=== PATIENT | female | born 1935 | race Hispanic/Latino ===

== ENCOUNTER 2017-02-23 10:45 | Emergency (ER) | payer MEDICARE, OTHER ==
[2017-02-23 11:02] VITALS: PULSE 87; RESP 18; TEMP 98.7; BMI 32.5
--- NOTE | 2017-02-23 11:48 | ED PDOC ---
Arrival/HPI - General Historian: Patient, Family (Daughter ) <Beto Rosas - Last Filed: 02/23/17 13:37> <NishBryant Davida - Last Filed: 02/23/17 13:54> - General Chief Complaint: Chest Pain Time Seen by Provider: 02/23/17 11:03 - History of Present Illness Narrative History of Present Illness (Text): 02/23/17 11:37 81 year old patient with a PMH of COPD, Emphysema, Asthma, Glaucoma and CT ~ 30 years ago. The patient has been experiencing back and right sided chest pains for the past 2 to 3 weeks. The pain was improving and yesterday the patient said it was all but resolved. This morning the patient was awoken from her sleep at 0430 this morning with a feeling of pressure in the left side of her chest. The pain is worse with deep inspiration and does not radiate anywhere. She had previously been taking Tylenol and using a heating pad on her back which relieved the pain. She took Tylenol and used the heating pad this morning but it did not help. She came into the ED today because this is the worst the pain has been. The patient states that she has been experiencing a productive cough for many months. The patient state she is bringing up white sputum when she coughs. She went to see her Geospatial Image Analyst, Dr. Razo, approximately 2 weeks ago for the cough and chest/back pains. They told patient to take Tylenol and apply a heat pad because they believed she had a pulled muscle as a result of the coughing. Patient recently had a stress on 02/16/17 which showed anterior septal changes but no changes from a previous stress test in 2014. Patient's lean manufacturing engineer is Dr. Mara Norman. She denies diaphoresis, n/v, palpitations, sob, lightheadedness, dizziness, numbness or tingling. PMH: COPD, Emphysema, Asthma, Glaucoma and CT ~ 30 years ago PSH: Cholecystecomy, total knee replacements b/l Family: unknown Social: former smoker, denies alcohol/illicit drug use Allergies: NKDA (Beto Rosas) Past Medical History - Provider Review Nursing Documentation Reviewed: Yes - Cardiac Hx CT: Yes (30 yrs ago) Hx Hypertension: Yes - Pulmonary Hx Chronic Obstructive Pulmonary Disease (COPD): Yes - Neurological Hx Neurological Disorder: No - HEENT Hx HEENT Disorder: No - Renal Hx Renal Disorder: No - Endocrine/Metabolic Hx Endocrine Disorders: No - Hematological/Oncological Hx Blood Disorders: No - Integumentary Hx Dermatological Disorder: No - Musculoskeletal/Rheumatological Hx Musculoskeletal Disorders: No - Gastrointestinal Hx Gastrointestinal Disorders: No - Genitourinary/Gynecological Hx Genitourinary Disorders: No - Psychiatric Hx Psychophysiologic Disorder: No Hx Substance Use: No - Surgical History Hx Vascular Access Device: Yes Other/Comment: B/L knees <Beto Rosas - Last Filed: 02/23/17 13:37> Family/Social History - Physician Review Nursing Documentation Reviewed: Yes Family/Social History: Unknown Family HX Smoking Status: Former Smoker Hx Alcohol Use: No Hx Substance Use: No <Beto Rosas - Last Filed: 02/23/17 13:37> Allergies/Home Meds <Beto Rosas - Last Filed: 02/23/17 13:37> <Bryant Mock - Last Filed: 02/23/17 13:54> Allergies/Adverse Reactions: Allergies No Known Allergies Allergy (Verified 12/19/14 10:31) Home Medications: Home Meds Medication Instructions Recorded Confirmed Ezetimibe/Simvastatin [Vytorin 10 1 tab PO DAILY 12/19/14 02/23/17 mg-20 mg] Fluticasone/Salmeterol 250/50 1 puff INH BID 12/19/14 02/23/17 [Advair Diskus 250/50] Latanoprost 0.005% Opht [Xalatan 1 drop BOTHEYES DAILY 12/19/14 02/23/17 Opht] Nitroglycerin 0.4 mg/hr [Nitro-Dur 1 patch TD DAILY 12/19/14 02/23/17 0.4 mg/hr Patch] diltiaZEM [Cardizem] 120 mg PO DAILY 12/19/14 02/23/17 Azelastine/Fluticasone [Dymista 23 spray INH DAILY 02/23/17 02/23/17 Nasal [place]] Metoprolol Succinate [Toprol XL] 25 mg PO DAILY 02/23/17 02/23/17 Review of Systems - Review of Systems Constitutional: Normal Eyes: absent: Vision Changes, Photophobia, Eye Pain ENT: Normal Respiratory: Cough, Sputum (white, long standing hx of productive cough). absent: SOB, Wheezing Cardiovascular: Chest Pain. absent: Palpitations, Edema, Calf Pain, Orthopnea, Syncope Gastrointestinal: absent: Abdominal Pain, Constipation, Diarrhea, Nausea, Vomiting, Appetite Changes Genitourinary Female: absent: Dysuria, Frequency, Hematuria Musculoskeletal: Back Pain (upper back, shoots from left to right side). absent : Neck Pain Skin: absent: Rash Neurological: absent: Headache, Dizziness, Speech Changes, Facial Droop Endocrine: absent: Diaphoresis Psychiatric: Normal <Beto Rosas - Last Filed: 02/23/17 13:37> Physical Exam Vital Signs Reviewed: Yes Temperature: Afebrile Blood Pressure: Normal Pulse: Regular Respiratory Rate: Normal Appearance: Positive for: Well-Appearing, Non-Toxic, Comfortable Pain Distress: None Mental Status: Positive for: Alert and Oriented X 3 - Systems Exam Head: Present: Atraumatic, Normocephalic Extroacular Muscles: Present: EOMI Conjunctiva: Present: Normal Mouth: Present: Moist Mucous Membranes Nose (External): Present: Atraumatic. No: Abrasion Nose (Internal): Present: Normal Inspection, No Active Bleeding, Moist Neck: Present: Normal Range of Motion. No: JVD Respiratory/Chest: Present: Clear to Auscultation, Tender to Palpation (left sternal boarder, extremely tender to palpation ). No: Respiratory Distress, Accessory Muscle Use, Wheezes, Retracting Cardiovascular: Present: Regular Rate and Rhythm, Normal S1, S2 Abdomen: Present: Normal Bowel Sounds. No: Tenderness, Distention, Peritoneal Signs, Guarding Back: No: Midline Tenderness, Paraspinal Tenderness Upper Extremity: Present: Normal Inspection, NORMAL PULSES. No: Edema, Tenderness Lower Extremity: Present: Normal Inspection. No: Edema, CALF TENDERNESS, Tenderness Neurological: Present: GCS=15 Skin: Present: Warm, Dry Lymphatic: No: Cervical Adenopathy Psychiatric: Present: Alert, Oriented x 3, Normal Insight, Normal Concentration <Beto Rosas - Last Filed: 02/23/17 13:37> Medical Decision Making - Lab Interpretations I have reviewed the lab results: Yes <Beto Rosas - Last Filed: 02/23/17 13:37> - Lab Interpretations I have reviewed the lab results: Yes - RAD Interpretation Guitar Repair Technician: Radiologist - EKG Interpretation Interpreted by ED Physician: Yes Type: 12 lead EKG <Bryant Mock - Last Filed: 02/23/17 13:54> ED Course and Treatment: 02/23/17 11:53 Chest pain - r/o ACS vs Costochondritis - EKG - NSR @87bpm, left axis deviation, Q waves in leads V1-V4 (previous anteroseptal infarct.) - CXR - no acute disease - Troponins - >0.01 - Toradol 30mg IVP given for pain control - No aspirin given due to patient took 81mg aspirin this morning. - Dr. Norman (cardio) contacted and is aware patient is in the ED. (AlisonBeto) 02/23/17 In agreement with resident note, which includes further HPI details. Patient was seen and evaluated with resident, came up with plan and treatment together. 02/23/17 12:30 EKG: NSR at 87 bpm with Q waves anteroseptal, LAD, no change from previous EKG Chest Pain r/o ACS vs MSK 02/23/17 13:52 On reevaluation, patient feels much better. No longer having pain with inhalation and most of the pain has subsided. Case was discussed with Dr. Norman who came to evaluate patient. He agrees that patient can be discharged home with close PMD and Cardiology follow up. Patient and daughter agree with plan. Advised to take tylenol for pain. Advised to return to the ED if symptoms worsen or any other concern. (Bryant Mock) - Lab Interpretations Lab Results: 02/23/17 11:55 02/23/17 11:55 Lab Results 02/23/17 11:55: Sodium 142, Potassium 4.0, Chloride 103, Carbon Dioxide 28, Anion Gap 15, BUN 15, Creatinine 0.5, Est GFR ( Amer) > 60, Est GFR (Non- Af Amer) > 60, Random Glucose 100, Calcium 10.0, Magnesium 2.0, Total Bilirubin 0.5, AST 39, ALT 36, Alkaline Phosphatase 144 H, Lactate Dehydrogenase 615, Total Creatine Kinase 79, Troponin I < 0.01, NT-Pro-B Natriuret Pep 308, Total Protein 7.5, Albumin 4.1, Globulin 3.4, Albumin/Globulin Ratio 1.2 02/23/17 11:55: WBC 12.4 H, RBC 4.57, Hgb 13.1, Hct 39.6, MCV 86.7, MCH 28.7, MCHC 33.1, RDW 15.8 H, Plt Count 384, MPV 8.4, Gran % 70.6 H, Lymph % (Auto) 20.6 L, Duchesne % (Auto) 7.6 H, Eos % (Auto) 0.9 L, Baso % (Auto) 0.3, Gran # 8.74 H, Lymph # 2.6, Duchesne # 0.9 H, Eos # 0.1, Baso # 0.04 - RAD Interpretation Radiology Orders: 02/23/17 11:34 CHEST PORTABLE [RAD] Stat - Medication Orders Current Medication Orders: Discontinued Medications Ketorolac Tromethamine (Toradol) 30 mg IVP STAT STA Stop: 02/23/17 11:33 Last Admin: 02/23/17 12:00 Dose: 30 mg <Beto Rosas - Last Filed: 02/23/17 13:37> - PA / TAX COMPLIANCE OFFICER / Resident Statement MD/DO has reviewed & agrees with the documentation as recorded. MD/DO has examined the patient and agrees with the treatment plan. - Scribe Statement The provider has reviewed the documentation as recorded by the Scribe <Bryant Mock - Last Filed: 02/23/17 13:54> - Scribe Statement 02/23/2017 Flaquita Jennings Attestation: All medical record entries made by the Scribe were at my direction and personally dictated by me. I have reviewed the chart and agree that the record accurately reflects my personal performance of the history, physical exam, medical decision making, and the department course for this patient. I have also personally directed, reviewed, and agree with the discharge instructions and disposition. (Bryant Mock) Disposition/Present on Arrival - Present on Arrival Any Indicators Present on Arrival: No History of DVT/PE: No History of Uncontrolled Diabetes: No Urinary Catheter: No History of Decub. Ulcer: No History Surgical Site Infection Following: None - Disposition Have Diagnosis and Disposition been Completed?: Yes Disposition Time: 13:30 Patient Plan: Discharge <Beto Rosas - Last Filed: 02/23/17 13:37> - Disposition Have Diagnosis and Disposition been Completed?: Yes <NishPalomoifrah Higuera - Last Filed: 02/23/17 13:54> - Disposition Diagnosis: Chest pain Disposition: HOME/ ROUTINE Condition: IMPROVED Discharge Instructions (ExitCare): Chest Pain (ED), Chest Pain (DC), Costochondritis (ED) Additional Instructions: Ms Mayen, thank you for letting us take care of you today. Your provider was Dr. Mock. You were treated for Chest Pain. The emergency medical care you received today was directed at your acute symptoms. If you were prescribed any medication, please fill it and take as directed. It may take several days for your symptoms to resolve. Return to the Emergency Department if your symptoms worsen, do not improve, or if you have any other problems. Please contact your doctor or call one of the physicians/clinics you have been referred to that are listed on the Patient Visit Information form that is included in your discharge packet. Bring any paperwork you were given at discharge with you along with any medications you are taking to your follow up visit. Our treatment cannot replace ongoing medical care by a primary care provider (PCP) outside of the emergency department. Thank you for allowing the mention team to be part of your care today. If you had an X-Ray or CT scan: A Radiologist will review the ED reading if any change in treatment is needed we will contact you. If you had a blood, urine, or wound culture: It will take several days for the results, if any change in treatment is needed we will contact you. If you had an STI test: It will take 48 hours for the results. Please call after 1 week if you have not heard back. Referrals: Mara Norman MD [Staff Provider] - Follow up with primary Demarcus Proctor MD [Primary Care Provider] - Follow up with primary Forms: [employer] (Portuguese)
[2017-02-23 12:05] LABS: BASO # 0.04 K/mm3 (0.0-2.0); BASO % 0.3 % (0.0-3.0); EOS # 0.1 (0.0-0.7); EOS % 0.9 % (1.5-5.0); GRAN # 8.74 (1.4-6.5); GRAN % 70.6 % (50.0-68.0); HEMATOCRIT 39.6 % (36.0-48.0); LYMPH # 2.6 (1.2-3.4); LYMPH % 20.6 % (22.0-35.0); MEAN CELL VOLUME 86.7 fl (80.0-105.0); MEAN CORPUSCULAR HEMOGLOBIN 28.7 pg (25.0-35.0); MEAN CORPUSCULAR HGB CONC 33.1 g/dl (31.0-37.0); MEAN PLATELET VOLUME 8.4 fl (7.0-11.0); MONO # 0.9 (0.1-0.6); MONO % 7.6 % (1.0-6.0); RED CELL DISTRIBUTION WIDTH 15.8 % (11.5-14.5); WHITE BLOOD COUNT 12.4 10^3/ul (4.5-11.0)
[2017-02-23 12:17] LABS: ALB/GLOB RATIO 1.2 (1.1-1.8); ALKALINE PHOSPHATASE 144 U/L (38-133); ALT/SGPT 36 U/L (7-56); AST/SGOT 39 U/L (15-39); BILIRUBIN,TOTAL 0.5 mg/dL (0.2-1.3); BLOOD UREA NITROGEN 15 mg/dL (7-21); CARBON DIOXIDE 28 mmol/L (21-33); CHLORIDE 103 mmol/L (98-107); GFR AFRICAN-AMERICAN > 60; GLUCOSE,RANDOM 100 mg/dL (70-110); SODIUM 142 mmol/L (132-148); TOTAL PROTEIN 7.5 g/dL (5.8-8.3)
[2017-02-23 12:32] LABS: TROPONIN I < 0.01 ng/mL
--- NOTE | 2017-02-23 12:36 | RAD ---
HISTORY: chest pain COMPARISON: No prior. FINDINGS: LUNGS: No active pulmonary disease. PLEURA: No significant pleural effusion identified, no pneumothorax apparent. CARDIOVASCULAR: Normal. OSSEOUS STRUCTURES: Old healed fracture right 8th rib posteriorly. VISUALIZED UPPER ABDOMEN: Normal. OTHER FINDINGS: None. IMPRESSION: No active disease.
[2017-02-23 13:29] VITALS: BP 114/66; O2SAT 96
--- NOTE | 2017-02-23 15:20 | CARD ---
APPROVED REPORT EKG Measurement Heart [id number] <Conclusion> Normal sinus rhythm Minimal voltage criteria for LVH, may be normal variant Anteroseptal infarct, age undetermined Abnormal ECG
--- NOTE | 2017-02-24 03:07 | CON ---
DATE: 02/23/2017 REASON FOR CONSULTATION: Cardiac evaluation and chest pain. BRIEF CLINICAL HISTORY: An 81-year-old female with a past medical history significant for hypertension, COPD, who came in with a complaint of 1 week off and on chest pain, increases on taking a deep breath. It initially started on the right side, then briefly on the left side, and increases when taking a deep breath. She got Toradol and was completely chest pain-free. Now, the patient feels an occasional twinge type of pain. No history of chest pain, no dyspnea on exertion. PAST HISTORY: Significant for COPD, hypertension, hyperlipidemia. CURRENT MEDICATIONS: The patient is taking Cardizem 120 mg, nitroglycerin patch, metoprolol 25 mg, Xalatan eye drops, Advair, Vytorin 10/20 one tablet daily, and nasal spray. ALLERGY: NO KNOWN DRUG ALLERGY. PREVIOUS CARDIAC WORKUP: As follows, the patient recently had a stress test done on 02/16/2017 that shows an essentially normal myocardial perfusion study, ejection fraction 63%, fixed defect, no reversible ischemia. In comparison to the last study from 12/19/2014, no significant changes are noted. REVIEW OF SYSTEMS: As per HPI. PHYSICAL EXAMINATION: As follows: VITAL SIGNS: Temperature afebrile, heart rate is 87, blood pressure 112/64. HEENT: PERRLA. Extraocular muscles are intact. NECK: Supple. No carotid bruit. No thyromegaly. CHEST: Clear to auscultation. HEART: S1 and S2, regular. ABDOMEN: Soft. EXTREMITIES: Clubbing and cyanosis negative. LABORATORY DATA: Blood workup as follows: WBC 12.5, hemoglobin 13.2, hematocrit 39.6, platelet count 384. Chemistry showed sodium 142, potassium 4, chloride 106, carbon dioxide 15, anion gap of 28, BUN 15, creatinine 0.5. Troponin 0.01. EKG shows normal sinus rhythm, poor R-wave progression, no acute ST-T wave changes noted. IMPRESSION: Atypical chest pain, increases with coughing, recent stress test 02/16/2017, one week ago was negative; history of chronic obstructive pulmonary disease; history of hypertension; history of diabetes, borderline; and history of hyperlipidemia. RECOMMENDATIONS: The patient is okay to be discharged. Discussed with ER physician, discussed with the patient, discussed with the daughter. If the chest pain recurs or if the patient gets diaphoretic or has heaviness in the chest, to come to the emergency room. So far, this chest pain appears musculoskeletal and increases on twisting and according to the patient and daughter, when she moves it hurts and she was unable to move when she came to the emergency room. After giving the Toradol, the patient feels a lot better. It also increases on taking a deep breath. So far, troponin is negative, no acute ST-T changes. PLAN: Okay to be discharged, continue followup in the office, but if the chest pain recurs or increases with shortness of breath on minimal exertion, please come to the emergency room. Thank you Dr. Proctor for providing me the opportunity in taking care of the patient. Mara Norman MD cc: Demarcus Proctor MD
== END 2017-02-23 13:49 | disposition home or self-care (01) ==
LOC: ED 10:45
DX: R07.9 Chest pain, unspecified (principal); I25.2 Old myocardial infarction; I10 Essential (primary) hypertension; J44.9 Chronic obstructive pulmonary disease, unspecified; Z87.891 Personal history of nicotine dependence
CPT/HCPCS: 71010; 80053; 82550; 83615; 83735; 83880; 84484; 85025; 93005; 96374; 99284; J1885

== ENCOUNTER 2017-04-29 14:11 | Inpatient (IN) | payer MEDICARE, OTHER ==
--- NOTE | 2017-04-29 15:07 | RAD ---
HISTORY: The only clinical history provided is "rule out infiltrate". Technique: Single view portable semi erect @ 14:44. COMPARISON: 02/23/2017 FINDINGS: LUNGS: Question mass, infiltrate AP window. The finding is marked on the study for review. The finding was not seen previously. PLEURA: No significant pleural effusion identified, no pneumothorax apparent. CARDIOVASCULAR: Cardiomegaly. No evidence of acute, significant cardiovascular disease. OSSEOUS STRUCTURES: No significant abnormalities. VISUALIZED UPPER ABDOMEN: Normal. OTHER FINDINGS: None. IMPRESSION: Left Upper lobe infiltrate/mass . Follow-up to resolution advised. Please note: No preliminary interpretation of this examination rendered by emergency department personnel (Physician and/or PA declined to provide preliminary report of their findings/ observations).
[2017-04-29 15:11] LABS: BASO # 0.03 K/mm3 (0.0-2.0); BASO % 0.2 % (0.0-3.0); EOS % 0.2 % (1.5-5.0); GRAN # 13.29 (1.4-6.5); GRAN % 85.2 % (50.0-68.0); HEMATOCRIT 35.7 % (36.0-48.0); LYMPH # 1.2 (1.2-3.4); LYMPH % 7.8 % (22.0-35.0); MEAN CELL VOLUME 87.5 fl (80.0-105.0); MEAN CORPUSCULAR HEMOGLOBIN 27.9 pg (25.0-35.0); MEAN CORPUSCULAR HGB CONC 31.9 g/dl (31.0-37.0); MEAN PLATELET VOLUME 8.6 fl (7.0-11.0); MONO % 6.6 % (1.0-6.0); WHITE BLOOD COUNT 15.6 10^3/ul (4.5-11.0)
[2017-04-29 15:23] LABS: ALB/GLOB RATIO 1.1 (1.1-1.8); ALKALINE PHOSPHATASE 133 U/L (38-126); ALT/SGPT 37 U/L (7-56); AST/SGOT 35 U/L (14-36); BILIRUBIN,TOTAL 0.9 mg/dL (0.2-1.3); BLOOD UREA NITROGEN 14 mg/dL (7-21); CARBON DIOXIDE 30 mmol/L (21-33); CHLORIDE 103 mmol/L (98-107); GFR AFRICAN-AMERICAN > 60; GLUCOSE,RANDOM 136 mg/dL (70-110); MAGNESIUM 1.9 mg/dL (1.7-2.2); POTASSIUM 3.7 mmol/L (3.6-5.0); SODIUM 141 mmol/L (132-148); TOTAL PROTEIN 6.7 g/dL (5.8-8.3)
[2017-04-29] MEDS: Albuterol-Ipratrop 3 mg / 0.5 (3 ml) UD IH SCH ×4 (15:25→20:21)
[2017-04-29] MEDS ORDERED: Iohexol 350 MG/100 ML VIAL ONE (15:48)
[2017-04-29 15:56] LABS: TROPONIN I 0.46 ng/mL
[2017-04-29] MEDS ORDERED: cefTRIAXone 1 gm 1 GM/100 ML BAG IVPB STA (17:54)
[2017-04-29] MEDS ORDERED: Azithromycin 500MG/NS 250ml 500 MG/250 ML BAG IVPB STA (17:54)
[2017-04-29 17:59] LABS: PH,URINE 6.5 (4.7-8.0); URINE BILIRUBIN NEGATIVE (NEGATIVE); URINE BLOOD SMALL (NEGATIVE); URINE GLUCOSE (UA) NEGATIVE (NEGATIVE); URINE KETONE 15 mg/dL (NEGATIVE); URINE LEUKOCYTE ESTERASE TRACE Leu/uL (NEGATIVE); URINE PROTEIN NEGATIVE mg/dL (<30 mg/dL); URINE UROBILINOGEN 0.2 E.U./dL (<1 E.U./dL)
--- NOTE | 2017-04-29 18:02 | CT ---
PROCEDURE: CT Chest with contrast (Pulmonary Angiogram) HISTORY: r/o PE/mass COMPARISON: None available. TECHNIQUE: Axial computed tomography images were obtained of the chest in the pulmonary arterial phase of enhancement. Coronal and sagittal reformatted images were created and reviewed. Intravenous contrast dose: Unknown contrast dose. Technologist failed to document dose of contrast administered. There is failure on the part of the technologist to probably document via Smart prep technique exactly where the pulmonary artery will was identified resulting in suboptimal injection. Mean Hounsfield unit values in the main pulmonary artery: 178.36. Radiation dose: Total exam DLP = 469.49 mGy-cm. This CT exam was performed using one or more of the following dose reduction techniques: Automated exposure control, adjustment of the mA and/or kV according to patient size, and/or use of iterative reconstruction technique. FINDINGS: Complex primarily cystic mass with Hounsfield unit values ranging between the 11 and 32 which appears to be contiguous with the descending aorta left main pulmonary artery, lobar branches. The mass circumferentially impresses upon the left mainstem bronchus. The mass is difficult to quantify as it is somewhat diffuse, infiltrative. At the level of the pulmonary arteries and left mainstem bronchus the mass measures 6 x 6.9 x 3.5 cm. The mass also displays contiguity with the wall of the mid esophagus. PULMONARY ARTERIES: Nondiagnostic study beyond the main and lobar branches of the pulmonary arterial system. . AORTA: No acute findings. No thoracic aortic aneurysm. LUNGS: Peripheral infiltrates multiple segments of the right lower lobe and left lower lobe. PLEURAL SPACES: Trace HEART: Unremarkable. No cardiomegaly. No significant pericardial effusion. LYMPH NODES: No lymphadenopathy. BONES, CHEST WALL: Unremarkable. No fracture or destructive lesion OTHER FINDINGS: Unremarkable. IMPRESSION: No large, central pulmonary emboli. Limitations of the study been described in greater detail above. 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 The mass displays contiguity with the descending aorta. A sub carinal component is also identified. Communication of results and limitations of the procedure discussed with the attending physician in the emergency department at 17:04 at and 17:53.
[2017-04-29 18:04] LABS: URINE APPEARANCE CLEAR (CLEAR); URINE COLOR YELLOW (YELLOW)
[2017-04-29 18:06] LABS: URINE AMORPHOUS SEDIMENT FEW; URINE BACTERIA MANY (NEG)
[2017-04-29] MEDS: Enoxaparin 80 mg Syringe SC SCH (18:11)
--- NOTE | 2017-04-29 18:38 | ED PDOC ---
Arrival/HPI - General Chief Complaint: Medical Clearance Time Seen by Provider: 04/29/17 14:30 Historian: Patient - History of Present Illness Narrative History of Present Illness (Text): 04/29/17 14:30 An 81 year old female, whose past medical history includes COPD, Emphysema and Asthma, presents to the emergency department with daughter for cough. Patient was referred to come to the emergency department by PMD today. Patient has a persistent dry cough for the past 2-3 months. Reports dyspnea on exertion over the same time period, cough and dyspnea on exertion increasing. Denies any fever , chest pain, shortness of breath or any other complaints at this time. History of smoking in the past, hasn't smoked in 20+ years. PMD: Dr. Proctor Time/Duration: > month Symptom Onset: Sudden Symptom Course: Unchanged Activities at Onset: Rest Context: Home Past Medical History - Provider Review Nursing Documentation Reviewed: Yes - Infectious Disease Hx of Infectious Diseases: None - Cardiac Hx CA: Yes (30 yrs ago) Hx Hypertension: Yes - Pulmonary Hx Chronic Obstructive Pulmonary Disease (COPD): Yes - Neurological Hx Neurological Disorder: No - HEENT Hx HEENT Disorder: No - Renal Hx Renal Disorder: No - Endocrine/Metabolic Hx Endocrine Disorders: No - Hematological/Oncological Hx Blood Disorders: No - Integumentary Hx Dermatological Disorder: No - Musculoskeletal/Rheumatological Hx Musculoskeletal Disorders: No - Gastrointestinal Hx Gastrointestinal Disorders: No - Genitourinary/Gynecological Hx Genitourinary Disorders: No - Psychiatric Hx Psychophysiologic Disorder: No Hx Substance Use: No - Surgical History Hx Vascular Access Device: Yes Other/Comment: B/L knees Family/Social History - Physician Review Nursing Documentation Reviewed: Yes Family/Social History: No Known Family HX Smoking Status: Former Smoker Hx Alcohol Use: No Hx Substance Use: No Allergies/Home Meds Allergies/Adverse Reactions: Allergies No Known Allergies Allergy (Verified 04/29/17 14:25) Home Medications: Home Meds Medication Instructions Recorded Confirmed Ezetimibe/Simvastatin [Vytorin 10 1 tab PO DAILY 12/19/14 04/29/17 mg-20 mg] Fluticasone/Salmeterol 250/50 1 puff INH BID 12/19/14 04/29/17 [Advair Diskus 250/50] Latanoprost 0.005% Opht [Xalatan 1 drop BOTHEYES DAILY 12/19/14 04/29/17 Opht] Nitroglycerin 0.4 mg/hr [Nitro-Dur 1 patch TD DAILY 12/19/14 04/29/17 0.4 mg/hr Patch] diltiaZEM [Cardizem] 120 mg PO DAILY 12/19/14 04/29/17 Azelastine/Fluticasone [Dymista 1 spray INH DAILY 02/23/17 04/29/17 Nasal [place]] Metoprolol Succinate [Toprol XL] 25 mg PO DAILY 02/23/17 04/29/17 Aspirin [Ecotrin] 81 mg PO DAILY 04/29/17 04/29/17 Promethazine HCl/Codeine 1 tsp PO TID 04/29/17 04/29/17 Review of Systems - Physician Review All systems were reviewed & negative as marked: Yes - Review of Systems Constitutional: absent: Fevers Respiratory: Cough. absent: SOB Cardiovascular: [place]. absent: Chest Pain Physical Exam Vital Signs Reviewed: Yes Vital Signs Temp Pulse Resp BP Pulse Ox 04/29/17 16:34 100 H 17 130/81 95 04/29/17 14:27 98.5 F 99 H 16 139/78 95 Temperature: Afebrile Blood Pressure: Normal Pulse: Regular Respiratory Rate: Normal Appearance: Positive for: Well-Appearing, Non-Toxic, Comfortable Pain Distress: None Mental Status: Positive for: Alert and Oriented X 3 - Systems Exam Head: Present: Atraumatic, Normocephalic Pupils: Present: PERRL Extroacular Muscles: Present: EOMI Conjunctiva: Present: Normal Mouth: Present: Moist Mucous Membranes Neck: Present: Normal Range of Motion Respiratory/Chest: Present: Wheezes (mild b/l expiratory wheezing), Decreased Breath Sounds (left side). No: Accessory Muscle Use Cardiovascular: Present: Regular Rate and Rhythm, Normal S1, S2. No: Murmurs Abdomen: Present: Normal Bowel Sounds. No: Tenderness, Distention, Peritoneal Signs Back: Present: Normal Inspection Upper Extremity: Present: Normal Inspection. No: Cyanosis, Edema Lower Extremity: Present: Normal Inspection. No: Edema Neurological: Present: GCS=15, CN II-XII Intact, Speech Normal Skin: Present: Warm, Dry, Normal Color. No: Rashes Psychiatric: Present: Alert, Oriented x 3, Normal Insight, Normal Concentration Medical Decision Making ED Course and Treatment: 04/29/17 14:35 Impression: An 81 year old female with cough and dyspnea on exertion. Plan: -- EKG -- Chest xray -- Chest CT -- labs -- Urinalysis -- Duoneb, Solumedrol -- Reassess and disposition Prior Visits: Notes and results from previous visits were reviewed. Patient last reported to the emergency department on 02/23/17 for evaluation of back pain and right sided chest pain. Progress Notes: EKG: Ordered, reviewed, and independently interpreted the EKG. Rate : 97 BPM Rhythm : NSR Interpretation : left axis deviation, normal intervals. 04/29/17 15:09 Chest xray: Creator : Joseph Márquez MD IMPRESSION: Left Upper lobe infiltrate/mass . Follow-up to resolution advised. 04/29/17 18:04 CT Chest with contrast (Pulmonary Angiogram) Creator : Joseph Márquez MD FINDINGS: Complex primarily cystic mass with Hounsfield unit values ranging between the 11 and 32 which appears to be contiguous with the descending aorta left main pulmonary artery, lobar branches. The mass circumferentially impresses upon the left mainstem bronchus. The mass is difficult to quantify as it is somewhat diffuse, infiltrative. At the level of the pulmonary arteries and left mainstem bronchus the mass measures 6 x 6.9 x 3.5 cm. The mass also displays contiguity with the wall of the mid esophagus. PULMONARY ARTERIES: Nondiagnostic study beyond the main and lobar branches of the pulmonary arterial system. . AORTA: No acute findings. No thoracic aortic aneurysm. LUNGS: Peripheral infiltrates multiple segments of the right lower lobe and left lower lobe. PLEURAL SPACES: Trace HEART: Unremarkable. No cardiomegaly. No significant pericardial effusion. LYMPH NODES: No lymphadenopathy. BONES, CHEST WALL: Unremarkable. No fracture or destructive lesion IMPRESSION: No large, central pulmonary emboli. Limitations of the study been described in greater detail above. 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 The mass displays contiguity with the descending aorta. A sub carinal component is also identified. Communication of results and limitations of the procedure discussed with the attending physician in the emergency department at 17:04 at and 17:53. Spoke with Dr. Proctor about elevated troponin, lab work and CT results. Will not do a 2nd CTA. Will order antibiotics, Lovenox, Aspirin and admit patient to telemetry for further workup. - Lab Interpretations Lab Results: 04/29/17 14:45 04/29/17 14:45 Lab Results 04/29/17 17:40: Urine Color Yellow, Urine Appearance Clear, Urine pH 6.5, Ur Specific [place] <= 1.005, Urine Protein Negative, Urine Glucose (UA) Negative, Urine Ketones 15 H, Urine Blood Small H, Urine Nitrate Negative, Urine Bilirubin Negative, Urine Urobilinogen 0.2, Ur Leukocyte Esterase Trace H, Urine RBC 5 - 10, Urine WBC 2 - 5, Ur Epithelial Cells 6 - 8, Amorphous Sediment Few, Urine Bacteria Many, Urine Other Uyeast 04/29/17 14:45: Sodium 141, Potassium 3.7, Chloride 103, Carbon Dioxide 30, Anion Gap 12, BUN 14, Creatinine 0.5 L, Est GFR ( Amer) > 60, Est GFR ( Non-Af Amer) > 60, Random Glucose 136 H, Calcium 9.0, Magnesium 1.9, Total Bilirubin 0.9, AST 35, ALT 37, Alkaline Phosphatase 133 H, Lactate Dehydrogenase 2004 H, Total Creatine Kinase 52, Troponin I 0.46 H* D, NT-Pro-B Natriuret Pep 1810 H, Total Protein 6.7, Albumin 3.5, Globulin 3.2, Albumin/ Globulin Ratio 1.1 04/29/17 14:45: WBC 15.6 H D, RBC 4.08, Hgb 11.4 L, Hct 35.7 L, MCV 87.5, MCH 27.9, MCHC 31.9, RDW 16.0 H, Plt Count 342, MPV 8.6, Gran % 85.2 H, Lymph % ( Auto) 7.8 L, [place] % (Auto) 6.6 H, Eos % (Auto) 0.2 L, Baso % (Auto) 0.2, Gran # 13.29 H, Lymph # 1.2, [place] # 1.0 H, Eos # 0.0, Baso # 0.03 I have reviewed the lab results: Yes - RAD Interpretation Radiology Orders: 04/29/17 14:30 CHEST PORTABLE [RAD] Stat 04/29/17 15:02 ANGIO CHEST PE PROTOCOL [CT] Stat - EKG Interpretation Interpreted by ED Physician: Yes Type: 12 lead EKG - Medication Orders Current Medication Orders: Enoxaparin Sodium (Lovenox) 80 mg SC Q12H ERMA PRN Reason: Protocol Last Admin: 04/29/17 18:11 Dose: 80 mg Subcutaneous Administrations Document 04/29/17 18:11 (Rec: 04/29/17 18:11 [facility] [id number] Charges for Administration # of Subcutaneous Administrations 1 Azithromycin (Zithromax 500mg In Ns) 500 mg in 250 mls @ 167 mls/hr IVPB STAT STA PRN Reason: Protocol Stop: 04/29/17 19:23 Discontinued Medications Albuterol/Ipratropium (Duoneb 3 Mg/0.5 Mg (3 Ml) Ud) 3 ml IH Q15M ERMA Stop: 04/29/17 15:46 Last Admin: 04/29/17 15:55 Dose: 3 ml Aspirin (Aspirin) 325 mg PO STAT STA Stop: 04/29/17 17:56 Last Admin: 04/29/17 18:11 Dose: 325 mg Ceftriaxone Sodium (Rocephin 1 Gram Ivpb) 1 gm in 100 mls @ 200 mls/hr IVPB STAT STA PRN Reason: Protocol Stop: 04/29/17 18:23 Last Admin: 04/29/17 18:14 Dose: 200 mls/hr eMAR Start Stop Document 04/29/17 18:14 (Rec: 04/29/17 18:14 [facility] [id number]) Intravenous Solution Start Date 04/29/17 Start Time 18:14 Methylprednisolone (Solu-Medrol) 125 mg IVP STAT STA Stop: 04/29/17 15:04 Last Admin: 04/29/17 15:38 Dose: 125 mg IVP Administration Document 04/29/17 15:38 (Rec: 04/29/17 15:39 [facility] [id number]) Charges for Administration # of IVP Administrations 1 - Scribe Statement The provider has reviewed the documentation as recorded by the Scribe Raj Riggs All medical record entries made by the Scribe were at my direction and personally dictated by me. I have reviewed the chart and agree that the record accurately reflects my personal performance of the history, physical exam, medical decision making, and the department course for this patient. I have also personally directed, reviewed, and agree with the discharge instructions and disposition. Disposition/Present on Arrival - Present on Arrival Any Indicators Present on Arrival: No History of DVT/PE: No History of Uncontrolled Diabetes: No Urinary Catheter: No History of Decub. Ulcer: No History Surgical Site Infection Following: None - Disposition Have Diagnosis and Disposition been Completed?: Yes Diagnosis: Elevated troponin, Pulmonary mass, Pneumonia Disposition: HOSPITALIZED Disposition Time: 16:00 Condition: GUARDED
[2017-04-29] MEDS ORDERED: Albuterol-Ipratrop 3 mg / 0.5 (3 ml) UD IH PRN (19:41)
[2017-04-29] MEDS ORDERED: Dextrose 5%/0.45% NS 1,000 ML IV SCH (19:45)
[2017-04-29 21:30] VITALS: BMI 30.2
[2017-04-29] MEDS ORDERED: Pneumococcal 23-Valent Vaccine IM ONE (21:31)
[2017-04-29] MEDS ORDERED: Influenza Vaccine 60 mcg/0.5 mL SYR (4YR UP) IM ONE (21:31)
[2017-04-29 21:51] LABS: TROPONIN I 0.37 ng/mL
[2017-04-29] MEDS: MethylPREDNISolone 40 mg Vial IV SCH (22:06)
[2017-04-30] MEDS: Albuterol-Ipratrop 3 mg / 0.5 (3 ml) UD IH SCH ×5 (01:02→19:50)
[2017-04-30] MEDS: Enoxaparin 80 mg Syringe SC SCH ×2 (05:08→18:35)
--- NOTE | 2017-04-30 05:36 | HP ---
HISTORY OF PRESENT ILLNESS: The patient is an 81-year-old known to me from office practice. The patient states she has been having cough for almost [address] Razo on multiple occasions who started on tapering dose of steroid, gave different courses of antibiotics and also gave inhalers with no significant relief. The patient states she has been feeling lately very tired. I saw her 3 days ago in the office and I advised her to continue on the same medication. Yet I gave her prescription to have a CT scan done since she admitted. She has been losing weight, losing appetite. I had a suspicion that there might be underlying malignancy, but the patient did not go for CT scan. She showed up in office today again with similar complaint and daughter states since last 3 days her condition has deteriorated. She is generally weak, unable to stand up, unable to walk, so it was advised to send her to emergency room for further evaluation. She does complain of feeling weak. No history of fever, no chills, no hemoptysis and complaint of dry cough, more so at night, so I gave her Pepcid, I gave her Advair 500/50 one puff twice a day and she was advised to continue her prednisone, but her weakness got worse, so she came to ER. PAST MEDICAL HISTORY: Significant for; 1. Morbid obesity. 2. Anxiety disorder. 3. Hypertension. 4. Hyperlipidemia. PAST SURGICAL HISTORY: Recently, she had total knee replacement almost 2 years ago, has been doing well. ALLERGIES: SHE IS NOT ALLERGIC TO ANY MEDICATIONS. MEDICATIONS AT HOME: She is on diltiazem 120 mg daily. She is on *------* and metoprolol 25 daily. She uses Xalatan eye drops, fluticasone, she is on Vytorin, Dymista, aspirin. SOCIAL HISTORY: She is single, lives with her daughter, has history of smoking in remote past, but not for the last few years. 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 REVIEW OF SYSTEMS: Generalized weakness, poor appetite, difficulty walking, and chronic cough for 2 months. PHYSICAL EXAMINATION: GENERAL: She was awake, alert and able to communicate, but was having difficulty walking. VITAL SIGNS: She is afebrile, pulse of 99, respirations 16 and blood pressure 130/81. LUNGS: Bilateral fair airflow in upper lung region, does have some soft crackle at bases. HEART: S1 and S2, audible. ABDOMEN: Soft, obese, nontender. No rebound. No guarding. NEUROLOGIC: She is awake and alert, able to communicate, but had generalized weakness. EXTREMITIES: Bilateral leg +1 edema. LABORATORY EXAM: WBC 15.6, hemoglobin 11.4, hematocrit 35.7 and platelets 342,000. Chemistry: Sodium 141, potassium 3.7, chloride 103, CO2 of 30, BUN 14, creatinine 0.5 and blood sugar of 136. LFT's were within normal limits. Alkaline phosphatase is 133, LDH is 2004, troponin is 0.46. CPK 52. Urinalysis is trace leukocyte. She had CT scan of the chest done that shows complex primarily cystic mediastinal mass, circumferentially developing left pulmonary artery and esophageal mass, display continuity with the descending aorta. No pulmonary embolus. X-ray shows left upper lobe infiltrate. ASSESSMENT: 1. Left upper lobe infiltrate. 2. Exertional dyspnea. 3. Chronic cough. 4. Rule out underlying malignancy. 5. Hypertension. 6. Hyperlipidemia. 7. Generalized osteoarthritis. 8. Generalized weakness. PLAN: 1. Admit the patient on telemetry. The patient has positive troponin, could be strain pattern, rule out coronary artery disease. 2. We will start the patient on IV fluids, nebulizer treatment, small dose of steroid. Started on IV antibiotics. I will follow up cardiac enzyme. I will request for Pulmonary and Cardiology evaluation. Demarcus Proctor MD
[2017-04-30 08:09] LABS: ALB/GLOB RATIO 1.1 (1.1-1.8); ALKALINE PHOSPHATASE 128 U/L (38-126); ALT/SGPT 38 U/L (7-56); AST/SGOT 32 U/L (14-36); BILIRUBIN,TOTAL 0.6 mg/dL (0.2-1.3); BLOOD UREA NITROGEN 12 mg/dL (7-21); CALCIUM 8.9 mg/dL (8.4-10.5); CARBON DIOXIDE 28 mmol/L (21-33); CHLORIDE 104 mmol/L (98-107); GFR AFRICAN-AMERICAN > 60; GLUCOSE,RANDOM 163 mg/dL (70-110); POTASSIUM 3.8 mmol/L (3.6-5.0); SODIUM 141 mmol/L (132-148); TOTAL PROTEIN 6.6 g/dL (5.8-8.3)
[2017-04-30 08:16] LABS: FREE T4 2.04 ng/dL (0.78-2.19)
[2017-04-30 08:30] LABS: THYROID STIMULATING HORMONE 0.2 mIU/mL (0.46-4.68)
[2017-04-30] MEDS: MethylPREDNISolone 40 mg Vial IV SCH ×2 (10:24→21:16)
[2017-04-30] MEDS: Azithromycin 500MG/NS 250ml 500 MG/250 ML BAG IVPB SCH (10:25)
[2017-04-30] MEDS: cefTRIAXone 1 gm 1 GM/100 ML BAG IVPB SCH (10:25)
--- NOTE | 2017-04-30 11:18 | CON ---
CARDIOLOGY CONSULTATION (Dr. Norman) DATE OF CONSULTATION: 04/30/2017 HISTORY: The patient is an 81-year-old woman who presents with chest pain and dyspnea. The patient's past medical history is notable for severe COPD followed by pulmonary. The patient had a stress test several months ago which was abnormal, but was unchanged from her previous. In her workup in the emergency room, CT scan suggested a lung mass. In addition, her troponins were found to be elevated consistent with a non-STEMI. The patient currently is in bed with mild dyspnea. No chest pain noted. SOCIAL HISTORY: The patient is a former heavy smoker in which she states she has stopped. REVIEW OF SYSTEMS: A 14-point review of systems was reviewed in detail. No additional symptomatology is noted. PHYSICAL EXAMINATION: VITAL SIGNS: Blood pressure is 129/71, the heart rate is in the 80s. NECK: Negative JVD. LUNGS: Bilateral rhonchi and with wheezing. HEART: Reveal S1, S2. EXTREMITIES: Without edema. EKG shows normal sinus rhythm with nonspecific ST-T changes. LABORATORY DATA: Includes troponins which are elevated to 0.46, glucose is 163, BUN and creatinine are unremarkable. The hemoglobin is 11.4. IMPRESSION: 1. Non-ST elevation myocardial infarction. 2. Unstable angina. 3. High probability for coronary artery disease. 4. Chronic obstructive pulmonary disease. 5. Lung mass. 6. Dyspnea. Given these findings, the patient has been started on aspirin and subcu Lovenox. We cannot add beta-blockers to her regimen at this time given her expiratory wheezing. We will need to consult with Cardiology and Pulmonology together to decide on whether to do invasive cardiac procedures given the patient with a CT scan that suggest of a lung mass. Roderick Sosa MD
--- NOTE | 2017-04-30 12:01 | PN ---
DATE: SUBJECTIVE: The patient is an 81-year-old seen and examined seems to be doing a little better than yesterday. Still has cough and congestion. PHYSICAL EXAMINATION VITAL SIGNS: She is afebrile, pulse 86, respirations 20, and blood pressure 129/71. LUNGS: Bilateral soft crackle worse on the left upper lung lesion. HEART: S1 and S2 audible. ABDOMEN: Soft, obese, and nontender. No rebound. No guarding. NEUROLOGIC: She is awake, alert, and able to communicate. LABORATORY DATA: Sodium 141, potassium 3.8, chloride 104, CO2 28, BUN 12, and creatinine 0.4. Blood sugar of 163. Followup troponin 0.30. TSH is 0.20. ASSESSMENT: 1. Left upper lobe infiltrate versus mass. 2. Chronic obstructive pulmonary disease. 3. History of hypertension. 4. Leukocytosis. 5. Hyperlipidemia. 6. Generalized osteoarthritis. 7. Bilateral knee osteoarthritis. PLAN: Currently, the patient is on IV antibiotic. She seems to be eating well. I will discontinue IV fluid, order for echocardiogram, continue nebulizer treatment, continue on Lovenox until we decide that she is going for lung biopsy for mass, and I will cut down the steroid to 30 q.12, and continue Zithromax and Rocephin. Demarcus Proctor MD
--- NOTE | 2017-04-30 12:25 | CARD ---
APPROVED REPORT EKG Measurement Heart [id number] <Conclusion> Normal sinus rhythm Left axis deviation Anteroseptal infarct, age undetermined ST & T wave abnormality, consider artifacts Abnormal ECG
--- NOTE | 2017-04-30 21:18 | CON ---
PULMONARY CONSULTATION DATE: 04/30/2017 LOCATION: Room 277. HISTORY OF PRESENT ILLNESS: Valeria is an 81-year-old female, well known to my associate Dr. Razo. The patient has COPD and is taking anticholinergics, long-acting bronchodilators, and inhaled corticosteroids. She has had progressive weight loss and Dr. Proctor has done a CT of the chest, which shows dramatic findings to be discussed below. The patient is still in acute bronchospasm with cough and expectoration. She has weight loss, decreased appetite. She was treated at home with medications, but failed to respond. She was, therefore, admitted. PAST MEDICAL HISTORY: Discussed with Dr. Proctor. History of hypertension and hyperlipidemia, anxiety, COPD, morbid obesity with current weight loss, suspected underlying malignancy. PAST SURGICAL HISTORY: Knee replacements x2. ALLERGIES: NO KNOWN ALLERGIES. MEDICATIONS: Include fluticasone, Dymista, Advair, metoprolol, and diltiazem. FAMILY HISTORY: COPD, smokers, coronary artery disease. SOCIAL HISTORY: Has a history of smoking in the remote past, but not recently. No travel exposure. No occupational exposure. She is a teacher in special education. No pets at home. REVIEW OF SYSTEMS: Has been reviewed at length. All of the problems discussed here are discussed in the history of present illness. There is prolonged cough of 2 months, wheezing, expectoration, generalized weakness, poor appetite, weight loss, etc. No additional history is obtained. All other systems negative. PHYSICAL EXAMINATION: GENERAL: The patient is in no acute respiratory distress, but coughs continuously. VITAL SIGNS: Show respiratory rate of 18, pulse of 80, blood pressure of 140/90, oxygen sat of 99%. HEART: Regular rhythm. S1 and S2 without murmur, gallop, or rub. LUNGS: Bilateral rales and rhonchi. Minimal wheezes are appreciated today. ABDOMEN: Soft. Bowel sounds are normoactive. EXTREMITIES: Reveal no clubbing, cyanosis, or edema. There is no Jose Antonio sign. No lymphadenopathy is noted in the supraclavicular notch nor in the cervical, inguinal, or axillary areas. SKIN: Dry; intact LABORATORY DATA: Has been reviewed and discussed with PMD. The CAT scan shows multiple problems. It was done yesterday in the late afternoon. It has been reviewed in its entirety. There are no emboli in the center of the chest, poor dye administration. There is mediastinal mass circumscribing the pulmonary artery and portions of the esophagus. There is contiguity with the descending aorta. There is a subcarinal component. Laboratory studies as well have been reviewed and show a white count of 15,000, platelet count 342,000. Chemistry abnormalities include a creatinine of 0.4, sugar of 163, alk phos of 128, troponin of 0.46, BNP of 1810. The EKG, sinus rhythm, nonspecific ST-T wave changes. CLINICAL IMPRESSION: 1. Lung mass in the center of the lung circumventing great vessels and airways. 2. Dyspnea. 3. Chronic cough for 2 months. 4. Chronic obstructive pulmonary disease. PLAN: Continue treatment for the acute bronchospasm. Rule out coronary artery disease, possible myocardial infarction. Once the patient is stable from a cardiac point of view and pulmonary, she will require biopsy of the chest masses. Dr. Razo will return tomorrow. He will be happy to see his patient. I will discuss our findings with him and he will take over as of tomorrow morning. Thank you for the opportunity to see this patient. Bryn Morocho MD MTDD
[2017-05-01] MEDS: Albuterol-Ipratrop 3 mg / 0.5 (3 ml) UD IH SCH ×4 (01:42→19:45)
[2017-05-01] MEDS: Enoxaparin 80 mg Syringe SC SCH ×2 (05:58→17:34)
[2017-05-01] MEDS: Pantoprazole 40 mg EC Tab PO SCH (05:58)
[2017-05-01 06:31] LABS: GRAN # 14.09 (1.4-6.5); GRAN % 90.8 % (50.0-68.0); HEMATOCRIT 32.1 % (36.0-48.0); LYMPH # 0.7 (1.2-3.4); LYMPH % 4.4 % (22.0-35.0); MEAN CELL VOLUME 87.5 fl (80.0-105.0); MEAN CORPUSCULAR HEMOGLOBIN 28.1 pg (25.0-35.0); MEAN CORPUSCULAR HGB CONC 32.1 g/dl (31.0-37.0); MEAN PLATELET VOLUME 8.7 fl (7.0-11.0); MONO # 0.7 (0.1-0.6); MONO % 4.8 % (1.0-6.0); PLATELET COUNT 351 10^3/uL (120.0-450.0); RED CELL DISTRIBUTION WIDTH 16.1 % (11.5-14.5); WHITE BLOOD COUNT 15.5 10^3/ul (4.5-11.0)
[2017-05-01 07:11] LABS: ALB/GLOB RATIO 1.1 (1.1-1.8); ALKALINE PHOSPHATASE 118 U/L (38-126); ALT/SGPT 34 U/L (7-56); AST/SGOT 40 U/L (14-36); BILIRUBIN,TOTAL 0.5 mg/dL (0.2-1.3); BLOOD UREA NITROGEN 17 mg/dL (7-21); CALCIUM 8.9 mg/dL (8.4-10.5); CARBON DIOXIDE 29 mmol/L (21-33); CHLORIDE 107 mmol/L (98-107); GFR AFRICAN-AMERICAN > 60; GLUCOSE,RANDOM 169 mg/dL (70-110); POTASSIUM 3.7 mmol/L (3.6-5.0); SODIUM 142 mmol/L (132-148); TOTAL PROTEIN 6.2 g/dL (5.8-8.3)
--- NOTE | 2017-05-01 07:37 | PN ---
DATE: 05/01/2017 SUBJECTIVE: The patient appears comfortable this morning. She is not short of breath at rest. OBJECTIVE: VITAL SIGNS: Temperature is 98.3, pulse on the monitor is 88, respirations 19, blood pressure 132/83. oxygen saturation on nasal cannula is 96% to 97%. HEENT: Normocephalic and atraumatic. No JVD. CARDIOVASCULAR: Systolic ejection murmur at the lower left sternal border. No S3 gallop. LUNGS: Decreased breath sounds at the bases. Minimal bilateral rhonchi. Minimal bilateral wheezing. EXTREMITIES: Mild edema. No cyanosis, no clubbing. Calves are nontender to palpation. GASTROINTESTINAL: Abdomen is soft, nontender and nondistended. Bowel sounds are positive. SKIN: No acute rash. NEUROLOGIC: Limited at the present time. IMPRESSION: 1. Mediastinal/lung mass. 2. Acute myocardial infarction. 3. Chronic obstructive pulmonary disease. 4. Recurrent bronchitis. 5. Rule out pneumonia. 6. Mild anemia. PLAN: The patient appears comfortable this morning. She is not short of breath at rest. She does state to feeling better overall. On physical exam, there is still mild bronchospasm present. I will continue with the current nebulizer treatments and intravenous steroids for now. I will also add inhaled Pulmicort. I did review the CAT scan chest results. I have also reviewed all of the notes- - since the patient has been in the hospital. Dr. Alex (Interventional Radiology) has been called on the case for lung biopsy. Cardiology evaluation is also noted. Input by Dr. Sosa is noted. The patient is currently on therapeutic Lovenox. Lastly, the patient remains on antibiotic therapy. In addition to the mediastinal/lung mass, there were also some minimal peripheral infiltrates noted in the right lower lobe( on CAT scan). I will also order a procalcitonin this morning - to try to distinguish whether we are dealing with an acute pneumonia or not. Repeat a.m. labs are pending. The patient's clinical status is certainly improved-- prior to compared to the initial presentation. However, her overall status/prognosis does remain very guarded. I will discuss the above with the attending physician this morning. I did discuss the above with the patient at length this morning. Donato Razo MD DARIEN
[2017-05-01] MEDS: Budesonide 0.5 mg/2 ml Inhal Susp UD IH SCH ×2 (07:51→19:46)
[2017-05-01 08:37] LABS: NEUTROPHIL 90 % (50.0-70.0)
[2017-05-01] MEDS: MethylPREDNISolone 40 mg Vial IV SCH ×2 (09:09→21:38)
[2017-05-01] MEDS: cefTRIAXone 1 gm 1 GM/100 ML BAG IVPB SCH (09:09)
[2017-05-01] MEDS ORDERED: Midazolam 2 MG/2 ML VIAL ONE (10:54)
[2017-05-01] MEDS ORDERED: Potassium Chloride 20 mEq ER Tab PO ONE (11:11)
[2017-05-01] MEDS ORDERED: Sodium Chloride 0.45% 1,000 ML IV SCH (11:30)
[2017-05-01] MEDS: Oxycodone/Acetaminophen 5/325 mg Tab PO PRN (12:35)
[2017-05-01] MEDS: Azithromycin 500MG/NS 250ml 500 MG/250 ML BAG IVPB SCH (12:48)
--- NOTE | 2017-05-01 13:16 | PN ---
DATE: 05/01/2017 REASON FOR CONSULTATION: Followup [id number] myocardial infarction, coronary artery disease. SUBJECTIVE: The patient denies any chest pain, shortness of breath or any palpitation. PHYSICAL EXAMINATION: VITAL SIGNS: As follows, temperature afebrile, heart rate 95, blood pressure 132/83. HEENT: PERRLA. Extraocular muscles intact. NECK: Supple. No carotid bruits or thyromegaly. CHEST: Clear to auscultation. HEART: S1 and S2, regular. ABDOMEN: Soft. EXTREMITIES: Clubbing and cyanosis negative. LABORATORY DATA: WBC 15.5, hemoglobin 10.3, hematocrit 32.1, platelet count . Sodium 140, potassium 3.7, chloride 107, carbon dioxide 29, anion gap of 10, BUN 17, creatinine 0.5. Troponin 0.46, 0.37. TSH 0.2. Triglyceride 111, cholesterol 175, LDL 112, HDL 40. EKG shows normal sinus, poor R-wave progression, left axis deviation. IMPRESSION: Drm-ZB-htmainl myocardial infarction, coronary artery disease, history of unstable angina in the past, stress test fixed defect recently, no change from before, lung mass, chronic obstructive pulmonary disease, dyspnea. RECOMMENDATIONS: Discussed with Dr. Razo. The patient is cardiac catheterization, but the patient had lung mass. We will await until the biopsy is done because once we do the cardiac catheterization and patient is stented, then patient needs to continue aspirin, Plavix and cannot be held for biopsy, so we decided to do the biopsy today or tomorrow and cardiac catheterization Monday or . Discussed with the patient. We will discuss with you. In the interim, treat unstable angina with Lovenox, aspirin, beta-reggie as tolerated. Yesterday, beta-reggie was not given because of expiratory wheezing. We will try the 12.5 and see the response. If the patient still wheezes, then we will hold it off, otherwise continue 12.5. We will follow with you. Followup CPK, troponin in the morning. Thank you Dr. Proctor for providing me the opportunity in taking care of patient, Valeria Mayen. Discussed with . . We will follow with you. We will get PT/INR for possible biopsy. We will supplement potassium. Mara Norman MD [facility] # [id number]
[2017-05-01 13:23] LABS: INR 1.27 (0.93-1.08)
--- NOTE | 2017-05-01 13:59 | CT ---
PROCEDURE: CT guided left lower lobe lung biopsy. HISTORY: Smoker. 5 cm left hilar mass. Evaluate for malignancy PHYSICIAN(S): Roderick Alex MD. TECHNIQUE: The relative risks and indications of the procedure were explained to the patient and consent obtained. The patient was placed prone on the CT scanner and preliminary images through the lung bases obtained. Conscious sedation and monitoring were provided throughout the procedure by a nurse. There is a 5 cm infiltrative left hilar mass present.. A left posterior approach was selected and the area prepped and draped in the usual sterile fashion. 1% Xylocaine was used to anesthetize the skin and soft tissues. A 19 gauge guiding needle was advanced into the 5 cm left hilar mass. Its position was confirmed with CT. Using coaxial technique, multiple core biopsies were obtained. The postprocedure images show no evidence of significant hemorrhage or large pneumothorax. Therapy be a tiny left pneumothorax present. The patient is asymptomatic and her vital signs are stable. Follow-up chest x-ray has been ordered. IMPRESSION: 1. CT-guided left lung biopsy as described above.
--- NOTE | 2017-05-01 14:06 | RAD ---
HISTORY: lt lung bx COMPARISON: 04/29/2017 FINDINGS: LUNGS: There is no evidence of post biopsy pneumothorax PLEURA: No significant pleural effusion identified, no pneumothorax apparent. CARDIOVASCULAR: Normal. OSSEOUS STRUCTURES: No significant abnormalities. VISUALIZED UPPER ABDOMEN: Normal. OTHER FINDINGS: None. IMPRESSION: No evidence of pneumothorax post biopsy
--- NOTE | 2017-05-01 16:22 | PN ---
DATE: SUBJECTIVE: The patient is 81 years old, seen and examined. She had CT-guided biopsy of the mass done this morning. No chest pain. No shortness of breath. She stated her cough is little better. PHYSICAL EXAMINATION: VITAL SIGNS: She is afebrile, pulse 108, respirations 19, and blood pressure is 146/72. LUNGS: Bilateral fair airflow. Occasional rhonchi in the left upper lung region. HEART: S1 and S2 audible. ABDOMEN: Soft, obese, and nontender. No rebound. No guarding. NEUROLOGIC: She is awake, alert, oriented. Communicative. LABORATORY DATA: WBC 15.5, hemoglobin 10.3, hematocrit 32.1, and platelets 351. Sodium 142, potassium 3.7, chloride 107, CO2 29, BUN 17, and creatinine 0.5. Blood sugar of 186. ASSESSMENT: 1. Chronic cough and bronchitis. 2. Left upper lung mass versus infiltrate. 3. Hypertension. 4. Hyperlipidemia. 5. Non-ST elevation myocardial infarction. PLAN: The patient had CT guided biopsy done. We will follow up the results. Continue nebulizer treatment. Currently, she is on Lovenox q. 12 hours, we will continue that. Analgesic as needed. She is on small dose of steroid, we will continue that and we will follow up this patient in a.m. Demarcus Proctor MD
[2017-05-02] MEDS: Albuterol-Ipratrop 3 mg / 0.5 (3 ml) UD IH SCH ×4 (01:28→20:50)
[2017-05-02] MEDS: Enoxaparin 80 mg Syringe SC SCH ×2 (05:39→17:14)
[2017-05-02] MEDS: Pantoprazole 40 mg EC Tab PO SCH (05:39)
[2017-05-02 06:49] LABS: INR 1.21 (0.93-1.08)
[2017-05-02 07:00] LABS: GRAN # 13.48 (1.4-6.5); GRAN % 90.4 % (50.0-68.0); HEMATOCRIT 33.2 % (36.0-48.0); LYMPH # 0.7 (1.2-3.4); LYMPH % 4.4 % (22.0-35.0); MEAN CORPUSCULAR HEMOGLOBIN 27.6 pg (25.0-35.0); MONO # 0.8 (0.1-0.6); MONO % 5.2 % (1.0-6.0); RED CELL DISTRIBUTION WIDTH 16.1 % (11.5-14.5); WHITE BLOOD COUNT 14.9 10^3/ul (4.5-11.0)
[2017-05-02] MEDS: Budesonide 0.5 mg/2 ml Inhal Susp UD IH SCH ×2 (07:28→20:50)
--- NOTE | 2017-05-02 07:33 | PN ---
SUBJECTIVE: The patient appears comfortable this morning. She is not short of breath at rest. PHYSICAL EXAMINATION: VITAL SIGNS: Temperature is 98.1, pulse 85, respirations 18/20, blood pressure 131/78. Oxygen saturation on nasal cannula ranges between 95% to 98%. HEENT: Normocephalic, atraumatic. NECK: No JVD. CARDIOVASCULAR: Systolic ejection murmur at the lower left sternal border. No S3 gallop. LUNGS: Decreased breath sounds at the bases. Less rhonchi. No wheezing this morning. EXTREMITIES: Mild edema. No cyanosis, no clubbing. Calves are nontender to palpation. GI: Abdomen is soft, nontender and nondistended. Bowel sounds are positive. SKIN: No acute rash. NEUROLOGIC: Limited at the present time. IMPRESSION: 1. Mediastinal/lung mass. 2. Acute myocardial infarction. 3. Chronic obstructive pulmonary disease. 4. Recurrent bronchitis. 5. Rule out pneumonia. 6. Mild anemia. PLAN: The patient appears comfortable this morning. She is not short of breath at rest. She does state to feeling much better overall. On physical exam, her bronchospasm is significantly less. In addition, there is no significant alveolar-arterial gradient. I will continue with the current nebulizer treatments and low-dose intravenous steroids for now. The patient remains on antibiotic therapy. There are no temperatures noted. The procalcitonin done is negative. However, I would still continue with the antibiotic therapy (short course) for now. The patient is status post CAT scan-guided lung biopsy by Dr. Roderick Alex. His input is noted. I did review the CAT scan of the chest, again with Dr. Murphy (radiology) at length yesterday. The mediastinal/lung mass is certainly less dense (by hounsfield units) compared to the typical lung cancers. Again, we are awaiting the pathology results. I would continue with the treatment for acute myocardial infarction as per cardiology. Input by Dr. Norman is noted. The patient is for cardiac catheterization in the near future. Clinical status of the patient is certainly improved-while in the hospital. However, again, the future status/prognosis for this patient does remain guarded. I did discuss the above with Dr. Proctor yesterday. I will also discuss the above with her today. Donato Razo MD [facility] # [id number] DARIEN
[2017-05-02 07:48] LABS: ALB/GLOB RATIO 1.1 (1.1-1.8); ALKALINE PHOSPHATASE 121 U/L (38-126); ALT/SGPT 57 U/L (7-56); AST/SGOT 43 U/L (14-36); BILIRUBIN,TOTAL 0.5 mg/dL (0.2-1.3); BLOOD UREA NITROGEN 15 mg/dL (7-21); CALCIUM 9.2 mg/dL (8.4-10.5); CARBON DIOXIDE 28 mmol/L (21-33); CHLORIDE 105 mmol/L (98-107); GFR AFRICAN-AMERICAN > 60; GLUCOSE,RANDOM 158 mg/dL (70-110); MAGNESIUM 2.1 mg/dL (1.7-2.2); PHOSPHOROUS 2.7 mg/dL (2.5-4.5); POTASSIUM 4.1 mmol/L (3.6-5.0); SODIUM 139 mmol/L (132-148); TOTAL PROTEIN 6.1 g/dL (5.8-8.3)
--- NOTE | 2017-05-02 09:41 | IP.NPCORE ---
Acute TX Core Measure PNote - LVF prior to this hospilization,if known LVF prior to this hospilization: Definitive Plan/Date - Source Source: Echo - Medications Aspirin Name/Dose/Frequency:: 81mg Beta Christina prescribed: Name/dose/frequency: metoprolol 12.5 bid Contraindications to SHANNA/ARB:: History of intolerance Lipid Lowering Agent: Name/Dose/Frequency: lipitor 10 LDL within normal limits (<=100): No
[2017-05-02] MEDS: guaiFENesin 200 mg/10 ml Syrup UD PO PRN ×2 (10:49→17:14)
[2017-05-02] MEDS: MethylPREDNISolone 40 mg Vial IV SCH ×2 (10:49→22:08)
[2017-05-02] MEDS: cefTRIAXone 1 gm 1 GM/100 ML BAG IVPB SCH (10:50)
--- NOTE | 2017-05-02 11:24 | RAD ---
HISTORY: lt lung bx. FU small left PTX COMPARISON: Portable chest 05/01/2017. TECHNIQUE: Chest PA and lateral FINDINGS: LUNGS: No active pulmonary disease. PLEURA: No significant pleural effusion identified. No pneumothorax apparent. CARDIOVASCULAR: Cardiomegaly appears stable. There is no pulmonary vascular derangement appreciate. Prominent aortic ectasis appreciated this patient kyphotic thoracic spine deformity evident. OSSEOUS STRUCTURES: No significant abnormalities. VISUALIZED UPPER ABDOMEN: Normal. OTHER FINDINGS: None. IMPRESSION: Stable cardiomegaly. No infiltrate bilaterally or pleural effusion.
[2017-05-02] MEDS: Azithromycin 500MG/NS 250ml 500 MG/250 ML BAG IVPB SCH (11:52)
--- NOTE | 2017-05-02 13:54 | PN ---
DATE: 05/02/2017 REASON FOR CONSULTATION AND FOLLOWUP: Non-ST segment myocardial infarction, coronary artery disease, mediastinal lung mass, status post CT-guided biopsy. SUBJECTIVE: The patient denies any chest pain, completely chest pain free, mild shortness of breath, and history of COPD. OBJECTIVE: GENERAL: Lying flat in the bed, is status post CT biopsy on the left side of the chest from the back. VITAL SIGNS: As follows: Temperature afebrile, heart rate 85, and blood pressure 131/78. HEENT: PERRLA. Extraocular muscles intact. NECK: Supple. No carotid bruits or thyromegaly. CHEST: Clear to auscultation. Dressing noted on the back of the chest, left side from CT-guided biopsy. ABDOMEN: Soft. EXTREMITIES: Clubbing and cyanosis negative. LABORATORY DATA: Blood workup as follows: WBC 14.9, hemoglobin 10.7, hematocrit 33.2, and platelet count 414. Chemistry show sodium , potassium 4.0, chloride 105, carbon dioxide 28, anion gap of 10, BUN 15, and creatinine 0.5. IMPRESSION: Non-ST segment myocardial infarction, coronary artery disease, chronic obstructive pulmonary disease, and lung mass, mediastinal, status post CT-guided biopsy. RECOMMENDATIONS: Discussed with the patient and discussed with Dr. Razo. Await for the biopsy result and possibly cardiac catheterization on . We will load with Plavix, if the biopsy remains negative. Biopsy also will determine the type of the stent used, bare metal versus drug coated stent for the duration of dual antiplatelet therapy. We will follow. We will keep n.p.o. after Monday midnight for possible cardiac cauterization on . Discussed with the patient and we will follow with you. Interim continue aspirin, atorvastatin beta-reggie, the patient is tolerating. No wheezing sensation, we will increase to 25 b.i.d. and continue enoxaparin. We will follow with you. Thank you Dr. Proctor for providing us the opportunity in taking care of the patient, Valeria Mayen. Mara Norman MD [facility] # [id number]
--- NOTE | 2017-05-02 19:10 | PN ---
DATE: SUBJECTIVE: The patient is 81 years old, seen and examined, sitting in chair, seems to be comfortable, still has cough and congestion, but better than before. No chest pain. No nausea, vomiting, or diarrhea. PHYSICAL EXAMINATION: VITAL SIGNS: She is afebrile, pulse 96, respirations 18, and blood pressure 136/74. LUNGS: Bilateral fair airflow, feels occasional soft crackle in the left upper lung bases. HEART: S1 and S2 audible. ABDOMEN: Soft, obese, nontender. No rebound, no guarding. NEUROLOGIC: She is awake, alert, oriented, and communicative. LABORATORY DATA: WBC is 14.9, hemoglobin 10.3, hematocrit 33.2, and platelets 415. Chemistry: Sodium 139, potassium 4.1, chloride 105, CO2 is 28, BUN 15, creatinine 0.5, blood sugar of 158. AST 43, ALT 57. Urine shows E. coli sensitive to Rocephin. Blood cultures are negative. Biopsy report is pending. ASSESSMENT: 1. Left upper lung mass. 2. Mediastinal mass. 3. Non ST-elevation myocardial infarction. 4. History of chronic obstructive pulmonary disease, status post CT-guided lung biopsy. Biopsy is pending. PLAN: Currently, the patient is on nebulizer treatment. She is on Lovenox, statins, and analgesic as needed. We will give her Protonix. She is on Rocephin and Zithromax. The patient is clinically stable. Telemetry can be discontinued. Probably plan is to do a stress test. Dr. Norman's input noted and appreciated. Plan for cardiac cath on . We will try to follow up biopsy report. We will contact Dr. Cunningham in a.m. Demarcus Proctor MD
[2017-05-03] MEDS: Albuterol-Ipratrop 3 mg / 0.5 (3 ml) UD IH SCH ×4 (02:55→21:00)
[2017-05-03] MEDS: Enoxaparin 80 mg Syringe SC SCH (06:21)
[2017-05-03] MEDS: Pantoprazole 40 mg EC Tab PO SCH (06:21)
--- NOTE | 2017-05-03 08:16 | PN ---
DATE: 05/03/2017 PULMONARY PROGRESS NOTE: SUBJECTIVE: The patient appears comfortable this morning. She is not short of breath at rest. PHYSICAL EXAMINATION: VITAL SIGNS: Temperature is 99.0, pulse is 83, respirations are 18, and blood pressure is 127/76. Oxygen saturation on nasal cannula is 94% to 95%. HEENT: Normocephalic and atraumatic. NECK: No JVD. CARDIOVASCULAR: Systolic ejection murmur at the lower left sternal border. No S3 gallop. LUNGS: Decreased breath sounds at the bases. Much less/minimal rhonchi. No wheezing. EXTREMITIES: Mild edema. No cyanosis and no clubbing. Calves are nontender to palpation. GASTROINTESTINAL: Abdomen is soft, nontender and nondistended. Bowel sounds are positive. SKIN: No acute rash. NEUROLOGIC: Exam limited at the present time. IMPRESSION 1. Mediastinal/lung mass. 2. Acute myocardial infarction. 3. Chronic obstructive pulmonary disease. 4. Recurrent bronchitis. 5. Rule out pneumonia. 6. Mild anemia. PLAN: The patient appears comfortable this morning. She is not short of breath at rest. She is coughing much less. She does state to feeling much better overall. I also discussed the case with the night nurse at length. The night nurse stated that the patient had a very good night, and has significantly less cough. I will continue with the current nebulizer treatments and decrease the intravenous steroids this morning. The patient remains on antibiotic therapy. I did have a long talk with the patient in reference to her case this morning. She is status post CAT scan guided lung biopsy. We are awaiting the pathology results. As discussed yesterday, the mediastinal/lung mass has a very atypical appearance on CAT scan - with a density in hounsfield units being much less than the usual cancer. Therefore,If the biopsy results are negative, I would certainly consider proceeding with a PET scan (so we can clearly define whether this is a cancer or not). The patient is in full agreement with this plan. Cardiology evaluation (Dr. Norman) is noted. The patient is for probable cardiac catheterization tomorrow morning. Her clinical status is certainly much improved--- while in the hospital. However, again, the future status/prognosis for this patient does remain guarded. I will discuss the above with Dr.s Proctor and Dede later this morning. Donato Razo MD [facility] # [id number] DARIEN
[2017-05-03] MEDS: Budesonide 0.5 mg/2 ml Inhal Susp UD IH SCH ×2 (08:25→21:00)
[2017-05-03] MEDS: cefTRIAXone 1 gm 1 GM/100 ML BAG IVPB SCH (09:33)
[2017-05-03] MEDS: MethylPREDNISolone 40 mg Vial IVP SCH ×2 (09:33→22:40)
[2017-05-03] MEDS: Azithromycin 500MG/NS 250ml 500 MG/250 ML BAG IVPB SCH (10:36)
--- NOTE | 2017-05-03 10:41 | PN ---
DATE: 05/02/2017 REASON FOR THE CONSULTATION: Followup [id number]-ceialzg myocardial infarction, unstable angina with shortness of breath, mediastinal mass, status post CT-guided biopsy. SUBJECTIVE: The patient denies any chest pain, shortness of breath, or any palpitation. Feels better. OBJECTIVE: GENERAL: Not in apparent distress. Lying flat in the bed. VITAL SIGNS: As follows, temperature afebrile, heart rate 83, blood pressure 127/76. HEENT: PERRLA. Extraocular muscles intact. NECK: Supple. No carotid bruit or thyromegaly. CHEST: Clear to auscultation. HEART: S1 and S2 regular. ABDOMEN: Soft. EXTREMITIES: Clubbing and cyanosis negative. LABORATORY DATA: Blood workup as follows: WBC 14.9, hemoglobin 10.3, hematocrit 33.2, and platelet count 414. Chemistry shows sodium 139, potassium 4.1, chloride 105, carbon dioxide 28, anion gap of 10, BUN 15, and creatinine 0.5. IMPRESSION: Non-ST segment myocardial infarction, coronary artery disease, unstable angina, history of mediastinal mass, chronic obstructive pulmonary disease, biopsy negative for lung cancer, also CT-guided biopsy. Discussed with Dr. Razo this morning. Agreed to go for cardiac catheterization tomorrow because is concerned about it and bronchoscopy because of the recent non-ST segment myocardial infarction. Also, we will do the cardiac catheterization if needed, we will put bare-metal stent, so later on the patient can have the bronchoscopy or if PET scan shows positive, then interruption of dual-antiplatelet therapy can be done for more biopsy needed. Also, we will put the bare-metal stent, also dual antiplatelet therapy can be interrupted after 4 weeks for workup of the mass. Discussed with the patient and scheduled for cardiac catheterization tomorrow. We will load with aspirin, Plavix and keep n.p.o. after midnight for cardiac catheterization tomorrow. Discussed with the patient. We will discuss with Dr. Proctor as well. Continue baby aspirin. Continue atorvastatin. Continue low-dose beta-reggie. The patient is tolerating. We will hold Lovenox after this morning dose. Thank you Dr. Proctor for providing us the opportunity in taking care of the patient, Valeria Mayen. Mara Norman MD
--- NOTE | 2017-05-03 16:05 | PN ---
SUBJECTIVE: The patient is 81 years old, seen and examined, sitting in chair, had coughing bouts yesterday, brought lot of mucus. Still feels short of breath. No nausea or vomiting, no diarrhea. PHYSICAL EXAMINATION: VITAL SIGNS: She is afebrile, pulse 77, respirations 19, blood pressure 132/72. LUNGS: Bilateral fair airflow. No rhonchi or crackle. HEART: S1, S2 audible. ABDOMEN: Soft, nontender. No rebound, no guarding. NEUROLOGIC: She is awake, alert, oriented, communicative, ambulatory. LABORATORY DATA: Urinalysis shows E. coli. Pathology report, I discussed with Dr. Cunningham. According to her, it is poorly differentiated adenocarcinoma, origin is not known yet, circumstances are sent out, waiting for results. ASSESSMENT: 1. 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 2. Asthmatic bronchitis. 3. Hypertension. 4. Non-ST elevation myocardial infarction. 5. Morbid obesity. 6. Bilateral knee osteoarthritis. PLAN: Patient is planned to have cardiac cath done tomorrow. I will discuss with Dr. Norman. We will make plan according to his recommendations. For now, we will continue antibiotic and nebulizer treatment. Demarcus Proctor MD
[2017-05-03] MEDS: guaiFENesin 200 mg/10 ml Syrup UD PO PRN (20:13)
[2017-05-03] MEDS: Oxycodone/Acetaminophen 5/325 mg Tab PO PRN (22:44)
[2017-05-04] MEDS: Albuterol-Ipratrop 3 mg / 0.5 (3 ml) UD IH SCH ×4 (03:15→19:54)
[2017-05-04] MEDS: Pantoprazole 40 mg EC Tab PO SCH (06:30)
[2017-05-04] MEDS ORDERED: Phenylephrine 10 mg/ml Inj ONE (06:33)
[2017-05-04] MEDS ORDERED: Lidocaine 2% Inj (20ml) ONE (06:33)
[2017-05-04] MEDS ORDERED: Midazolam 2 MG/2 ML VIAL ONE (06:34)
[2017-05-04] MEDS ORDERED: Iodixanol 320 MG/ML 200 ML BOTTLE IV ONE (06:35)
[2017-05-04] MEDS ORDERED: Iodixanol 320 MG/ML 100 ML BOTTLE IV ONE (06:35)
[2017-05-04] MEDS ORDERED: Iohexol 350mgl/ml 50 ML ONE (06:35)
[2017-05-04] MEDS ORDERED: Nitroglycerin 50mg in D5W 50 MG/250 ML BOTTLE IV ONE (06:35)
[2017-05-04 06:58] LABS: BASO # 0.01 K/mm3 (0.0-2.0); BASO % 0.1 % (0.0-3.0); GRAN # 16.53 (1.4-6.5); GRAN % 85.9 % (50.0-68.0); HEMATOCRIT 38.9 % (36.0-48.0); LYMPH # 1.6 (1.2-3.4); LYMPH % 8.5 % (22.0-35.0); MEAN CELL VOLUME 88.8 fl (80.0-105.0); MEAN CORPUSCULAR HEMOGLOBIN 27.6 pg (25.0-35.0); MEAN CORPUSCULAR HGB CONC 31.1 g/dl (31.0-37.0); MONO # 1.1 (0.1-0.6); MONO % 5.5 % (1.0-6.0); WHITE BLOOD COUNT 19.2 10^3/ul (4.5-11.0)
--- NOTE | 2017-05-04 07:21 | PN ---
PULMONARY NOTE DATE: 05/04/2017 SUBJECTIVE: The patient appears comfortable at rest. She is not short of breath. PHYSICAL EXAMINATION: VITAL SIGNS: Temperature is 98.3, pulse on the monitor is 88, respiratory rate 18, blood pressure 148/91. Oxygen saturation on nasal cannula is between 94-96%. HEENT: Normocephalic, atraumatic. No JVD. Cardiovascular: Systolic ejection murmur at the lower left sternal border. No S3 gallop. LUNGS: Decreased breath sounds at the bases. Minimal/less rhonchi. No wheezing. EXTREMITIES: Mild edema. No cyanosis, no clubbing. Calves are nontender to palpation. GI: Abdomen is soft, nontender and nondistended. Bowel sounds are positive. SKIN: No acute rash. NEUROLOGIC: Exam limited at the present time. PERTINENT LABORATORY DATA: Preliminary pathology results are back on the lung biopsy. The preliminary results are consistent with adenocarcinoma of the lung. IMPRESSION: 1. Probable adenocarcinoma of the lung. 2. Acute myocardial infarction. 3. Chronic obstructive pulmonary disease. 4. Recurrent bronchitis. 5. Rule out pneumonia. 6. Mild anemia. PLAN: The patient appears comfortable this morning. She is not short of breath at rest. She is coughing much less. She does state to feeling much better overall. On physical exam, her bronchospasm is certainly less. In addition, there is no significant alveolar-arterial gradient. I will continue the current nebulizer treatments and low-dose intravenous steroids (decreased yesterday) for now. As above, the preliminary pathology results are consistent with adenocarcinoma of the lung. The patient is aware of the diagnosis. I did sit and talk with the patient for a long time this morning. I will also meet with the daughter later this morning. The patient is for cardiac catheterization later this morning, so the family will be in the hospital. Again, I will meet with them hopefully in the next hour or so. Clinical status of the patient is certainly improved - compared to the initial presentation. However, unfortunately, the future status/prognosis for this patient remains very guarded at best. I did discuss the case with Dr. Proctor at length yesterday. I will also discuss the case with her again this morning . Donato Karpman, MD DARIEN
[2017-05-04 07:25] LABS: ALB/GLOB RATIO 1.1 (1.1-1.8); ALKALINE PHOSPHATASE 142 U/L (38-126); ALT/SGPT 73 U/L (7-56); AST/SGOT 31 U/L (14-36); BILIRUBIN,TOTAL 0.8 mg/dL (0.2-1.3); BLOOD UREA NITROGEN 15 mg/dL (7-21); CALCIUM 9.4 mg/dL (8.4-10.5); CARBON DIOXIDE 32 mmol/L (21-33); CHLORIDE 103 mmol/L (98-107); GFR AFRICAN-AMERICAN > 60; GLUCOSE,RANDOM 152 mg/dL (70-110); MAGNESIUM 2.1 mg/dL (1.7-2.2); PHOSPHOROUS 3.6 mg/dL (2.5-4.5); POTASSIUM 4.2 mmol/L (3.6-5.0); SODIUM 140 mmol/L (132-148); TOTAL PROTEIN 6.7 g/dL (5.8-8.3)
[2017-05-04] MEDS ORDERED: Bacitracin 500 Units/gm Oint Foilpak UD TOP ONE (08:54)
[2017-05-04] MEDS ORDERED: Sodium Chloride 0.9% 1,000 ML IV SCH (09:00)
--- NOTE | 2017-05-04 09:06 | PN ---
DATE: 05/03/2017 Addendum to the initial progress note dictated yesterday. REASON FOR ADDENDUM: The patient's biopsy officially came as poorly differentiated adenocarcinoma. Yesterday, in my dictation, I put it, it is possible benign, but it was a preliminary report, official report came yesterday that poorly differentiated adenocarcinoma. In view of above, we will do the cardiac catheterization and possible angioplasty today. Further discussed with Dr. Razo, discussed with Dr. Proctor further recommendation of the cardiac catheterization, possibly tumor appears to be nondistractible, so once angioplasty is done, then the line of treatment chemo versus radiation would be determined by the Hem/Onc. Mara Norman MD
[2017-05-04] MEDS: Budesonide 0.5 mg/2 ml Inhal Susp UD IH SCH ×2 (09:23→19:54)
[2017-05-04] MEDS: cefTRIAXone 1 gm 1 GM/100 ML BAG IVPB SCH (09:45)
[2017-05-04] MEDS: MethylPREDNISolone 40 mg Vial IVP SCH ×2 (09:53→22:29)
[2017-05-04] MEDS: guaiFENesin 200 mg/10 ml Syrup UD PO PRN ×2 (09:54→16:34)
--- NOTE | 2017-05-04 10:14 | PN ---
DATE: 05/04/2017 REASON FOR CONSULTATION AND FOLLOWUP: Gby-DV-easaykk myocardial infarction, unstable angina, mediastinal mass, CT-guided biopsy, and possible poor differentiated adenocarcinoma. SUBJECTIVE: The patient is status post cardiac catheterization. She denies any chest pain, shortness of breath or any palpitation. OBJECTIVE/PHYSICAL EXAMINATION: As follows: GENERAL: Lying flat in the bed, not in apparent distress. VITAL SIGNS: Temperature is afebrile, heart rate is 96 and blood pressure is 142/91. HEENT: PERRLA. Extraocular muscles are intact. NECK: Supple. No carotid bruit or thyromegaly. CHEST: Clear to auscultation. HEART: S1 and S2 regular. ABDOMEN: Soft. EXTREMITIES: Clubbing and cyanosis negative. LABORATORY DATA: Blood workup as follows: WBC of 19.2, hemoglobin of 12.2, hematocrit of 38.9 and platelet count of 540. Chemistry shows sodium of 140, potassium of 4.2, chloride of 103, carbon dioxide of 32, anion gap of 9, BUN of 15 and creatinine of 0.5. Total protein of 6.5, albumin of 3.5 and albumin-globulin ratio 1.1. IMPRESSION: Mediastinal mass, poorly differentiated adenocarcinoma of the lungs, non-ST segment myocardial infarction, coronary artery disease, history of stable angina, positive troponin, non-ST segment myocardial infarction status post cardiac catheterization this morning, left anterior descending mid totally occluded after getting a large diagonal branch, codominant system, right coronary artery, large without significant stenosis. I have tried to cross gentle but appears total chronic occlusion, very well collateralized from right coronary artery, medical treatment recommended. Preserved left ventricular function ejection fraction 55%. No gradient across aortic valve noted. Bronchitis, cough, obesity, and bilateral knee osteoarthritis. RECOMMENDATIONS: Discussed with Dr. Razo possible Hematology/Oncology evaluation for possible tumor directed therapy. Our recommendation after Hematology/Oncology evaluation, we will discontinue Plavix. Continue baby aspirin and continue beta-reggie as tolerated. Continue aspirin and continue atorvastatin. We will follow with you. Thank you Dr. Proctor for providing us the opportunity in taking care of Valeria Mayen. Mara Norman MD
--- NOTE | 2017-05-04 10:23 | CP.PCM.CON ---
History of Present Illness - History of Present Illness History of Present Illness: Heme/Onc Consult Note for Dusty Patterson PGY2 Reason for consult: Lung mass This is an 81yo female with past medical history of HTN, dyslipidemia, NE and anxiety who was originally admitted to the hospital for cough and shortness of breath. I reviewed previous records as well as obtained history from the patient that reports that she was having chronic cough for several months with weight loss and fatigue. Patient was scheduled for outpatient chest CT but was not able to do it. She also was being seen by pulm. Upon admission, patient was found to have NSTEMI. She had a chest CT which showed a mass within the mediastinum that is. She had a biopsy of the mass 2 days ago with preliminary path showing poorly differentiated adenocarcinoma. She had a cardiac cath today without stent placement. As per Dr. Norman, he was unable to stent the LAD due to 100% occlusion that seems chronic in nature with good collateral circulation. Patient was also found to have UTI and pneumonia on admission as well. She is being empirically treated. I spoke with her today post cardiac cath. She reports feeling well. She denies chest pain, shortness of breath, nausea/ vomiting, diarrhea, numbness/tingling. She states she has pain in her chest only when she coughs which she has had for months. She does admit to recent weight loss and fatigue. Past medical history: HTN, dyslipidemia, NE, anxiety Past surgical history: Appendectomy, cholecystectomy, bilateral total knee replacement Home meds: As per MAR Allergies: NKDA Social history: former heavy smoker (2 packs per day x 40yrs), denies EtOH or drug use. Lives alone. Works with [employer] Review of Systems - Review of Systems All systems: reviewed and no additional remarkable complaints except Review of Systems: + cough, + chest pain when coughing + weight loss Past Patient History - Infectious Disease Hx of Infectious Diseases: None - Past Social History Smoking Status: Former Smoker Alcohol: None Drugs: Denies Home Situation {Lives}: Alone - CARDIAC Hx Cardiac Disorders: Yes (mi 30 yrs ago) Hx Hypertension: Yes - PULMONARY Hx Chronic Obstructive Pulmonary Disease (COPD): Yes - NEUROLOGICAL Hx Neurological Disorder: No - HEENT Hx HEENT Problems: Yes (eyeglasses) Hx Glaucoma: Yes - RENAL Hx Chronic Kidney Disease: No - ENDOCRINE/METABOLIC Hx Endocrine Disorders: No - HEMATOLOGICAL/ONCOLOGICAL Hx Blood Transfusions: No Hx Blood Transfusion Reaction: No (na) - INTEGUMENTARY Hx Dermatological Problems: No - MUSCULOSKELETAL/RHEUMATOLOGICAL Hx Musculoskeletal Disorders: Yes Hx Falls: No Hx Spinal Stenosis: Yes - GASTROINTESTINAL Hx Gastroesophageal Reflux: Yes - GENITOURINARY/GYNECOLOGICAL Hx Genitourinary Disorders: No - PSYCHIATRIC Hx Psychophysiologic Disorder: No Hx Substance Use: No - SURGICAL HISTORY Hx Surgeries: Yes - ANESTHESIA Hx Anesthesia Reactions: No Hx Malignant Hyperthermia: No Meds Allergies/Adverse Reactions: Allergies Allergy/AdvReac Type Severity Reaction Status Date / Time No Known Allergies Allergy Verified 04/29/17 14:25 - Medications Medications: Current Medications Acetaminophen (Tylenol 325mg Tab) 650 mg PO Q6H PRN PRN Reason: Fever >100.4 F Albuterol/Ipratropium (Duoneb 3 Mg/0.5 Mg (3 Ml) Ud) 3 ml IH Q2H PRN PRN Reason: Shortness of Breath Albuterol/Ipratropium (Duoneb 3 Mg/0.5 Mg (3 Ml) Ud) 3 ml IH [id number] [facility] Last Admin: 05/04/17 09:22 Dose: Not Given Aspirin (Ecotrin) 81 mg PO DAILY [facility] Last Admin: 05/04/17 06:30 Dose: 81 mg Atorvastatin Calcium (Lipitor) 10 mg PO DIN [facility] Last Admin: 05/03/17 17:32 Dose: 10 mg Budesonide (Pulmicort Respules) 0.5 mg IH [id number] [facility] Last Admin: 05/04/17 09:23 Dose: Not Given Furosemide (Lasix) 40 mg IV ONCE ONE Stop: 05/04/17 14:01 Guaifenesin (Robitussin) 200 mg PO Q8H PRN PRN Reason: Cough and congestion Last Admin: 05/04/17 09:54 Dose: 200 mg Ceftriaxone Sodium (Rocephin 1 Gram Ivpb) 1 gm in 100 mls @ 100 mls/hr IVPB DAILY [facility] PRN Reason: Protocol Last Admin: 05/04/17 09:45 Dose: 100 mls/hr Azithromycin (Zithromax 500mg In Ns) 500 mg in 250 mls @ 167 mls/hr IVPB DAILY [facility] PRN Reason: Protocol Last Admin: 05/03/17 10:36 Dose: 167 mls/hr Sodium Chloride (Sodium Chloride 0.9%) 1,000 mls @ 100 mls/hr IV .Q10H [facility] Stop: 05/04/17 14:00 Last Admin: 05/04/17 09:47 Dose: 100 mls/hr Methylprednisolone (Solu-Medrol) 20 mg IVP Q12 [facility] Last Admin: 05/04/17 09:53 Dose: 20 mg Metoprolol Tartrate (Lopressor) 25 mg PO BID [facility] Last Admin: 05/04/17 06:30 Dose: 25 mg Ondansetron HCl (Zofran Inj) 4 mg IVP Q6H PRN PRN Reason: Nausea/Vomiting Oxycodone/Acetaminophen (Percocet 5/325 Mg Tab) 1 tab PO Q4H PRN PRN Reason: Pain, moderate (4-7) Stop: 05/04/17 11:27 Last Admin: 05/03/17 22:44 Dose: 1 tab Pantoprazole Sodium (Protonix Ec Tab) 40 mg PO 0600 [facility] Last Admin: 05/04/17 06:30 Dose: 40 mg Physical Exam - Constitutional Appears: No Acute Distress - Head Exam Head Exam: ATRAUMATIC, NORMAL INSPECTION, NORMOCEPHALIC - Eye Exam Eye Exam: Normal appearance, PERRL Pupil Exam: NORMAL ACCOMODATION, PERRL - ENT Exam ENT Exam: Mucous Membranes Moist - Respiratory Exam Respiratory Exam: Clear to Auscultation Bilateral, NORMAL BREATHING PATTERN. absent: Rales, Rhonchi - Cardiovascular Exam Cardiovascular Exam: REGULAR RHYTHM, +S1, +S2. absent: Gallop, Rubs, Systolic Murmur - Extremities Exam Extremities exam: Positive for: normal inspection. Negative for: calf tenderness, pedal edema - Neurological Exam Neurological exam: Alert, CN II-XII Intact, Oriented x3 - Psychiatric Exam Psychiatric exam: Normal Affect, Normal Mood - Skin Skin Exam: Dry, Warm Results - Vital Signs Recent Vital Signs: Last Vital Signs Temp 98.3 F 05/04/17 06:00 Pulse 96 H 05/04/17 06:30 Resp 20 05/04/17 06:00 BP 148/91 H 05/04/17 06:30 Pulse Ox 94 L 05/04/17 06:00 - Labs Result Diagrams: 05/04/17 06:00 05/04/17 06:00 Labs: Laboratory Results - last 24 hr 05/04/17 05/04/17 06:00 06:00 WBC 19.2 H D RBC 4.38 Hgb 12.1 Hct 38.9 MCV 88.8 MCH 27.6 MCHC 31.1 RDW 16.0 H Plt Count 540 H MPV 9.0 Gran % 85.9 H Lymph % (Auto) 8.5 L [place] % (Auto) 5.5 Eos % (Auto) 0.0 L Baso % (Auto) 0.1 Gran # 16.53 H Lymph # 1.6 [place] # 1.1 H Eos # 0.0 Baso # 0.01 Sodium 140 Potassium 4.2 Chloride 103 Carbon Dioxide 32 Anion Gap 9 L BUN 15 Creatinine 0.5 L Est GFR ( Amer) > 60 Est GFR (Non-Af Amer) > 60 Random Glucose 152 H Calcium 9.4 Phosphorus 3.6 Magnesium 2.1 Total Bilirubin 0.8 AST 31 ALT 73 H Alkaline Phosphatase 142 H Total Protein 6.7 Albumin 3.5 Globulin 3.2 Albumin/Globulin Ratio 1.1 Assessment & Plan - Assessment and Plan (Free Text) Assessment: This is an 81yo female with past medical history of HTN, dyslipidemia, NE and anxiety who was admitted for: 1. NSTEMI s/p cardiac cath without stents. 2. Lung Mass- seen on CT chest s/p lung biopsy (preliminary path showed poorly differentiated adenocarcinoma) 3. UTI- positive for E.coli 4. Pneumonia - Seen on CXR 5. COPD Plan: - Patient most likely stage IIIb lung cancer - Will obtain genetic testing on the pathology specimen to help determine treatment options - Will obtain CT abd/pelvis with PO and IV contrast abd with liver protocol - 17% of patient's have renal cell carcinoma - Will obtain head CT with contrast since pt's mass is close to major blood vessel she has risk for brain metastasis - Will consult Palliative for advance directive - Continue present management as per primary team, cardiology and pulm Case seen, discussed and reviewed with Dr. Jain. Dusty Mendoza PGY2 - Date & Time Date: 05/04/17 Time: 10:29
[2017-05-04] MEDS ORDERED: Barium Sulfate Susp 2.1% w/v, 2.0% w/w 450 mL Bottle PO ONE (10:40)
[2017-05-04] MEDS ORDERED: Bacitracin 500 Units/gm Oint Foilpak UD ONE (11:42)
[2017-05-04] MEDS: Azithromycin 500MG/NS 250ml 500 MG/250 ML BAG IVPB SCH (11:48)
--- NOTE | 2017-05-04 14:48 | CT ---
PROCEDURE: CT HEAD WITH CONTRAST HISTORY: lung mass r/o mets COMPARISON: None available. TECHNIQUE: Axial computed tomography images were obtained through the head/brain with intravenous contrast. Contrast dose: 150 cc of Omni 350 Radiation dose: Total exam DLP = 681 mGy-cm. This CT exam was performed using one or more of the following dose reduction techniques: Automated exposure control, adjustment of the mA and/or kV according to patient size, and/or use of iterative reconstruction technique. FINDINGS: HEMORRHAGE: No intracranial hemorrhage. BRAIN: No mass, mass effect or edema. No abnormal intracranial enhancement. No atrophy or chronic microvascular ischemic changes. VENTRICLES: Unremarkable. No hydrocephalus. CALVARIUM: Unremarkable. PARANASAL SINUSES: Unremarkable as visualized. No significant inflammatory changes. MASTOID AIR CELLS: Unremarkable as visualized. No mastoid effusion. OTHER FINDINGS: None. IMPRESSION: No evidence of metastatic disease
--- NOTE | 2017-05-04 14:50 | CARD ---
APPROVED REPORT Procedure(s) performed: Left Heart Catheterization PTCA with Stenting of Mid LAD attempted ... unsuccessful, BRAKE ADJUSTER. HISTORY The patient is a 81 year-old female with a history of : previous TN (> 7 days), most recent EF: 63%. (EF Method: RADIONUCLIDE), chronic lung disease, tobacco history() : The patient is a former smoker , hypertension , dyslipidemia , Hx of Ch Stable angina for Many years was on optimal medical therapy, who admitted with cough, SOB, chest pain, NSTEMI, and Medistinal Mass which latter on turned out to be porly diffentiated Adenocarcinoma of lung.. INDICATION The indication(s) include : non-STEMI , chest pain, dyspnea. CASE TECHNIQUE The patient was brought urgently to the Cardiac Catheterization Laboratory in a fasting state and was prepped and draped in a sterile manner. The left wrist was infiltrated with 2% Lidocaine subcutaneous anesthesia. A 6 Fr Glidesheath (Radial) sheath was inserted into the left radial artery without difficulty. Coronary angiography was performed using coronary diagnostic catheters. The left coronary system was accessed and visualized with a Diagnostic ,6 Fr JL 4.5 catheter. The right coronary system was accessed and visualized with a Diagnostic ,6 Fr JR 4 catheter. The left ventricle was accessed and visualized with a 5 Fr Pigtail 145 (Angled) catheter. Left ventricular/Aortic Valve gradient assessed on pullback. Left ventriculogram was performed in NAILS projection. An aortogram of the ascending aorta was performed. Closure device was deployed with a Fr TR Band (Regular) without any complications. The patient tolerated the procedure well and there were no complications associated with the procedure. Vessel Analysis The patient's coronary anatomy is co-dominant. The left main coronary artery is a large size vessel with diffuse calcification noted throughout this vessel and without significant stenosis. The left main trifurcates to the left anterior descending, circumflex, and ramus. The left anterior descending artery is a medium size vessel with diffuse calcification noted throughout this vessel and with significant stenosis. There is a 100% stenosis in the mid segment. After giving a large Diagonal Br The first diagonal branch is a large size vessel with intimal irregularities and without significant stenosis. The circumflex artery is a large size vessel with diffuse calcification noted throughout this vessel and without significant stenosis. The first obtuse marginal branch is a small size vessel with diffuse calcification noted throughout this vessel and without significant stenosis. The left posterior descending artery is a large size vessel with diffuse calcification noted throughout this vessel and without significant stenosis. The ramus intermedius artery is a medium size vessel with diffuse calcification noted throughout this vessel and without significant stenosis. The right coronary artery is a large size vessel with diffuse calcification noted throughout this vessel and without significant stenosis. The right posterior descending artery is a medium size vessel with diffuse calcification noted throughout this vessel and without significant stenosis. The right posterolateral branch is a medium size vessel with diffuse calcification noted throughout this vessel and without significant stenosis. Left Ventricle The left ventricle is normal in size with normal contractility. There was no cardiomyopathy. The left ventricular ejection fraction is estimated to be 55-60%. The left ventricular end diastolic pressure is 16 mmHg. There was no gradient across the aortic valve upon pullback. PCI Technique Lesion Anticoagulation was achieved with Heparin. Percutaneous coronary intervention was performed on the mid left anterior descending artery segment. The lesion stenosis prior to intervention was 100% with CASSANDRA 0 flow. A 6 Fr XB 3.5 Guide Catheter was used to engage the ostium. A 0.014 x 182 cm Luge Interventional Guidewire was used to cross the lesion. BALLOON DILATION A Balloon catheter 2.0 x 10 mm Sprinter RX was inserted and inflated up to paige for seconds. Final angiography reveals 100 % stenosis with CASSANDRA 0 flow. COMMENTS Briefly tried, unable to cross BRAKE ADJUSTER. Conclusion One Vessel CAD Mid LAD 100% occluded . BRAKE ADJUSTER, Briefly tried to open but unable to cross. Dital LAD very well collateralized from RCA Preserved LV Fx. EF-55 -60%, EDP-16 mmof Hg. when compared from last cath dt. 12/22/2005 NO CHANGE IN CATH FILM NOTED. Recommendations Aggressive Medical TherapyCardiac Risk Reduction Program Weight Loss Reduction Program Nitrates, Statin, Baby ASA and Beta reggie as tolerated. Treatment for Lung Ca as per pulmonary/ heme Onc. CC; Drs. Proctor/ Dung.
--- NOTE | 2017-05-04 15:00 | CT ---
PROCEDURE: CT Abdomen with and without intravenous contrast HISTORY: lung mass r/o mets COMPARISON: None. TECHNIQUE: Axial images of the abdomen from lung bases to iliac crest with and without intravenous contrast enhancement. Coronal and sagittal reformats generated. Oral contrast also administered. Intravenous contrast Dose: 150 cc of Omni 350 Radiation dose: Total exam DLP = 2196 mGy-cm. This CT exam was performed using one or more of the following dose reduction techniques: Automated exposure control, adjustment of the mA and/or kV according to patient size, and/or use of iterative reconstruction technique. FINDINGS: LOWER THORAX: Unremarkable. LIVER: There are 2 separate lesions seen in the liver consistent with metastatic disease. These are seen on the portal venous phase series 5. On image 22 there is 24 x 52 mm mass in the lateral segment of the left lobe. There is an 18 mm lesion in the right lobe of the liver near the dome. This is seen on image 7 series 5. GALLBLADDER AND BILE DUCTS: Gallbladder removed PANCREAS: Unremarkable. No gross lesion or ductal dilatation. SPLEEN: There is a 2.4 cm mass in the spleen which measures 80 Hounsfield units in density postcontrast and 30 Hounsfield units precontrast. This is also suspicious for metastatic lesion ADRENALS: Unremarkable. No mass. KIDNEYS AND URETERS: Unremarkable. No hydronephrosis. No solid mass. VASCULATURE: Unremarkable. No aortic aneurysm. BOWEL: Unremarkable. No obstruction. No gross mural thickening. APPENDIX: Normal appendix. PERITONEUM: Unremarkable. No free fluid. No free air. LYMPH NODES: There is an enlarged lymph nodes seen near the celiac axis adjacent to the stomach. This measures 19 mm in diameter and is seen on image 18 series 5. Smaller adjacent nodes are seen BLADDER: Unremarkable. REPRODUCTIVE: Unremarkable. BONES: No acute fracture. OTHER FINDINGS: None. IMPRESSION: Solid lesions in the liver the largest in the left lobe. Solid lesion in the spleen. Findings suspicious for metastatic disease. Celiac region adenopathy.
[2017-05-04] MEDS ORDERED: Oxycodone/Acetaminophen 5/325 mg Tab PO ONE (16:08)
[2017-05-04] MEDS ORDERED: Oxycodone/Acetaminophen 5/325 mg Tab PO PRN (17:17)
--- NOTE | 2017-05-04 20:31 | PN ---
DATE: SUBJECTIVE: The patient is 81 years old, seen and examined, lying in bed, seems to be comfortable, not in any distress. Eating and tolerating. PHYSICAL EXAMINATION: VITAL SIGNS: She is afebrile. Pulse 83, respirations 16, blood pressure 130/70. LUNGS: Bilateral fair airflow. No rhonchi or crackle. HEART: S1, S2 audible. ABDOMEN: Soft, nontender, obese. No hepatosplenomegaly. NEUROLOGIC: The patient is awake, alert, oriented, and communicative. LABORATORY DATA: WBC is 19.2, hemoglobin 12, hematocrit 38, platelets of 540. Chemistry: Sodium 140, potassium 4.2, chloride 103., CO2 of 32, BUN 15, creatinine 0.5, blood sugar of 152. Urinalysis is unremarkable, but she had Escherichia coli in the urine. RADIOLOGIC DATA: She has liver CT and head CT done that shows solid lesion in the liver, the largest in the left lobe, solid lesion in the spleen, finding suspicious for metastatic disease. CT scan of the head, no evidence for metastatic disease. She has cardiac cath done that shows one vessel coronary artery disease, mid LAD 100% occluded. Distal LAD very well collateralized from RCA. She has preserved LV function. ASSESSMENT: 1. Cystic mediastinal mass and developing left pulmonary artery with metastases to the liver. 2. Chronic obstructive pulmonary disease. 3. Hypertension. 4. Coronary artery disease. PLAN: The patient is clinically stable, possible discharge in a.m. We will discontinue antibiotics in a.m. She will get PET scan as outpatient. Further plan will be made according to PET scan report. Probably, she is not a candidate of surgical resection and she will end up having chemotherapy. Demarcus Proctor MD
[2017-05-05] MEDS: Albuterol-Ipratrop 3 mg / 0.5 (3 ml) UD IH SCH ×4 (01:15→19:50)
[2017-05-05 06:17] LABS: BASO # 0.01 K/mm3 (0.0-2.0); GRAN # 19.13 (1.4-6.5); GRAN % 87.4 % (50.0-68.0); HEMATOCRIT 38.8 % (36.0-48.0); LYMPH # 1.5 (1.2-3.4); LYMPH % 6.9 % (22.0-35.0); MEAN CELL VOLUME 88.6 fl (80.0-105.0); MEAN CORPUSCULAR HEMOGLOBIN 27.4 pg (25.0-35.0); MEAN CORPUSCULAR HGB CONC 30.9 g/dl (31.0-37.0); MEAN PLATELET VOLUME 8.9 fl (7.0-11.0); MONO # 1.3 (0.1-0.6); MONO % 5.7 % (1.0-6.0); RED CELL DISTRIBUTION WIDTH 16.3 % (11.5-14.5); WHITE BLOOD COUNT 21.9 10^3/ul (4.5-11.0)
[2017-05-05 06:38] LABS: ALKALINE PHOSPHATASE 137 U/L (38-126); ALT/SGPT 67 U/L (7-56); AST/SGOT 27 U/L (14-36); BILIRUBIN,TOTAL 0.7 mg/dL (0.2-1.3); BLOOD UREA NITROGEN 20 mg/dL (7-21); CARBON DIOXIDE 31 mmol/L (21-33); CHLORIDE 101 mmol/L (95-110); GFR AFRICAN-AMERICAN > 60; GLUCOSE,RANDOM 175 mg/dL (70-110); MAGNESIUM 2.1 mg/dL (1.7-2.2); POTASSIUM 4.4 mmol/L (3.6-5.0); SODIUM 139 mmol/L (132-148); TOTAL PROTEIN 6.5 g/dL (5.8-8.3)
[2017-05-05] MEDS: Pantoprazole 40 mg EC Tab PO SCH (06:49)
[2017-05-05] MEDS: Budesonide 0.5 mg/2 ml Inhal Susp UD IH SCH ×2 (07:40→19:51)
--- NOTE | 2017-05-05 08:09 | PN ---
SUBJECTIVE: The patient appears comfortable this morning. She is not short of breath at rest. She is in better spirits this morning. PHYSICAL EXAMINATION: VITAL SIGNS: Temperature is 98.7, pulse 90, respirations 18, blood pressure 118/51. Oxygen saturation on nasal cannula is 94% to 95%. HEENT: Normocephalic and atraumatic. NECK: No JVD. CARDIOVASCULAR: Systolic ejection murmur at the lower left sternal border. No S3 gallop. LUNGS: Better breath sounds at the bases. Much less/minimal rhonchi. No wheezing. EXTREMITIES: Mild edema. No cyanosis, no clubbing. Calves are nontender to palpation. GASTROINTESTINAL: Abdomen is soft, nontender and nondistended. Bowel sounds are positive. SKIN: No acute rash. NEUROLOGIC: Limited at the present time. LABORATORY DATA: A triple phase liver CAT scan was done yesterday. There are solid lesions noted in the liver and spleen suspicious for metastatic disease. CAT scan of the head was also done. There is no evidence of metastatic disease. IMPRESSION: 1. Probable advanced adenocarcinoma of the lung. 2. Acute myocardial infarction. 3. Chronic obstructive pulmonary disease. 4. Recurrent bronchitis. 5. Rule out pneumonia. 6. Mild anemia. PLAN: The patient appears very comfortable this morning. She is not short of breath at rest. She is coughing much less. She does state to feeling much better overall. In addition, she is in better spirits this morning. On physical exam, there is significantly less bronchospasm overall. I will continue with the current nebulizer treatments and low-dose intravenous steroids for now. The patient also remains on antibiotic therapy. There are no temperatures noted. Again, I did meet with Dr. Cunningham (from pathology). The CAT scan-guided lung biopsy pathology is consistent with adenocarcinoma. Additional stains are pending. Oncology evaluation is pending. The patient is also status post cardiac catheterization. I did discuss the catheterization with Dr. Norman at length. Clinical status of the patient is certainly improved - compared to the initial presentation. However, unfortunately, the future status/prognosis for this elderly dwight patient remains very guarded at best. I will discuss the above with Dr. Proctor this morning. Donato Razo MD DARI[facility]
[2017-05-05] MEDS: Azithromycin 500MG/NS 250ml 500 MG/250 ML BAG IVPB SCH (09:20)
[2017-05-05] MEDS: MethylPREDNISolone 40 mg Vial IVP SCH ×2 (09:20→22:04)
[2017-05-05] MEDS: cefTRIAXone 1 gm 1 GM/100 ML BAG IVPB SCH (09:21)
--- NOTE | 2017-05-05 09:26 | CP.PCM.PN ---
Subjective - Date & Time of Evaluation Date of Evaluation: 05/05/17 Time of Evaluation: 09:23 - Subjective Subjective: Heme/Onc Progress Note for Dusty Patterson PGY2 Patient seen and examined at bedside. As per nursing, there were no acute overnight events. Patient reports she slept well. She denies chest pain, shortness of breath, nausea/vomiting, diarrhea, numbness/tingling, fever/chills , dysuria or hematuria. Objective - Vital Signs/Intake and Output Vital Signs (last 24 hours): Temp Pulse Resp BP Pulse Ox 98.7 F 90 18 118/51 L 94 L 05/05/17 06:00 05/05/17 06:00 05/05/17 06:00 05/05/17 06:00 05/05/17 06:00 Intake and Output: 05/05/17 05/05/17 06:59 18:59 Intake Total 120 Output Total 100 Balance 20 - Medications Medications: Current Medications Acetaminophen (Tylenol 325mg Tab) 650 mg PO Q6H PRN PRN Reason: Fever >100.4 F Albuterol/Ipratropium (Duoneb 3 Mg/0.5 Mg (3 Ml) Ud) 3 ml IH Q2H PRN PRN Reason: Shortness of Breath Albuterol/Ipratropium (Duoneb 3 Mg/0.5 Mg (3 Ml) Ud) 3 ml IH [id number] [facility] Last Admin: 05/05/17 07:39 Dose: 3 ml Aspirin (Ecotrin) 81 mg PO DAILY [facility] Last Admin: 05/04/17 10:32 Dose: Not Given Atorvastatin Calcium (Lipitor) 10 mg PO DIN [facility] Last Admin: 05/04/17 16:27 Dose: 10 mg Budesonide (Pulmicort Respules) 0.5 mg IH [id number] [facility] Last Admin: 05/05/17 07:40 Dose: 0.5 mg Guaifenesin (Robitussin) 200 mg PO Q8H PRN PRN Reason: Cough and congestion Last Admin: 05/04/17 16:34 Dose: 200 mg Ceftriaxone Sodium (Rocephin 1 Gram Ivpb) 1 gm in 100 mls @ 100 mls/hr IVPB DAILY [facility] PRN Reason: Protocol Last Admin: 05/04/17 09:45 Dose: 100 mls/hr Azithromycin (Zithromax 500mg In Ns) 500 mg in 250 mls @ 167 mls/hr IVPB DAILY [facility] PRN Reason: Protocol Last Admin: 05/04/17 11:48 Dose: 167 mls/hr Isosorbide Mononitrate (Imdur Er) 30 mg PO DAILY [facility] Methylprednisolone (Solu-Medrol) 20 mg IVP Q12 [facility] Last Admin: 05/04/17 22:29 Dose: 20 mg Metoprolol Tartrate (Lopressor) 25 mg PO BID [facility] Last Admin: 05/04/17 18:45 Dose: 25 mg Ondansetron HCl (Zofran Inj) 4 mg IVP Q6H PRN PRN Reason: Nausea/Vomiting Last Admin: 05/04/17 16:25 Dose: 4 mg Oxycodone/Acetaminophen (Percocet 5/325 Mg Tab) 1 tab PO Q4H PRN PRN Reason: Pain, moderate (4-7) Stop: 05/07/17 17:18 Pantoprazole Sodium (Protonix Ec Tab) 40 mg PO 0600 [facility] Last Admin: 05/05/17 06:49 Dose: 40 mg - Labs Labs: 05/05/17 06:00 05/05/17 06:00 PT 13.4 SECONDS (9.4-12.5) H 05/02/17 06:00 INR 1.21 (0.93-1.08) H 05/02/17 06:00 - Constitutional Appears: No Acute Distress - Head Exam Head Exam: ATRAUMATIC, NORMAL INSPECTION, NORMOCEPHALIC - Eye Exam Eye Exam: Normal appearance Pupil Exam: NORMAL ACCOMODATION, PERRL - ENT Exam ENT Exam: Mucous Membranes Moist - Neck Exam Neck Exam: Full ROM - Respiratory Exam Respiratory Exam: Clear to Ausculation Bilateral, NORMAL BREATHING PATTERN. absent: Rales, Rhonchi, Wheezes - Cardiovascular Exam Cardiovascular Exam: REGULAR RHYTHM, +S1, +S2. absent: Gallop, Rubs, Murmur - GI/Abdominal Exam GI & Abdominal Exam: Soft, Normal Bowel Sounds, Rebound. absent: Tenderness - Extremities Exam Extremities Exam: Normal Inspection, Pedal Edema (trace bilaterally ). absent: Calf Tenderness - Neurological Exam Neurological Exam: Alert, Awake, CN II-XII Intact, Oriented x3 - Psychiatric Exam Psychiatric exam: Normal Affect, Normal Mood - Skin Skin Exam: Dry, Warm Assessment and Plan - Assessment and Plan (Free Text) Assessment: This is an 81yo female with past medical history of HTN, dyslipidemia, DC and anxiety who was admitted for: 1. NSTEMI s/p cardiac cath without stents. 2. Lung Mass- seen on CT chest s/p lung biopsy (preliminary path showed poorly differentiated adenocarcinoma). CT head was negative for metastasis and CT abdomen/pelvis with liver protocol showed metastasis to the liver (Please see full report for more details). 3. UTI- positive for E.coli 4. Pneumonia - Seen on CXR 5. COPD 6. 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 Jain as outpatient upon discharge - As per heme standpoint, patient is OK for discharge Case seen, discussed and reviewed with Dr. Jain. Dusty Mendoza PGY2
[2017-05-05] MEDS: guaiFENesin 200 mg/10 ml Syrup UD PO PRN (09:44)
--- NOTE | 2017-05-05 10:21 | CP.PCM.CON ---
History of Present Illness - History of Present Illness History of Present Illness: Palliative consult requested by Dr Mendoza copied to Dr aSrah Proctor Reason: Advance care planning 81 year old female with history od HTN,HLD and OR who presented with shortness of breath and cough. The cough is non productive,chronic for the past several months, she also reported weight loss and fatigue. She denied nausea, vomiting, diarrhea, neuropathy or pain. CT showed a mediastinal mass circumferentially developing in L pulmonary artery, portions of the esophagus and descending into the aorta. Mass biopsy, pathology showed poorly differentiated adenocarcinoma. She was also found to have a NSTEMI. Cardiac cath done,unable to place stent in LAD due to atherosclerosis. Other workup was positive for UTI. PMHx: HTN, HLD,OR anxiety, bilteral totoal knee replacment, cholecystectomy, appendectomy. Social History: Former heavy smoker(40 pack year),no alcohol or drug use. Lives alone. 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 Family History: Non contributory Advance Care Planning: The patient does not have an Advance Directive. Review of Systems: As per HPI, all other systems reviewed and are negative Past Patient History - Infectious Disease Hx of Infectious Diseases: None - Past Social History Smoking Status: Former Smoker Alcohol: None Drugs: Denies Home Situation {Lives}: Alone - CARDIAC Hx Cardiac Disorders: Yes (mi 30 yrs ago) Hx Hypertension: Yes - PULMONARY Hx Chronic Obstructive Pulmonary Disease (COPD): Yes - NEUROLOGICAL Hx Neurological Disorder: No - HEENT Hx HEENT Problems: Yes (eyeglasses) Hx Glaucoma: Yes - RENAL Hx Chronic Kidney Disease: No - ENDOCRINE/METABOLIC Hx Endocrine Disorders: No - HEMATOLOGICAL/ONCOLOGICAL Hx Blood Transfusions: No Hx Blood Transfusion Reaction: No (na) - INTEGUMENTARY Hx Dermatological Problems: No - MUSCULOSKELETAL/RHEUMATOLOGICAL Hx Musculoskeletal Disorders: Yes Hx Falls: No Hx Spinal Stenosis: Yes - GASTROINTESTINAL Hx Gastroesophageal Reflux: Yes - GENITOURINARY/GYNECOLOGICAL Hx Genitourinary Disorders: No - PSYCHIATRIC Hx Psychophysiologic Disorder: No Hx Substance Use: No - SURGICAL HISTORY Hx Surgeries: Yes - ANESTHESIA Hx Anesthesia Reactions: No Hx Malignant Hyperthermia: No Meds Allergies/Adverse Reactions: Allergies Allergy/AdvReac Type Severity Reaction Status Date / Time No Known Allergies Allergy Verified 04/29/17 14:25 - Medications Medications: Current Medications Acetaminophen (Tylenol 325mg Tab) 650 mg PO Q6H PRN PRN Reason: Fever >100.4 F Albuterol/Ipratropium (Duoneb 3 Mg/0.5 Mg (3 Ml) Ud) 3 ml IH Q2H PRN PRN Reason: Shortness of Breath Albuterol/Ipratropium (Duoneb 3 Mg/0.5 Mg (3 Ml) Ud) 3 ml IH [id number] [facility] Last Admin: 05/05/17 07:39 Dose: 3 ml Aspirin (Ecotrin) 81 mg PO DAILY [facility] Last Admin: 05/05/17 09:20 Dose: 81 mg Atorvastatin Calcium (Lipitor) 10 mg PO DIN [facility] Last Admin: 05/04/17 16:27 Dose: 10 mg Budesonide (Pulmicort Respules) 0.5 mg IH [id number] [facility] Last Admin: 05/05/17 07:40 Dose: 0.5 mg Guaifenesin (Robitussin) 200 mg PO Q8H PRN PRN Reason: Cough and congestion Last Admin: 05/05/17 09:44 Dose: 200 mg Ceftriaxone Sodium (Rocephin 1 Gram Ivpb) 1 gm in 100 mls @ 100 mls/hr IVPB DAILY [facility] PRN Reason: Protocol Last Admin: 05/05/17 09:21 Dose: 100 mls/hr Azithromycin (Zithromax 500mg In Ns) 500 mg in 250 mls @ 167 mls/hr IVPB DAILY [facility] PRN Reason: Protocol Last Admin: 05/05/17 09:20 Dose: 167 mls/hr Isosorbide Mononitrate (Imdur Er) 30 mg PO DAILY [facility] Last Admin: 05/05/17 09:20 Dose: 30 mg Methylprednisolone (Solu-Medrol) 20 mg IVP Q12 [facility] Last Admin: 05/05/17 09:20 Dose: 20 mg Metoprolol Tartrate (Lopressor) 25 mg PO BID [facility] Last Admin: 05/05/17 09:20 Dose: 25 mg Ondansetron HCl (Zofran Inj) 4 mg IVP Q6H PRN PRN Reason: Nausea/Vomiting Last Admin: 05/04/17 16:25 Dose: 4 mg Oxycodone/Acetaminophen (Percocet 5/325 Mg Tab) 1 tab PO Q4H PRN PRN Reason: Pain, moderate (4-7) Stop: 11/12/17 17:18 Pantoprazole Sodium (Protonix Ec Tab) 40 mg PO 0600 [facility] Last Admin: 05/05/17 06:49 Dose: 40 mg Physical Exam - Constitutional Appears: No Acute Distress - Head Exam Head Exam: NORMAL INSPECTION - Eye Exam Eye Exam: Normal appearance, PERRL - ENT Exam ENT Exam: Mucous Membranes Moist, Normal Oropharynx - Respiratory Exam Respiratory Exam: Decreased Breath Sounds, Wheezes, NORMAL BREATHING PATTERN - Cardiovascular Exam Cardiovascular Exam: REGULAR RHYTHM, +S1, +S2 - GI/Abdominal Exam GI & Abdominal Exam: Normal Bowel Sounds, Soft Additional comments: no tenderness - Extremities Exam Extremities exam: Positive for: normal capillary refill, pedal edema - Back Exam Back exam: NORMAL INSPECTION - Neurological Exam Neurological exam: Alert, Oriented x3 - Skin Skin Exam: Dry, Pallor, Warm - Additional Findings Additional findings: Palliative performance scale rating 70% Results - Vital Signs Recent Vital Signs: Last Vital Signs Temp 98.7 F 05/05/17 06:00 Pulse 99 H 05/05/17 09:20 Resp 18 05/05/17 06:00 BP 118/51 L 05/05/17 09:20 Pulse Ox 94 L 05/05/17 06:00 - Labs Result Diagrams: 05/05/17 06:00 05/05/17 06:00 Labs: Laboratory Results - last 24 hr 05/05/17 05/05/17 06:00 06:00 WBC 21.9 H RBC 4.38 Hgb 12.0 Hct 38.8 MCV 88.6 MCH 27.4 MCHC 30.9 L RDW 16.3 H Plt Count 619 H MPV 8.9 Gran % 87.4 H Lymph % (Auto) 6.9 L Humphreys % (Auto) 5.7 Eos % (Auto) 0.0 L Baso % (Auto) 0.0 Gran # 19.13 H Lymph # 1.5 Humphreys # 1.3 H Eos # 0.0 Baso # 0.01 Sodium 139 Potassium 4.4 Chloride 101 Carbon Dioxide 31 Anion Gap 11 BUN 20 Creatinine 0.6 L Est GFR ( Amer) > 60 Est GFR (Non-Af Amer) > 60 Random Glucose 175 H Calcium 9.0 Phosphorus 4.0 Magnesium 2.1 Total Bilirubin 0.7 AST 27 ALT 67 H Alkaline Phosphatase 137 H Total Protein 6.5 Albumin 3.3 Globulin 3.2 Albumin/Globulin Ratio 1.0 L Assessment & Plan - Assessment and Plan (Free Text) Assessment: 81 year old female with history of HTN, HLD and OR who was admitted with cough, weight loss,shortness of berth, NSTEMI and UTI. Found to have mediastinal mass on workup. Biopsy revealed poorly differentiated adenocarcinoma. Solid lesions also found in liver and spleen findings suspicious for metastatic disease. Ms. Mayen is alert, oriented and of pleasant demeanor. She has a persistent non productive cough. She offers no complaint. She reports her appetite as fair. She is able to perform all ADL's. The patient is aware of her diagnosis of lung cancer. She is waiting to speak with oncology regarding treatment options. The patient is very focused on returning to work. She does not want her illness to interfere with her normal routine. Explained that she may have to adapt her lifestyle to meet the demand of he illness and treatment schedule. She verbalized understanding of this. She does not have an Advanced Directive. POLST directive explained in detail, questions answered. Patient completed POLST, her son Monty Mayen is her health care surrogate. The patient wants to remain of full code status at this time. She does stipulate that if her condition is irreversible she does not want to be kept alive on machines.Psychosocial support given. Time spent in goals of care discussion and advance care planning, 30 minutes Plan: Advance care planning;POLST. Palliative support and counseling - Date & Time Date: 05/05/17 Time: 11:00
--- NOTE | 2017-05-05 13:57 | PN ---
DATE: 05/05/2017 REASON FOR THE CONSULTATION AND FOLLOWUP: Rri-VJ-opnolly myocardial infarction, unstable angina, mediastinal mass, CT-guided biopsy showed poorly differentiated adenocarcinoma. SUBJECTIVE: The patient denies any chest pain, shortness of breath, or palpitation. OBJECTIVE/PHYSICAL EXAMINATION: As follows: GENERAL: Lying flat in the bed, not in apparent distress. VITAL SIGNS: Temperature is afebrile, heart rate is 90, and blood pressure is 118/51. HEENT: PERRLA intact. NECK: Supple. No carotid bruits or thyromegaly. CHEST: Clear to auscultation. HEART: S1 and S2 regular. ABDOMEN: Soft. EXTREMITIES: Clubbing and cyanosis negative. LABORATORY DATA: Blood workup as follows: WBC of 21.9, hemoglobin of 12, hematocrit of 38.8, and platelet count of 619. Chemistry shows sodium of 130, potassium of 4.4, chloride of 101, carbon dioxide of 31, anion gap of 11, BUN of 20, and creatinine of 0.6. DIAGNOSTIC DATA: CAT scan of the liver showed a solid lesions in the liver, largest in the left lobe, and solid lesions in the spleen. Finding suspicious for metastatic disease. CT head, no intracranial hemorrhage noted. IMPRESSION: An 81-year-old female with past medical history significant for coronary artery disease, status post catheterization in 12/22/2006, one vessel coronary artery disease was admitted with tachycardia, chest pain, and troponin positive. Yesterday, the patient underwent cardiac catheterization that revealed left anterior descending totally occluded when compared the film from 12/22/2005, seen. The LAD chronic totally occluded, briefly attempted to cross the lesion, but is heavily calcified chronic total occlusion unable to across, though attempted very briefly and very well collateralized from right coronary artery. Recently, diagnosed mediastinal mass that turned out to be poorly differentiated adenocarcinoma with metastases to the spleen and liver. History of chronic obstructive pulmonary disease, obesity. RECOMMENDATIONS: Medical treatment, From the cardiology point of view, we will put baby aspirin, continue atorvastatin and continue metoprolol. We will add low-dose of nitrate as blood pressure is tolerated. Continue evaluation for possible chemotherapy, as it is not resectable tumor because of the condition as well as metastasis, will probably radiation and chemotherapy as per Hematology/Oncology. Overall, the patient's condition is critical. Long-term prognosis is extremely guarded. Discussed with the son, daughter and the [id number]. Her son and [id number] lives in [place], yesterday was here for cardiac catheter. I explained the patient's condition of heart and overall condition. We will put low dose of nitrate as blood pressure is tolerated. Thank you Dr. Proctor for providing us the opportunity in taking care of the patient, Valeria Mayen. Mara Norman MD
--- NOTE | 2017-05-05 19:31 | PN ---
DATE: SUBJECTIVE: The patient is 81 years old, seen and examined, offered no complaint, doing well. No nausea, vomiting. No diarrhea. PHYSICAL EXAMINATION VITAL SIGNS: The patient is afebrile. Pulse 87, respirations 20, blood pressure of 114/74. LUNGS: Bilateral fair airflow. No rhonchi or crackle. HEART: S1 and S2 audible. ABDOMEN: Soft, nontender. No rebound. No guarding. NEUROLOGICAL: The patient is awake, alert, oriented, communicative and able to ambulate. ASSESSMENT: 1. Left upper lung mass with metastasis to the liver. 2. Coronary artery disease status post cardiac catheterization with no significant change from the prior catheterization. 3. Bilateral knee osteoarthritis. 4. Escherichia coli urinary tract infection, sensitive to Rocephin. PLAN: I will start on Levaquin, that will cover her for bronchitis and we will discontinue Telemetry. Continue on nebulizer treatment. Analgesic as needed. Discharge plan in a.m. The patient was evaluated by Oncology team. PET scan will be done as outpatient and therapy plan will be made. Demarcus Proctor MD
[2017-05-06] MEDS: Albuterol-Ipratrop 3 mg / 0.5 (3 ml) UD IH SCH ×2 (01:20→08:34)
[2017-05-06] MEDS: Pantoprazole 40 mg EC Tab PO SCH (06:37)
[2017-05-06] MEDS: Budesonide 0.5 mg/2 ml Inhal Susp UD IH SCH (08:34)
[2017-05-06 08:44] VITALS: BP 120/71; PULSE 82; RESP 22; TEMP 98; O2SAT 96
[2017-05-06] MEDS ORDERED: levoFLOXacin 500 MG TAB PO SCH (10:00)
--- NOTE | 2017-05-06 10:18 | PN ---
DATE: 05/06/2017 PULMONARY PROGRESS NOTE SUBJECTIVE: Patient was seen and examined at bedside. She appears comfortable. She is currently receiving her inhalation treatment with DuoNeb and added budesonide. She is on low-dose steroids, Solu-Medrol 20 mg every 12. PHYSICAL EXAMINATION VITAL SIGNS: Temperature is 98, pulse is 90, respirations 20, blood pressure is 120/50, oxygen saturation is 94% on room air. HEAD, NOSE, AND THROAT: Within normal limits. NECK: Supple. There is no jugular vein distention. CARDIOVASCULAR: Systolic ejection murmur at the lower sternal border. No S3 gallop. PULMONARY: Improved breath sounds. Few rhonchi. No wheezing. GI: Soft, nontender. No organomegaly. EXTREMITIES: No pedal edema. SKIN: No acute skin rash. NEUROLOGIC: No focal deficits. LABORATORY DATA: There are no new labs to review. ASSESSMENT: 1. Bronchial asthma which is stable, status post acute myocardial infarction. 2. Probable advanced adenocarcinoma of the lung. 3. Recurrent bronchitis. PLAN: Patient's pulmonary status is stable. As per patient, she will be discharged later today to continue with workup and start treatment by oncology. From a pulmonary standpoint, she can be switched to low dose oral steroids and tapered gradually. Cipriano Dee MD
[2017-05-06] MEDS: MethylPREDNISolone 40 mg Vial IVP SCH (10:45)
--- NOTE | 2017-05-06 14:13 | PN ---
DATE: 05/06/2017 REASON FOR CONSULTATION AND FOLLOWUP: Non-ST segment myocardial infarction, unstable angina, mediastinal mass, and CT-guided biopsy showed poorly differentiated adenocarcinoma. SUBJECTIVE: The patient denies any chest pain, shortness of breath, or any palpitations. OBJECTIVE: GENERAL: Lying flat in the bed, wanted to go home. VITAL SIGNS: As follows; temperature afebrile, heart rate 82, and blood pressure 120/71. HEENT: PERRLA intact. NECK: Supple. No carotid bruit or thyromegaly. CHEST: Clear to auscultation. HEART: S1 and S2 regular. ABDOMEN: Soft. EXTREMITIES: Clubbing and cyanosis negative. LABORATORY DATA: Blood workup as follows: WBC 21.9, hemoglobin 12, hematocrit 38.8, and platelet count 619. Chemistry shows sodium 132, potassium 4.4, chloride 101, carbon dioxide of 31, anion gap of 11, BUN of 20, and creatinine 0.6. IMPRESSION AND PLAN: Mediastinal mass, lung tumor turned out to be poorly differentiated adenocarcinoma, [id number] myocardial infarction, status post cardiac catheterization, left anterior descending totally occluded when compared to previous catheterization dated 12/22/2006, no change appreciated and had totally chronic occluded left anterior descending on 12/22/2005. Medical treatment recommended. The patient since no stent was placed, no Plavix needs to be continued, just only baby aspirin. Continue isosorbide dinitrate. Continue atorvastatin. Continue beta-reggie. The patient is okay to be discharge from Cardiology point of view when cleared from Pulmonary and Internal Medicine. Mara Norman MD
--- NOTE | 2017-05-06 19:16 | PN ---
DATE: 05/06/2017 SUBJECTIVE: The patient is an 81-year-old female seen getting dressed, ready for discharge as per Dr. Proctor. With the patient's status post a biopsy of a 5 cm left hilar mass with adeno CA stage IV diagnosed. The patient is also status post a non-ST elevated AL with elevated white blood cell count secondary to steroids. The patient continues to cough with cough medication to continue. She is, otherwise, in no acute distress with her daughter at the bedside. OBJECTIVE PHYSICAL EXAMINATION: VITAL SIGNS: Temperature 98, pulse 82, respirations 22, blood pressure 120/71, and pulse ox 96%. HEENT: Unremarkable. NECK: Supple. HEART: Regular rate with 1/6 systolic ejection murmur. LUNGS: Minimal decreased breath sounds. Occasional rhonchi. ABDOMEN: Obese, soft, and nontender. EXTREMITIES: No edema. SKIN: Warm and dry. NEUROLOGIC: Awake, alert, and oriented x3. LABORATORY DATA: The patient's labs were done yesterday with a white blood cell count of 21,900, thought to be secondary to IV steroids, hemoglobin of 12.0, hematocrit 38.8, platelet count of 619,000, with a chem metabolic panel showing a nonfasting glucose of 175 with an ALT of 67, otherwise, normal chem metabolic panel. ASSESSMENT: 1. For this patient, status newly diagnosed stage IV adenocarcinoma of the lung, the left hilar mass 5 cm, status post biopsy, cough secondary to above. 2. Atherosclerotic cardiovascular disease. 3. History of degenerative joint disease. 4. Hypertension. 5. Hyperlipidemia. 6. Anxiety. 7. Obesity. PLAN: The plan for this patient after conversation with Dr. Jain are to continue present medical regimen with cough medication, continuation of steroids as per pulmonary consultants and primary medical doctor as she is presently getting Solu-Medrol 20 mg every [address] Razo. We will also recommend followup in Dr. Jain's office early this week with a prescription for PET CT scan, diagnosis of cancer of the lung to be done as per Dr. Jain's recommendation. With follow up in the office early next week or to return to the Emergency Room should her condition deteriorate with other followups as per Dr. Norman, her tool hardener. There is consideration of patient being treated with Gilotrif as per Dr. Jain. Further evaluation after the tissue diagnosis biopsy specimen is processed for cell genetic testing. Dereck Leyva MD
--- NOTE | 2017-05-07 01:53 | DS ---
HISTORY OF PRESENT ILLNESS: The patient is an 81-year-old who has been complaining of cough for 2 weeks. The patient also under care of Dr. Razo, who gave 2 rounds of antibiotics, nebulizer treatment, different antitussives with no significant relief. She came to me, 3 days prior to come into the hospital with similar complaints. Sent her for CT scan of the chest and gave Advair 500/50, the patient never went for CT scan; however, she came, left my office on 04/29/2017 with generalized weakness, difficulty walking, more and more cough, so she was referred to Emergency Room where we ordered the CT scan that shows left upper lung mass versus pneumonia. The patient was started on IV antibiotics, stereotactic biopsy were done and found to have poorly differentiated adenocarcinoma. Further workup showed that she has mets to the liver. On examination, the patient also was found to have positive troponin. Dr. Norman was involved and he did cardiac cath that showed that she was found to have left anterior descending total occlusion as compared to previous etherization in 2006. There was no change and totally chronic occluded left anterior descending was found and advise was to continue medical treatment. PHYSICAL EXAMINATION: GENERAL: On examination today, the patient is awake, alert and oriented, communicative, anxious to go home. VITAL SIGNS: She is afebrile. Pulse 82, respirations 22, blood pressure 120/70. LUNGS: Bilateral fair airflow. No rhonchi or crackles. HEART: S1 and S2 audible. ABDOMEN: Soft. Nontender. No rebound. No guarding. NEUROLOGIC: The patient is awake, alert, oriented, communicative, ambulatory. LABORATORY DATA: WBC is 21.9, hemoglobin 12, hematocrit 38, platelet of 619. Chemistries; sodium 139, potassium 4.4, chloride 101, CO2 of 31, BUN 20, creatinine 0.6, blood sugar 175. ALT 67, AST 134. ASSESSMENT: 1. Left upper lung mass poorly differentiated adenocarcinoma of the lung. 2. Liver metastasis. 3. Coronary artery disease. 4. Chronic obstructive pulmonary disease. 5. Hypertension. PLAN: The patient is being discharged home. She has nebulizer machine at home. She is on antitussives. She will follow with Dr. Jain's office in next week. We will have PET scan done and different possibilities of treatment will be discussed by Dr. Jain and will be pursued as per Dr. Jain. Demarcus Proctor MD
== END 2017-05-06 14:22 | disposition home or self-care (01) | DRG 250 ==
LOC: ED 14:11 → ERH 17:56 → 2RSO 20:04 → 5RSO 05-05 15:08
PROVIDERS: ADMIT Internal Medicine; ATTEND Internal Medicine
PROC: 0BBG3ZX Excision of Left Upper Lung Lobe, Percutaneous Approach, Diagnostic (ICD-10-PCS; 2017-05-01)
PROC: 02703ZZ Dilation of Coronary Artery, One Artery, Percutaneous Approach (ICD-10-PCS; principal; 2017-05-04)
PROC: 4A023N7 Measurement of Cardiac Sampling and Pressure, Left Heart, Percutaneous Approach (ICD-10-PCS; 2017-05-04)
PROC: B2151ZZ Fluoroscopy of Left Heart using Low Osmolar Contrast (ICD-10-PCS; 2017-05-04)
PROC: B2111ZZ Fluoroscopy of Multiple Coronary Arteries using Low Osmolar Contrast (ICD-10-PCS; 2017-05-04)
DX: I21.4 Non-ST elevation (NSTEMI) myocardial infarction (principal); J18.9 Pneumonia, unspecified organism; C78.7 Secondary malignant neoplasm of liver and intrahepatic bile duct; N39.0 Urinary tract infection, site not specified; C34.12 Malignant neoplasm of upper lobe, left bronchus or lung; I25.110 Atherosclerotic heart disease of native coronary artery with unstable angina pectoris; I25.82 Chronic total occlusion of coronary artery; D64.9 Anemia, unspecified; E66.01 Morbid (severe) obesity due to excess calories; B96.20 Unspecified Escherichia coli [E. coli] as the cause of diseases classified elsewhere; J43.9 Emphysema, unspecified; I10 Essential (primary) hypertension; F41.9 Anxiety disorder, unspecified; E78.5 Hyperlipidemia, unspecified; M17.0 Bilateral primary osteoarthritis of knee; Z96.653 Presence of artificial knee joint, bilateral; D47.3 Essential (hemorrhagic) thrombocythemia; Z87.891 Personal history of nicotine dependence; Z68.30 Body mass index [BMI] 30.0-30.9, adult

== ENCOUNTER 2017-05-13 09:40 | Inpatient (IN) | payer MEDICARE, OTHER ==
[2017-05-13 09:45] VITALS: BMI 30.1
[2017-05-13] MEDS ORDERED: Ipratropium 0.02% Inhal Soln (0.5 mg/2.5 ml) UD IH STA ×2 (09:46→11:14)
[2017-05-13] MEDS ORDERED: Sodium Chloride 0.9% 500 ML IV STA (10:08)
--- NOTE | 2017-05-13 10:17 | ED PDOC ---
Arrival/HPI - General Chief Complaint: Shortness Of Breath Time Seen by Provider: 05/13/17 09:45 Historian: Patient - History of Present Illness Narrative History of Present Illness (Text): 05/13/17 10:12 An 81 year old female, whose past medical history includes, COPD, Asthma and Emphysema, recently discharged earlier this week when she presented for evaluation of shortness of breath. Work up was positive for PNA and new diagnoses of poorly differentiated metastatic adenocarcinoma. The patient states that she felt better 1-2 days after the discharge, but 3 days ago she began to cough, experience increased somnolence decreased appetite, increased malaise, and worsening SOB. The shortness of breath became so acute today that she presents to emergency department. The patient denies fevers, chills, headache, dizziness, chest pain, abdominal pain, nausea, vomiting, diarrhea, back pain, neck pain, urinary/bowel changes, or any other complaint. PMD: Dr. Jasper Proctor Time/Duration: Other (3 Days) Symptom Onset: Sudden Symptom Course: Unchanged Activities at Onset: Rest, Light Context: Home Past Medical History - Provider Review Nursing Documentation Reviewed: Yes - Infectious Disease Hx of Infectious Diseases: None - Cardiac Hx Cardiac Disorders: Yes (mi 30 yrs ago) Hx Hypertension: Yes - Pulmonary Hx Asthma: Yes Hx Bronchitis: Yes Hx Chronic Obstructive Pulmonary Disease (COPD): Yes Hx Emphysema: Yes - Neurological Hx Neurological Disorder: No - HEENT Hx HEENT Disorder: Yes (eyeglasses) Hx Glaucoma: Yes - Renal Hx Renal Disorder: No - Endocrine/Metabolic Hx Endocrine Disorders: No - Hematological/Oncological Hx Blood Transfusions: No Hx Blood Transfusion Reaction: No (na) - Integumentary Hx Dermatological Disorder: No - Musculoskeletal/Rheumatological Hx Musculoskeletal Disorders: Yes Hx Falls: No Hx Spinal Stenosis: Yes - Gastrointestinal Hx Gastroesophageal Reflux: Yes - Genitourinary/Gynecological Hx Genitourinary Disorders: No - Psychiatric Hx Psychophysiologic Disorder: No Hx Substance Use: No - Surgical History Hx Cholecystectomy: Yes Other/Comment: B/L knee replacement left knee at 70 yrs old and right knee 79 years old, pac in and out 21 yrs ago following gallbladder sx due to poor veins - Anesthesia Hx Anesthesia Reactions: No Hx Malignant Hyperthermia: No Family/Social History - Physician Review Nursing Documentation Reviewed: Yes Family/Social History: No Known Family HX Smoking Status: Former Smoker Hx Alcohol Use: No Hx Substance Use: No Allergies/Home Meds Allergies/Adverse Reactions: Allergies No Known Allergies Allergy (Verified 05/13/17 09:45) Home Medications: Home Meds Medication Instructions Recorded Confirmed Ezetimibe/Simvastatin [Vytorin 10 1 tab PO DAILY 12/19/14 05/13/17 mg-20 mg] Fluticasone/Salmeterol 250/50 1 puff INH BID 12/19/14 05/13/17 [Advair Diskus 250/50] Latanoprost 0.005% Opht [Xalatan 1 drop BOTHEYES DAILY 12/19/14 05/13/17 Opht] Nitroglycerin 0.4 mg/hr [Nitro-Dur 1 patch TD DAILY 12/19/14 05/13/17 0.4 mg/hr Patch] diltiaZEM [Cardizem] 120 mg PO DAILY 12/19/14 05/13/17 Azelastine/Fluticasone [Dymista 1 spray INH DAILY 02/23/17 05/13/17 Nasal [place]] Aspirin [Ecotrin] 81 mg PO DAILY 04/29/17 05/13/17 Promethazine HCl/Codeine 1 tsp PO TID 04/29/17 05/13/17 Alprazolam [Xanax] 0.5 mg PO PRN PRN 05/13/17 05/13/17 Aspirin [Adult Low Dose Aspirin EC] 81 mg PO DAILY 05/13/17 05/13/17 Review of Systems - Physician Review All systems were reviewed & negative as marked: Yes - Review of Systems Constitutional: absent: Fevers, Night Sweats Respiratory: SOB, Cough Gastrointestinal: absent: Abdominal Pain, Stool Changes, Diarrhea, Nausea, Vomiting Genitourinary Female: absent: Urine Output Changes Musculoskeletal: absent: Back Pain, Neck Pain Neurological: absent: Headache, Dizziness Physical Exam Vital Signs Reviewed: Yes Vital Signs Temp Pulse Resp BP Pulse Ox 05/13/17 12:07 107 H 119/67 05/13/17 11:41 101 F H 110 H 24 118/72 95 05/13/17 09:51 99.2 F 106 H 22 119/85 93 L Temperature: Afebrile Blood Pressure: Normal Pulse: Tachycardic Respiratory Rate: Normal Appearance: Positive for: Well-Appearing, Non-Toxic, Other (Mild respiratory distress.) Pain Distress: None Mental Status: Positive for: Alert and Oriented X 3 - Systems Exam Head: Present: Atraumatic, Normocephalic Pupils: Present: PERRL Extroacular Muscles: Present: EOMI Conjunctiva: Present: Normal Mouth: Present: Moist Mucous Membranes Neck: Present: Normal Range of Motion Respiratory/Chest: Present: Clear to Auscultation, Tachypneic Cardiovascular: Present: Tachycardic Abdomen: Present: Normal Bowel Sounds. No: Tenderness, Distention, Peritoneal Signs Back: Present: Normal Inspection Upper Extremity: Present: Normal Inspection. No: Cyanosis, Edema Lower Extremity: Present: Edema (Trace pedal edema) Neurological: Present: GCS=15, CN II-XII Intact, Speech Normal Skin: Present: Warm, Dry, Normal Color. No: Rashes Psychiatric: Present: Alert, Oriented x 3, Normal Insight, Normal Concentration Medical Decision Making ED Course and Treatment: 05/13/17 10:19 Impression: An 81 year old female presents to the emergency department with a complaint of 3 day duration dry cough, increased somnolence, decreased appetite, increased malaise, and worsening SOB. Plan: -- EKG -- Chest X-ray -- Labs -- Urinalysis -- Urine/ Blood Cultures -- Atrovent, SOLU-Medrol, and IV Fluids -- Reassess and disposition Prior Visits: Notes and results from previous visits were reviewed. Patient was last seen in the emergency department on 04/29/2017. The patient was seen in the emergency department for persistent dry cough. The patient was hospitalized. Progress Notes: - Lab Interpretations Lab Results: 05/13/17 10:15 05/13/17 10:15 Lab Results 05/13/17 10:15: Sodium 137, Chloride 102, Potassium 3.3 L, Carbon Dioxide 30, Anion Gap 8 L, BUN 17, Creatinine 0.5 L, Est GFR ( Amer) > 60, Est GFR ( Non-Af Amer) > 60, Random Glucose 187 H, Calcium 8.9, Total Bilirubin 2.0 H, AST 51 H D, ALT 46, Alkaline Phosphatase 257 H D, Lactate Dehydrogenase 4136 H, Total Creatine Kinase 70, Troponin I 0.90 H* D, NT-Pro-B Natriuret Pep 1490 H, Total Protein 6.3, Albumin 3.1, Globulin 3.2, Albumin/Globulin Ratio 1.0 L 05/13/17 10:15: PT 16.3 H, INR 1.47 H, APTT 31.5 05/13/17 10:15: WBC 26.4 H* D, RBC 4.25, Hgb 11.9 L, Hct 37.3, MCV 87.8, MCH 28.0, MCHC 31.9, RDW 17.0 H, Plt Count 242, MPV 9.0, Gran % 86.3 H, Lymph % ( Auto) 6.1 L, [place] % (Auto) 7.6 H, Eos % (Auto) 0.0 L, Baso % (Auto) 0.0, Gran # 22.79 H, Lymph # 1.6, [place] # 2.0 H, Eos # 0.0, Baso # 0.01 05/13/17 10:10: pO2 45, VBG pH 7.46 H, VBG pCO2 40.0, VBG HCO3 28.4 H, VBG Total CO2 29.6 H, VBG O2 Sat (Calc) 88.0 H, VBG Base Excess 4.2 H, VBG Potassium 3.3 L, Sodium 137.0, Chloride 104.0, Glucose 191 H, Lactate 1.4, FiO2 21.0, Venous Blood Potassium 3.3 L I have reviewed the lab results: Yes - RAD Interpretation Radiology Orders: 05/13/17 11:14 CHEST PORTABLE [RAD] Stat - EKG Interpretation Interpreted by ED Physician: Yes Type: 12 lead EKG - Medication Orders Current Medication Orders: Acetaminophen (Tylenol 325mg Tab) 975 mg PO STAT STA Stop: 05/13/17 12:14 Diltiazem HCl (Cardizem) 30 mg PO STAT STA Stop: 05/13/17 12:15 Clindamycin Phosphate 900 mg/ (Sodium Chloride) 106 mls @ 106 mls/hr IVPB STAT STA PRN Reason: Protocol Stop: 05/13/17 12:28 Last Admin: 05/13/17 12:00 Dose: 106 mls/hr eMAR Start Stop Document 05/13/17 12:00 GMI (Rec: 05/13/17 12:01 GMI [id number]) Intravenous Solution Start Date 05/13/17 Start Time 11:30 Discontinued Medications Aspirin (Ecotrin) 325 mg PO STAT STA Stop: 05/13/17 11:13 Last Admin: 05/13/17 11:58 Dose: 325 mg Diltiazem HCl (Cardizem) 10 mg IVP STAT STA Stop: 05/13/17 11:14 Last Admin: 05/13/17 12:07 Dose: MAR Pulse and Blood Pressure Document 05/13/17 12:07 GMI (Rec: 05/13/17 12:07 GMI [id number]) Pulse Pulse Rate (60-90 beats/min) 107 Blood Pressure Blood Pressure (100/60-150/90 mm Hg) 119/67 Diltiazem HCl (Cardizem) 30 mg PO STAT STA Stop: 05/13/17 11:29 Last Admin: 05/13/17 12:07 Dose: 30 mg Sodium Chloride (Sodium Chloride 0.9%) 500 mls @ 999 mls/hr IV .Q31M STA Stop: 05/13/17 10:38 Last Admin: 05/13/17 10:25 Dose: 999 mls/hr eMAR Start Stop Document 05/13/17 10:25 GMI (Rec: 05/13/17 10:25 GMI [id number]) Intravenous Solution Start Date 05/13/17 Start Time 10:25 End Date 05/13/17 End time 12:11 Total Infusion Time 106 Cefepime HCl (Maxipime 1gm) 1 gm in 100 mls @ 100 mls/hr IVPB STAT STA PRN Reason: Protocol Stop: 05/13/17 12:15 Ipratropium [place] (Atrovent) 0.5 mg IH STAT STA Stop: 05/13/17 09:47 Last Admin: 05/13/17 10:25 Dose: 0.5 mg Ipratropium [place] [facility] (Atrovent) 0.5 mg IH STAT STA Stop: 05/13/17 11:15 Last Admin: 05/13/17 11:45 Dose: 0.5 mg Methylprednisolone (Solu-Medrol) 125 mg IVP STAT STA Stop: 05/13/17 10:08 Last Admin: 05/13/17 10:25 Dose: 125 mg IVP Administration Document 05/13/17 10:25 GMI (Rec: 05/13/17 10:25 GMI [id number]) Charges for Administration # of IVP Administrations 1 - Scribe Statement The provider has reviewed the documentation as recorded by the Bubbaibarnel Andrade Provider Michaela Attestation: All medical record entries made by the Scribe were at my direction and personally dictated by me. I have reviewed the chart and agree that the record accurately reflects my personal performance of the history, physical exam, medical decision making, and the department course for this patient. I have also personally directed, reviewed, and agree with the discharge instructions and disposition. Disposition/Present on Arrival - Present on Arrival Any Indicators Present on Arrival: No History of DVT/PE: No History of Uncontrolled Diabetes: No Urinary Catheter: No History of Decub. Ulcer: No History Surgical Site Infection Following: None - Disposition Have Diagnosis and Disposition been Completed?: Yes Diagnosis: COPD exacerbation Disposition: HOSPITALIZED Disposition Time: 12:16 Patient Plan: Admission Condition: FAIR Referrals: Demarcus Proctor MD [Primary Care Provider] - Follow up with primary Forms: Birdi (Faroese)
[2017-05-13 10:30] LABS: VENOUS BLOOD GAS BASE EXCESS 4.2 mmol/L (0.0-2.0); VENOUS BLOOD PH 7.46 (7.32-7.43)
[2017-05-13 10:33] LABS: BASO # 0.01 K/mm3 (0.0-2.0); GRAN # 22.79 (1.4-6.5); GRAN % 86.3 % (50.0-68.0); HEMATOCRIT 37.3 % (36.0-48.0); LYMPH # 1.6 (1.2-3.4); LYMPH % 6.1 % (22.0-35.0); MEAN CELL VOLUME 87.8 fl (80.0-105.0); MEAN CORPUSCULAR HGB CONC 31.9 g/dl (31.0-37.0); MONO % 7.6 % (1.0-6.0)
[2017-05-13 10:36] LABS: WHITE BLOOD COUNT 26.4 10^3/ul (4.5-11.0)
[2017-05-13 10:41] LABS: INR 1.47 (0.93-1.08); PARTIAL THROMBOPLASTIN TIME 31.5 Seconds (25.1-36.5)
[2017-05-13 10:43] LABS: ALKALINE PHOSPHATASE 257 U/L (38-126); ALT/SGPT 46 U/L (7-56); AST/SGOT 51 U/L (14-36); BLOOD UREA NITROGEN 17 mg/dL (7-21); CALCIUM 8.9 mg/dL (8.4-10.5); CARBON DIOXIDE 30 mmol/L (21-33); CHLORIDE 102 mmol/L (98-107); GFR AFRICAN-AMERICAN > 60; GLUCOSE,RANDOM 187 mg/dL (70-110); POTASSIUM 3.3 mmol/L (3.6-5.0); SODIUM 137 mmol/L (132-148); TOTAL PROTEIN 6.3 g/dL (5.8-8.3)
[2017-05-13] MEDS ORDERED: Aspirin 325 mg EC Tablets PO STA (11:12)
[2017-05-13] MEDS ORDERED: Cefepime 1gm in NS 100ml 1 GM/100 ML BAG IVPB STA (11:16)
[2017-05-13] MEDS ORDERED: Aspirin 325 mg EC Tablets PO ONE (11:21)
[2017-05-13 12:08] LABS: URINE BILIRUBIN SMALL (NEGATIVE); URINE BLOOD MODERATE (NEGATIVE); URINE GLUCOSE (UA) NEGATIVE (NEGATIVE); URINE KETONE NEGATIVE (NEGATIVE); URINE LEUKOCYTE ESTERASE NEGATIVE Leu/uL (NEGATIVE); URINE PROTEIN 30 mg/dL (<30 mg/dL)
[2017-05-13 12:17] LABS: URINE APPEARANCE CLEAR (CLEAR); URINE COLOR YELLOW (YELLOW)
[2017-05-13 12:22] LABS: URINE BACTERIA SMALL (NEG); URINE EPITHELIAL CELLS 0 - 2 /hpf (0-5); URINE WBC 0 - 2 /hpf (0-6)
[2017-05-13] MEDS ORDERED: Enoxaparin 40 mg Syringe SC STA (13:14)
--- NOTE | 2017-05-13 15:39 | HP ---
HISTORY OF PRESENT ILLNESS: The patient is an 81-year-old who was recently admitted because of generalized weakness on 04/29/2017, and because she was having persistent cough, she had CT scan done that shows left upper lung mass that was biopsied. It showed poorly differentiated adenocarcinoma. This morning, I got a call by the daughter, Nina that she is increasingly lethargic, unable to keep her awake, ate little bit, but has not been responding that well, so I advised her to bring her to the emergency room to rule out sepsis or hypocalcemia secondary to malignancy. PAST MEDICAL HISTORY: Significant for hypertension, coronary artery disease, has recent cardiac catheterization done that did not show any new occlusions. She has chronic RCA occlusion with good collateralization. Also history of COPD, bilateral knee osteoarthritis status post knee replacement, anxiety disorder, and hyperlipidemia. PAST SURGICAL HISTORY: She had left total knee replacement almost 2 years ago and did well on that. ALLERGIES: SHE IS NOT ALLERGIC TO ANY MEDICATIONS. HOME MEDICATIONS: She is on aspirin 81 daily and Xanax 0.5 daily. She is on Vytorin, Dymista, diltiazem 120 daily, and Nitro-Dur. SOCIAL HISTORY: She used to be a heavy smoker, but quit few years ago. Does not drink. PHYSICAL EXAMINATION: GENERAL: She is sleepy, but arousable. VITAL SIGNS: She has temperature of 99.2, pulse of 106, respirations of 22, and blood pressure of 119/85. LUNGS: Fair airflow. Few crackles in the left upper lung region. HEART: S1 and S2 audible. ABDOMEN: Soft, obese, and nontender. No rebound, no guarding. NEUROLOGIC: She is awake, alert, oriented, and communicative. LABORATORY DATA: WBC is 26.4, hemoglobin is 11.9, hematocrit is 37.3, and platelets are 242. PT 16.3 and INR 1.47. ABG; pH is 7.46, pCO2 of 40, and pulse ox is 88%. Chemistry; sodium 137, potassium 3.3, chloride 102, CO2 30, BUN 17, creatinine 0.5, and blood sugar of 187. Total bilirubin 2.0, AST 51, ALT 46, alkaline phosphatase 257, LDH is 4136, and troponin 0.90. Chest x-ray is pending. ASSESSMENT: 1. Probably sepsis. 2. Left upper lung mass status post CT-guided biopsy showing poorly differentiated adenocarcinoma. 3. Hypertension. 4. Coronary artery disease. 5. Chronic obstructive pulmonary disease. PLAN: at this time. We will start on IV antibiotics, start on nebulizer treatment. ID, Cardiology and Pulmonary consults will be requested. Demarcus Proctor MD
[2017-05-13] MEDS ORDERED: Albuterol-Ipratrop 3 mg / 0.5 (3 ml) UD IH PRN (16:04)
[2017-05-13] MEDS ORDERED: Oxycodone/Acetaminophen 5/325 mg Tab PO PRN (16:04)
[2017-05-13] MEDS: Non Formulary Medication (Ezetimibe/Simvastatin [Vytorin 10-20 Mg Tablet] 1 TAB) PO SCH (16:14)
--- NOTE | 2017-05-13 17:56 | RAD ---
HISTORY: SHORTNESS OF BREATH COMPARISON: 05/02/2017 FINDINGS: LUNGS: No active pulmonary disease. PLEURA: No significant pleural effusion identified, no pneumothorax apparent. CARDIOVASCULAR: Mild congestive change. Normal heart size. OSSEOUS STRUCTURES: No significant abnormalities. VISUALIZED UPPER ABDOMEN: Normal. OTHER FINDINGS: None. IMPRESSION: Mild congestive change. No evidence of pulmonary edema.
[2017-05-13] MEDS ORDERED: PROMETHAZINE PO SCH (18:00)
[2017-05-13] MEDS ORDERED: CODEINE PO SCH (18:00)
[2017-05-13] MEDS: Promethazine/Cod 6.25mg-10mg/5ml Syr UD PO SCH (18:12)
[2017-05-13] MEDS: Latanoprost 2.5 ml Opht Soln OU SCH (18:12)
[2017-05-13] MEDS: Levalbuterol 1.25 MG/3 ML Inhal Soln UD IH SCH (20:19)
[2017-05-13] MEDS: MethylPREDNISolone 40 mg Vial IV SCH (22:16)
[2017-05-13] MEDS: Cefepime 1gm in NS 100ml 1 GM/100 ML BAG IVPB SCH (22:17)
--- NOTE | 2017-05-13 23:13 | CARD ---
APPROVED REPORT EKG Measurement Heart [id number] <Conclusion> Sinus tachycardia with premature atrial complexes Left axis deviation Left ventricular hypertrophy with repolarization abnormality Anterolateral infarct, age undetermined Abnormal ECG
[2017-05-14] MEDS: Levalbuterol 1.25 MG/3 ML Inhal Soln UD IH SCH ×3 (02:23→20:14)
[2017-05-14] MEDS: Pantoprazole 40 mg EC Tab PO SCH (05:48)
[2017-05-14] MEDS: Budesonide 0.5 mg/2 ml Inhal Susp UD IH SCH ×2 (07:50→20:14)
[2017-05-14] MEDS ORDERED: Metoprolol Succinate 25 mg XL Tab PO SCH (08:00)
[2017-05-14 08:48] LABS: EOS % 0.1 % (1.5-5.0); GRAN # 15.64 (1.4-6.5); GRAN % 91.5 % (50.0-68.0); HEMATOCRIT 32.9 % (36.0-48.0); LYMPH # 0.7 (1.2-3.4); LYMPH % 4.1 % (22.0-35.0); MEAN CELL VOLUME 86.4 fl (80.0-105.0); MEAN CORPUSCULAR HEMOGLOBIN 27.3 pg (25.0-35.0); MEAN CORPUSCULAR HGB CONC 31.6 g/dl (31.0-37.0); MEAN PLATELET VOLUME 9.4 fl (7.0-11.0); MONO # 0.7 (0.1-0.6); MONO % 4.3 % (1.0-6.0); PLATELET COUNT 203 10^3/uL (120.0-450.0); RED CELL DISTRIBUTION WIDTH 16.7 % (11.5-14.5); WHITE BLOOD COUNT 17.1 10^3/ul (4.5-11.0)
[2017-05-14 08:59] LABS: ALKALINE PHOSPHATASE 222 U/L (38-126); ALT/SGPT 48 U/L (7-56); AST/SGOT 38 U/L (14-36); BILIRUBIN,TOTAL 0.9 mg/dL (0.2-1.3); BLOOD UREA NITROGEN 20 mg/dL (7-21); CALCIUM 8.8 mg/dL (8.4-10.5); CARBON DIOXIDE 27 mmol/L (21-33); CHLORIDE 105 mmol/L (98-107); GFR AFRICAN-AMERICAN > 60; GLUCOSE,RANDOM 181 mg/dL (70-110); POTASSIUM 3.6 mmol/L (3.6-5.0); SODIUM 139 mmol/L (132-148); TOTAL PROTEIN 5.9 g/dL (5.8-8.3)
[2017-05-14 09:26] LABS: NEUTROPHIL 95 % (50.0-70.0); PLATELET ESTIMATE NORMAL (NORMAL)
[2017-05-14] MEDS: diltiaZEM 120 mg/24 Hours CD Cap PO SCH (10:23)
[2017-05-14] MEDS: Cefepime 1gm in NS 100ml 1 GM/100 ML BAG IVPB SCH ×2 (10:23→21:19)
[2017-05-14] MEDS: MethylPREDNISolone 40 mg Vial IV SCH ×2 (10:24→21:28)
[2017-05-14] MEDS: Non Formulary Medication (Ezetimibe/Simvastatin [Vytorin 10-20 Mg Tablet] 1 TAB) PO SCH (10:25)
[2017-05-14] MEDS: Promethazine/Cod 6.25mg-10mg/5ml Syr UD PO SCH ×3 (10:25→18:55)
[2017-05-14] MEDS: Latanoprost 2.5 ml Opht Soln OU SCH ×2 (10:25→21:20)
--- NOTE | 2017-05-14 13:58 | PN ---
DATE: 05/14/2017 LOCATION: The patient is in room 374, bed 2. REASON FOR CONSULTATION: Shortness of breath, elevated troponin, coronary artery disease. SUBJECTIVE: The patient states that her shortness of breath has improved as compared to when she came in. Denies any chest pain or palpitation. The patient still has cough, but her cough also improving. PHYSICAL EXAMINATION VITAL SIGNS: Blood pressure 132/80, respirations 20, pulse 104 per minute, and temperature 98.3. HEENT: Head is normocephalic. Eyes, pupils normal. Conjunctivae slightly pale. NECK: JVP low. Carotids equal. THORAX: AP diameter normal. LUNGS: Few expiratory wheezing. No rales. CARDIOVASCULAR: S1 and S2. ABDOMEN: Soft and nontender. No organomegaly. EXTREMITIES: No clubbing. No cyanosis. LABORATORY DATA: Shows her WBC 17.1, hemoglobin 10.4, hematocrit 32.9, and platelets 203. Sodium 139, potassium 3.6, BUN 20, and creatinine 0.4. Random glucose 181. AST 38, ALT 48. First troponin 0.90. Second troponin 1.43. On previous admission on 04/29/2017, the patient has similar elevation of troponin 0.46, 0.37. Cardiac catheterization was done on 05/04/2017 showed LV ejection fraction of 55% to 60%, total occlusion of LAD, which was very well collateralized from the RCA. Attempt was done to try to open LAD, but it was highly calcified and the patient has exact same findings on cath of 12/23/2015, so there was no change in the catheterization and LV ejection fraction was normal, so, the patient was advised to treat medically. DIAGNOSES: Respiratory infection, exacerbation of chronic obstructive pulmonary disease, left upper lung mass showing poorly differentiated adenocarcinoma, hypertension, coronary artery disease, chronic obstructive pulmonary disease, slight troponin elevation was also present on last admission, also present from this admission, whereas cardiac catheterization was done on 05/04/2017 did show no change as compared to 12/23/2015. PLAN: To continue treat the patient medically. The patient did not show any anginal symptoms. The patient is getting Cardizem CD 120 p.o. daily, Vibramycin 100 mg IV q.12 hours, DuoNeb hand nebulizer therapy, aspirin 81 mg daily, cefepime 1 g IV q.12 hours, Solu-Medrol 40 mg IV q.12 hours, Toprol XL 25 mg daily and we will stop that and I will give atenolol 25 daily to help with tachycardia. We will continue to follow. Mara Hidalgo MD
--- NOTE | 2017-05-14 14:12 | CON ---
PULMONARY CONSULTATION REASON FOR CONSULTATION: Chronic obstructive pulmonary disease. REFERRING PHYSICIAN: Demarcus Proctor MD HISTORY: The patient is an 81-year-old female, with past medical history significant for advanced chronic obstructive pulmonary disease, advanced adenocarcinoma of the lung, coronary artery disease, recent myocardial infarction, osteoarthritis, who presents to [facility] with a 2-day history of increasing weakness and lethargy. I did discuss the case with the night nurse at length. I have also reviewed the chart at length. In the emergency room, a significant leukocytosis was also noted. The patient was thus admitted for additional evaluation. Again, I did discuss the case with the night nurse at length. The patient's lethargy has resolved-- while in the hospital, and she has been awake and alert for the night nurse, as well as being awake and alert for me during my consultation. She is very conversive. The patient is not short of breath at rest. She does state to a little more dyspnea on exertion, cough, and sputum production for the past 2 days. No history of chest pain, coughing up of blood, or chest pain-made worse with deep respirations. No history of temperatures, chills or infectious exposure. No history of night sweats. The patient has lost weight over the past few months. Her appetite is okay. No history of leg or calf pains. No history of syncope or diaphoresis. No history of recent travel or trauma. REVIEW OF SYSTEMS: No history of nausea, vomiting or diarrhea. No acute urinary symptoms. No new musculoskeletal complaints. Rest of the review of systems negative. ALLERGIES: NO KNOWN ALLERGIES. SOCIAL HISTORY: Positive for former extensive tobacco usage, no alcohol. FAMILY HISTORY: No inheritable diseases. HOME MEDICATIONS: Include Cardizem, Nitro-Dur, Advair, Vytorin, Ecotrin, aspirin, Xanax. PHYSICAL EXAMINATION: GENERAL: The patient appears comfortable at rest. She is not short of breath. She is not using accessory muscles for breathing. She is awake and alert, conversive. VITAL SIGNS: Temperature is 98.3, pulse is 76, respirations 18/20, blood pressure 130/69. Oxygen saturation on nasal cannula is 96%. HEENT: Normocephalic, atraumatic. NECK: No JVD. CARDIOVASCULAR: Systolic ejection murmur at the lower left sternal border. No S3 gallop. LUNGS: Decreased breath sounds at the bases. Scattered mild rhonchi and wheezing are appreciated bilaterally. EXTREMITIES: Mild edema. No cyanosis, no clubbing. Calves are nontender to palpation. GI: Abdomen is soft, nontender and nondistended. Bowel sounds are positive. SKIN: No acute rash. NEUROLOGIC: Limited at the present time. PERTINENT LABORATORY DATA: Chest x-ray was repeated yesterday and reviewed. The chest x-ray is not significantly changed from the previous film. CBC: White count 26.4, hemoglobin 11.9, hematocrit 37.3, platelets of 242. Complete metabolic profile: Potassium 3.3, glucose 187, bilirubin 2.0, AST 51, alkaline phosphatase 257. Troponin 0.90. B-type nature peptide 1490. Rest of the metabolic profile is within normal limits. Peak troponin 1.43. IMPRESSION: 1. Lethargy-resolved. 2. Leukocytosis. 3. Recurrent bronchitis. 4. Advanced chronic obstructive pulmonary disease. 5. Advanced adenocarcinoma of the lung. 6. Recent myocardial infarction. Increased troponin. 7. Mild anemia. PLAN: Again, I did discuss the case with the night nurse at length. I have also reviewed the chart at length, and discussed the case with the patient at length. The patient presents with increasing weakness and lethargy for the past 2 days. As above, the patient is awake and alert, and conversive at the time of my examination. She is not lethargic at all. In addition to the above, the patient also complains of a mild increase in her pulmonary symptoms for the past 2 days. She was thus admitted for additional evaluation. I did review the x-ray as above. The chest x-ray is not significantly changed from the previous film. I have also reviewed the laboratory data. A significant rise in the white count is noted. Snow cultures have been ordered and will be analyzed when feasible. The patient has been started on intravenous cefepime. She was also given a dose of clindamycin. Infectious Disease evaluation may be of help at this point in time. Repeat a.m. labs are pending. Again, I have reviewed the laboratory data at length. A significant elevation of the troponin is noted. The patient is status post recent cardiac catheterization. However, the troponin is actually higher now than it was during the previous admission. Cardiology evaluation may also be helpful at this point in time. On physical exam, the patient is in [id number] bronchospasm. I will continue with the current nebulizer treatments and intravenous steroids for now. I will also add inhaled Pulmicort. The patient states to feeling much better this morning-compared to the past few days. She is clinically improved. However, unfortunately, the future status/prognosis for this patient remains very poor. I will discuss the above with Dr. Proctor later this morning. Thank you very much for this pulmonary consultation. Donato Razo MD [email or web address]
--- NOTE | 2017-05-14 16:54 | PN ---
DATE: 05/14/2017 SUBJECTIVE: The patient has no complaints of any chest pain, no shortness of breath, no headaches. PHYSICAL EXAMINATION: VITAL SIGNS: Temperature is 98.3, pulse of 100, blood pressure 132/80, and respirations 20. GENERAL: The patient is lying in bed, flat, comfortable. HEENT: No oral lesion. Anicteric sclerae. Moist mucosa. NECK: No JVD, adenopathy, or thyromegaly. CARDIOVASCULAR: S1 and S2, regular. No murmurs, rubs, or gallops. LUNGS: Clear to auscultation bilaterally. No wheeze, rales, or rhonchi. ABDOMEN: Bowel sounds are positive, soft, nontender and nondistended. EXTREMITIES: No cyanosis, clubbing or edema. LABORATORY DATA: White count of 17.1, hemoglobin 10.4, creatinine 0.4. ASSESSMENT: 1. Acute chronic obstructive pulmonary disease exacerbation. 2. Adenocarcinoma of the left lung. 3. Hypertension. 4. Coronary artery disease. PLAN: The patient is currently comfortable. She is on diltiazem for her hypertension. The patient is on doxycycline for antibiotics. The patient wants to continue with aspirin. She is on Vytorin for her dyslipidemia. She is on steroids for her COPD. She is on Xalatan for her glaucoma. She is going to continue with Xopenex. The patient is being followed by Dr. Razo from Pulmonary. Praveen Watson MD
[2017-05-15] MEDS: Levalbuterol 1.25 MG/3 ML Inhal Soln UD IH SCH ×5 (02:50→20:15)
[2017-05-15] MEDS: Pantoprazole 40 mg EC Tab PO SCH (06:09)
[2017-05-15] MEDS: Budesonide 0.5 mg/2 ml Inhal Susp UD IH SCH ×2 (08:12→19:53)
--- NOTE | 2017-05-15 08:16 | PN ---
SUBJECTIVE: The patient appears comfortable this morning. She is not short of breath at rest. PHYSICAL EXAMINATION: VITAL SIGNS: Temperature is 98.1, pulse 84, respirations 18/20, blood pressure 113/70. Oxygen saturation on nasal cannula is 100%. HEENT: Normocephalic, atraumatic. NECK: No JVD. CARDIOVASCULAR: Systolic ejection murmur at the lower left sternal border. No S3 gallop. LUNGS: Improved breath sounds at the bases. Much less rhonchi. Much less wheezing. EXTREMITIES: Mild edema. No cyanosis, no clubbing. Calves are nontender to palpation. GASTROINTESTINAL: Abdomen is soft, nontender and nondistended. Bowel sounds are positive. SKIN: No acute rash. NEUROLOGIC: Limited at the present time. IMPRESSION: 1. Lethargy-resolved. 2. Leukocytosis-resolving. 3. Recurrent bronchitis. 4. Advanced chronic obstructive pulmonary disease. 5. Advanced adenocarcinoma of the lung. 6. Recent myocardial infarction. Increased troponin. 7. Mild anemia. PLAN: The patient appears comfortable this morning. She is not short of breath at rest. She is awake and alert, conversive. She does state to feeling much better overall. On physical exam, her bronchospasm is definitely less. I will continue the current nebulizer treatments and decrease the intravenous steroids this morning. The patient also remains on antibiotic therapy. There are no temperatures noted. Last laboratories (in the computer) did show a decrease in the leukocytosis. I will also order repeat a.m. labs to be done. Clinical status of the patient is significantly improved- compared to the initial presentation. However, unfortunately, the future status/prognosis for this patient does remain poor. I will discuss the above with the attending physician. Donato Razo MD MTDD
--- NOTE | 2017-05-15 08:57 | CON ---
DATE: 05/13/2017 LOCATION: The patient is in room 374, bed 2. REASON FOR CONSULTATION: Shortness of breath, elevated troponin, history of chronic obstructive pulmonary disease. HISTORY OF PRESENT ILLNESS: The patient is an 81-year-old female known case of COPD, admitted with , shortness of breath, cough and whitish expectoration. 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 The patient also had cardiac catheterization on 12/22/2016 which showed totally occluded LAD with collateral from RCA. This was the same finding as on cath of 12/22/2005 and an attempt was made to try to open up this artery, but it was heavily calcified, so it was not able to be opened up. The patient denies any chest pain. At this moment, denies any palpitation. 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 PERSONAL HISTORY: Used to smoke 2 packs, stopped 20 years. Denies drinking. ALLERGIES: THE PATIENT DENIES ANY ALLERGIES. PAST SURGICAL HISTORY: The patient has both knee replacements and cholecystectomy. HOME MEDICATIONS: The patient was on Vytorin 10/20 daily, salmeterol, Nitro-Dur patch 0.4 mg, Cardizem 120 mg p.o. daily, aspirin 81 mg daily, Xanax 0.5 p.r.n. PHYSICAL EXAMINATION: VITAL SIGNS: Blood pressure is 104/63, respirations 18, pulse 91, temperature 98.1 HEENT: Head is normocephalic. Eyes, pupils normal. Conjunctivae slightly pale. NECK: JVP low. Carotid equal. THORAX: AP diameter normal. LUNGS: Prolonged respiration. No significant rales. CARDIOVASCULAR: S1 and S2. ABDOMEN: Soft. No tenderness. No organomegaly. Bowels were normal. EXTREMITIES: No clubbing, no cyanosis. LABORATORY DATA: WBC 26.4, hemoglobin 11.9, hematocrit 37.3, platelets 242. Sodium 137, potassium 3.3, BUN 8, creatinine 0.5. AST 51, ALT 46. Troponin 0.90, second troponin 1.43. LDH 4136, NT-Pro B-type natriuretic peptide 1490. EKG showed sinus tachycardia with PACs, left anterior hemiblock, . Part of this may be related to left anterior hemiblock from ST-T changes. Chest x-ray read as no active pulmonary disease, cardiovascular mild congestive change. ASSESSMENT: Troponin slight elevation, cannot rule out [id number] myocardial infarction, but patient has same troponin elevation on 04/29/2017, which was 0.46 and 0.37, but patient already had cardiac catheterization, chronic obstructive pulmonary disease, poorly differentiated adenocarcinoma with metastasis, elevated WBC, possible sepsis, hypertension, coronary artery disease, chronic obstructive pulmonary disease, respiratory tract infection, possible [id number] myocardial infarction versus false elevation of troponin. PLAN: The patient on diltiazem 120 p.o. daily, DuoNeb hand nebulizer therapy, Ecotrin 81 p.o. daily, Vytorin 10/20 one daily, cefepime 1 g IV q. 12 hours, Protonix 40 mg daily, Solu-Medrol 40 IV q. 12 hours, Toprol-XL 25 daily. We will continue present therapy. The patient had stress test on 02/16/2017 which showed ejection fraction of 63%. We will review chest x-ray. We will follow with you. Mara Hidalgo MD
[2017-05-15] MEDS: Non Formulary Medication (Ezetimibe/Simvastatin [Vytorin 10-20 Mg Tablet] 1 TAB) PO SCH (09:22)
[2017-05-15] MEDS: Cefepime 1gm in NS 100ml 1 GM/100 ML BAG IVPB SCH ×2 (09:23→21:42)
[2017-05-15] MEDS: MethylPREDNISolone 40 mg Vial IVP SCH ×2 (09:24→21:42)
[2017-05-15] MEDS: diltiaZEM 120 mg/24 Hours CD Cap PO SCH (09:25)
[2017-05-15] MEDS: Promethazine/Cod 6.25mg-10mg/5ml Syr UD PO SCH ×3 (09:25→17:34)
[2017-05-15 09:53] LABS: BASO # 0.01 K/mm3 (0.0-2.0); GRAN # 20.42 (1.4-6.5); GRAN % 91.9 % (50.0-68.0); HEMATOCRIT 33.7 % (36.0-48.0); LYMPH % 4.3 % (22.0-35.0); MEAN CELL VOLUME 88.9 fl (80.0-105.0); MEAN CORPUSCULAR HEMOGLOBIN 27.7 pg (25.0-35.0); MEAN CORPUSCULAR HGB CONC 31.2 g/dl (31.0-37.0); MONO # 0.9 (0.1-0.6); MONO % 3.8 % (1.0-6.0); RED CELL DISTRIBUTION WIDTH 17.2 % (11.5-14.5); WHITE BLOOD COUNT 22.2 10^3/ul (4.5-11.0)
[2017-05-15 10:35] LABS: ALB/GLOB RATIO 1.2 (1.1-1.8); ALKALINE PHOSPHATASE 219 U/L (38-126); ALT/SGPT 42 U/L (7-56); AST/SGOT 28 U/L (14-36); BILIRUBIN,TOTAL 0.8 mg/dL (0.2-1.3); BLOOD UREA NITROGEN 23 mg/dL (7-21); CALCIUM 9.2 mg/dL (8.4-10.5); CARBON DIOXIDE 31 mmol/L (21-33); CHLORIDE 104 mmol/L (98-107); GFR AFRICAN-AMERICAN > 60; GLUCOSE,RANDOM 265 mg/dL (70-110); PHOSPHOROUS 2.5 mg/dL (2.5-4.5); SODIUM 140 mmol/L (132-148); TROPONIN I 0.33 ng/mL
--- NOTE | 2017-05-15 15:40 | CP.PCM.CON ---
History of Present Illness - History of Present Illness History of Present Illness: Consult note for Heme/Onc service- Dr Jain. 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 Patient states she was better 1-2 days after discharge, when the cough and shortness of breath suddenly became worst. Patient states she was suppose to be getting nebulizer machine delivered to her home, however it never came. Patient states she was also weak and felt lethargic. Patient has an outpatient appointment to follow up with Dr Jain this Monday prior to this presentation. Patient denies cp, admits to sob, denies n/v/d, or abdominal pain. 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 Past surgical history: Appendectomy, cholecystectomy, bilateral total knee replacement Home meds: As per [facility] Allergies: NKDA Social history: former heavy smoker (2 packs per day x 40yrs), denies EtOH or drug use. Lives alone. 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 Review of Systems - Constitutional Constitutional: Fatigue, Lethargy, Malaise. absent: Fever, Frequent Falls, Night Sweats, Weakness - EENT Eyes: absent: Pain, Photophobia Ears: absent: Dizziness Nose/Mouth/Throat: absent: Epistaxis - Cardiovascular Cardiovascular: Dyspnea. absent: Chest Pain, Chest Pain at Rest, Claudication - Respiratory Respiratory: Cough, Dyspnea. absent: Wheezing, Stridor, Pain on Inspiration - Gastrointestinal Gastrointestinal: absent: Abdominal Pain, Belching, Bloating, Nausea, Vomiting - Neurological Neurological: absent: Abnormal Gait, Dizziness, Syncope - Psychiatric Psychiatric: absent: Confusion, Depression - Endocrine Endocrine: Fatigue - Hematologic/Lymphatic Hematologic: absent: Easy Bleeding, Easy Bruising Past Patient History - Infectious Disease Hx of Infectious Diseases: None - Tetanus Immunizations Tetanus Immunization: Unknown - Past Medical History & Family History Past Medical History?: Yes - Past Social History Smoking Status: Former Smoker Alcohol: None Drugs: Denies Home Situation {Lives}: With Family - CARDIAC Hx Cardiac Disorders: Yes (mi 30 yrs ago) Hx Hypercholesterolemia: Yes Hx Hypertension: Yes Hx Peripheral Edema: Yes (ble +1) - PULMONARY Hx Asthma: Yes Hx Bronchitis: Yes Hx Chronic Obstructive Pulmonary Disease (COPD): Yes Hx Emphysema: Yes Hx Pneumonia: Yes Other/Comment: recently dx with left hilar mass with adenocarcinoma stage IV lung - NEUROLOGICAL Hx Neurological Disorder: No - HEENT Hx HEENT Problems: Yes (eyeglasses) Hx Glaucoma: Yes - RENAL Hx Chronic Kidney Disease: No - ENDOCRINE/METABOLIC Hx Endocrine Disorders: No - HEMATOLOGICAL/ONCOLOGICAL Hx Cancer: Yes (recent dx lung ca) - INTEGUMENTARY Hx Dermatological Problems: No - MUSCULOSKELETAL/RHEUMATOLOGICAL Hx Musculoskeletal Disorders: Yes Hx Degenerative Joint Disease: Yes Hx Falls: No Hx Spinal Stenosis: Yes Hx Unsteady Gait: Yes (weakness) - GASTROINTESTINAL Hx Gastrointestinal Disorders: Yes (poor appetite, weight loss) Hx Gastroesophageal Reflux: Yes - GENITOURINARY/GYNECOLOGICAL Hx Genitourinary Disorders: No - PSYCHIATRIC Hx Psychophysiologic Disorder: No Hx Substance Use: No - SURGICAL HISTORY Hx Cardiac Catheterization: Yes (05/04/17) Hx Cholecystectomy: Yes Other/Comment: B/L knee replacement left knee at 70 yrs old and right knee 79 years old, pac in and out 21 yrs ago following gallbladder sx due to poor veins , ct guide lung bx 05/01/17 - ANESTHESIA Hx Anesthesia Reactions: No Hx Malignant Hyperthermia: No Meds Allergies/Adverse Reactions: Allergies Allergy/AdvReac Type Severity Reaction Status Date / Time No Known Allergies Allergy Verified 05/13/17 09:45 - Medications Medications: Current Medications Acetaminophen (Tylenol 325mg Tab) 650 mg PO Q6H PRN PRN Reason: Fever >100.4 F Albuterol/Ipratropium (Duoneb 3 Mg/0.5 Mg (3 Ml) Ud) 3 ml IH Q2H PRN PRN Reason: Shortness of Breath Last Admin: 05/14/17 13:39 Dose: 3 ml Alprazolam (Xanax) 0.5 mg PO PRN PRN; Protocol PRN Reason: Anxiety Aspirin (Ecotrin) 81 mg PO DAILY [facility] Last Admin: 05/15/17 09:25 Dose: 81 mg Atenolol (Tenormin) 25 mg PO DAILY [facility] Last Admin: 05/15/17 09:24 Dose: 25 mg Budesonide (Pulmicort Respules) 0.5 mg IH [id number] [facility] Last Admin: 05/15/17 08:12 Dose: 0.5 mg Diltiazem HCl (Cardizem Cd) 120 mg PO DAILY [facility] Last Admin: 05/15/17 09:25 Dose: 120 mg Cefepime HCl (Maxipime 1gm) 1 gm in 100 mls @ 100 mls/hr IVPB Q12 ERMA PRN Reason: Protocol Last Admin: 05/15/17 09:23 Dose: 100 mls/hr Doxycycline Hyclate 100 mg/ (Sodium Chloride) 100 mls @ 100 mls/hr IVPB Q12 ERMA PRN Reason: Protocol Last Admin: 05/15/17 09:25 Dose: 100 mls/hr Latanoprost (Xalatan Opht) 0 ml OU HS [facility] Last Admin: 05/14/17 21:20 Dose: 2.5 ml Levalbuterol HCl (Xopenex) 1.25 mg IH [id number] [facility] Last Admin: 05/15/17 13:37 Dose: 1.25 mg Methylprednisolone (Solu-Medrol) 30 mg IVP Q12 [facility] Last Admin: 05/15/17 09:24 Dose: 30 mg Non-Formulary Medication (Ezetimibe/Simvastatin [Vytorin 10-20 Mg Tablet]) 1 tab PO DAILY [facility] Last Admin: 05/15/17 09:22 Dose: Not Given Ondansetron HCl (Zofran Inj) 4 mg IVP Q6H PRN PRN Reason: Nausea/Vomiting Oxycodone/Acetaminophen (Percocet 5/325 Mg Tab) 1 tab PO Q4H PRN PRN Reason: Pain, moderate (4-7) Stop: 05/16/17 16:05 Pantoprazole Sodium (Protonix Ec Tab) 40 mg PO 0630 [facility] Last Admin: 05/15/17 06:09 Dose: 40 mg Promethazine HCl/Codeine (Phenergan/Codeine Oral Syrup) 5 ml PO TID [facility] Last Admin: 05/15/17 14:35 Dose: 5 ml Physical Exam - Constitutional Appears: No Acute Distress, Cachectic, Chronically Ill - Head Exam Head Exam: ATRAUMATIC, NORMAL INSPECTION, NORMOCEPHALIC - Eye Exam Eye Exam: EOMI, Normal appearance, PERRL. absent: Scleral icterus Pupil Exam: NORMAL ACCOMODATION - ENT Exam ENT Exam: Mucous Membranes Moist - Neck Exam Neck exam: Positive for: Normal Inspection - Respiratory Exam Respiratory Exam: Clear to Auscultation Bilateral, NORMAL BREATHING PATTERN. absent: Decreased Breath Sounds, Prolonged Expiratory Phase, Rales, Rhonchi, Wheezes, Respiratory Distress, Stridor - Cardiovascular Exam Cardiovascular Exam: REGULAR RHYTHM, RRR, +S1, +S2. absent: Bradycardia, Tachycardia - GI/Abdominal Exam GI & Abdominal Exam: Normal Bowel Sounds, Soft. absent: Distended, Firm, Guarding, Rigid, Tenderness - Extremities Exam Extremities exam: Positive for: normal inspection. Negative for: pedal edema - Back Exam Back exam: NORMAL INSPECTION - Neurological Exam Neurological exam: Alert, Oriented x3, Reflexes Normal - Psychiatric Exam Psychiatric exam: Normal Affect, Normal Mood - Skin Skin Exam: Dry, Intact, Normal Color Results - Vital Signs Recent Vital Signs: Last Vital Signs Temp 98.1 F 05/15/17 06:00 Pulse 84 05/15/17 09:24 Resp 20 05/15/17 06:00 BP 113/70 05/15/17 09:24 Pulse Ox 100 05/15/17 06:00 - Labs Result Diagrams: 05/15/17 09:40 05/15/17 09:40 Labs: Laboratory Results - last 24 hr 05/15/17 05/15/17 09:40 09:40 WBC 22.2 H D RBC 3.79 Hgb 10.5 L Hct 33.7 L MCV 88.9 MCH 27.7 MCHC 31.2 RDW 17.2 H Plt Count 206 MPV 9.0 Gran % 91.9 H Lymph % (Auto) 4.3 L [place] % (Auto) 3.8 Eos % (Auto) 0.0 L Baso % (Auto) 0.0 Gran # 20.42 H Lymph # 1.0 L [place] # 0.9 H Eos # 0.0 Baso # 0.01 Sodium 140 Potassium 4.0 Chloride 104 Carbon Dioxide 31 Anion Gap 9 L BUN 23 H Creatinine 0.5 L Est GFR ( Amer) > 60 Est GFR (Non-Af Amer) > 60 Random Glucose 265 H Calcium 9.2 Phosphorus 2.5 Magnesium 2.0 Total Bilirubin 0.8 AST 28 ALT 42 Alkaline Phosphatase 219 H Troponin I 0.33 H* D NT-Pro-B Natriuret Pep 630 H Total Protein 6.0 Albumin 3.2 Globulin 2.8 Albumin/Globulin Ratio 1.2 Assessment & Plan - Assessment and Plan (Free Text) Assessment: Patient is an 81 yo female with past medical history of HTN, dyslipidemia, anxiety, h/o NSTEMI s/p cardiac cath with 100% occlusion of LAD with good collateral with RCA which is medically managed without a stent, recently diagnosed with stage 4 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 Reviewed prior scans with findings below. CT LIVER on 05/04/17- Liver lesions, 24 x 52 mm mass in the lateral segment of the left lobe and the right lobe of the liver near the dome. There is a 2.4 cm mass in the spleen which measures 80 Hounsfield units in density postcontrast and 30 Hounsfield units precontrast. This is also suspicious for metastatic lesion. There is an enlarged lymph nodes seen near the celiac axis adjacent to the stomach measuring 19 mm in diameter. PULM ANGIOGRAM- 04/29/17- Complex primarily cystic mass with Hounsfield unit values ranging between the 11 and 32 which appears to be contiguous with the descending aorta left main pulmonary artery, lobar branches. The mass circumferentially impresses upon the left mainstem bronchus. The mass is difficult to quantify as it is somewhat diffuse, infiltrative. At the level of the pulmonary arteries and left mainstem bronchus the mass measures 6 x 6.9 x 3.5 cm. The mass also displays contiguity with the wall of the mid esophagus. CT HEAD 05/04/17 No evidence of metastasis. Plan: - Genomic testing report revealed NSCLC with kras positive, - Patient will need PDL1 testing to be sent - Patient is not a surgical candidate for tumor removal at this time - Treatment approach would be bronchi and stenting versus radiation - Will discuss with Dr Razo, the access liaison for possibility of bronchi and stenting. - Continue present management as per primary team, cardiology and pulm. Patient seen, examined and case discussed with Dr Jain. - Date & Time Date: 05/15/17 Time: 15:40
--- NOTE | 2017-05-15 19:07 | PN ---
DATE: SUBJECTIVE: The patient is an 81-year-old, seen and examined, sitting in chair. Eating her lunch. Seems to be doing better. Less lethargic. Appetite is better. No nausea. No vomiting. No diarrhea. PHYSICAL EXAMINATION: VITAL SIGNS: She is afebrile, pulse 84, respirations 20, blood pressure 113/70. LUNGS: Bilateral fair airflow with few expiratory rhonchi in the left upper lung region. HEART: S1 and S2 is audible. ABDOMEN: Soft, nontender. No rebound. No guarding. NEUROLOGIC: The patient is awake, alert and oriented, communicative. Bilateral legs +1 edema. LABORATORY DATA: WBC is 22.2, hemoglobin 10.5, hematocrit 33.7, platelets of 206. Chemistry: Sodium 140, potassium 4.0, chloride 104, CO2 of 31, BUN 23, creatinine 0.5, blood sugar was 265 and 213, troponin is 0.33. Blood culture and urine cultures are negative. ASSESSMENT: Chronic obstructive pulmonary disease exacerbation, mild congestive heart failure, stable. PLAN: I will continue the patient on diltiazem, doxycycline, she is on nebulizer treatment, cefepime. She is on Percocet. I will cut down her steroids. Discharge plan for either tomorrow or Monday depending on her condition in the a.m. She is clinically stable. She did have positive troponin, so we will continue her on telemetry. Demarcus Proctor MD
[2017-05-15] MEDS: Latanoprost 2.5 ml Opht Soln OU SCH (21:41)
[2017-05-16] MEDS: Levalbuterol 1.25 MG/3 ML Inhal Soln UD IH SCH ×4 (01:21→19:34)
--- NOTE | 2017-05-16 02:11 | PN ---
DATE: 05/15/2017 LOCATION: The patient is in room 374, bed 2. REASON FOR CONSULTATION: Shortness of breath, elevated troponin, and coronary artery disease. SUBJECTIVE: The patient's shortness of breath has improved as compared to before. Denies any chest pain. Denies any palpitation. PHYSICAL EXAMINATION: VITAL SIGNS: Blood pressure 137/83, respirations 20, pulse 80, and temperature 97.3. HEENT: Head is normocephalic. Eyes, pupils normal. Conjunctivae slightly pale. NECK: JVP low. Carotids equal. THORAX: AP diameter normal. LUNGS: Show no rales. Few wheezing sounds. CARDIOVASCULAR: S1 and S2. ABDOMEN: Soft and nontender. No organomegaly. Bowel sounds are normal. EXTREMITIES: No clubbing. No cyanosis. LABORATORY DATA: WBC 22.2, hemoglobin 10.5, hematocrit 33.7, and platelets 206. Sodium 140, potassium 4.0, BUN 23, and creatinine 0.5. Calcium 9.2, phosphorus 2.5, magnesium 2.0. Initial troponin 0.90, second one 1.43, and third one 0.33. The patient had cardiac cath on 05/04/2017, showed LV ejection fraction of 55% to 60%. Total occlusion of LAD, which was very well collateralized from RCA. Attempt was done to try to open LAD, but it was highly calcified, so it was not opened. The patient has similar findings on cardiac cath of 12/23/2015. DIAGNOSES: Respiratory tract infection, exacerbation of chronic obstructive pulmonary disease, left upper lung mass showing poorly differentiated adenocarcinoma, hypertension, coronary artery disease, chronic obstructive pulmonary disease, slight troponin elevation was also present on the previous admission and is also present on this admission, whereas cardiac catheterization done on 05/04/2017 showed no change as compared to 12/23/2015. PLAN: The patient is on diltiazem CD 120 p.o. daily, DuoNeb hand nebulizer therapy, aspirin 81 mg daily p.o. daily, Vytorin 10/20 once a day, cefepime 1 g IV q. 12 hours, methylprednisolone 30 mg IV q. 12 hours, atenolol 25 mg daily. Atenolol has been replaced in place of Lopressor because the patient had sinus tachycardia. Slight troponin elevation was also present on the previous admission. Plan is to continue to treat the patient medically. The patient has no anginal symptoms. No evidence of clinically CHF at this moment, and she is getting better with pulmonary therapy, so we will continue Toprol XL 25 mg daily, cefepime 1 g IV q.12 hours, Vibramycin 100 mg IV q. 12 hours. Cardizem CD has been changed to 120 mg p.o. daily. We will follow. Mara Hidalgo MD
[2017-05-16] MEDS: Pantoprazole 40 mg EC Tab PO SCH (05:36)
[2017-05-16 07:08] LABS: BASO # 0.01 K/mm3 (0.0-2.0); BASO % 0.1 % (0.0-3.0); GRAN # 17.2 (1.4-6.5); GRAN % 92.7 % (50.0-68.0); LYMPH # 0.3 (1.2-3.4); LYMPH % 1.6 % (22.0-35.0); MEAN CELL VOLUME 88.6 fl (80.0-105.0); MEAN CORPUSCULAR HGB CONC 31.6 g/dl (31.0-37.0); MEAN PLATELET VOLUME 9.2 fl (7.0-11.0); MONO % 5.6 % (1.0-6.0); RED CELL DISTRIBUTION WIDTH 17.1 % (11.5-14.5); WHITE BLOOD COUNT 18.6 10^3/ul (4.5-11.0)
[2017-05-16] MEDS: Budesonide 0.5 mg/2 ml Inhal Susp UD IH SCH ×2 (07:39→19:34)
--- NOTE | 2017-05-16 07:59 | PN ---
DATE: SUBJECTIVE: The patient appears comfortable this morning. She is not short of breath at rest. OBJECTIVE: VITAL SIGNS: Temperature is 97.6, pulse is 88, respirations are 19, and blood pressure is 129/55. Oxygen saturation on nasal cannula is 94-97%. HEENT: Normocephalic, atraumatic. No JVD. CARDIOVASCULAR: Systolic ejection murmur at the lower left sternal border. No S3 gallop. LUNGS: Improved breath sounds at the bases. Minimal wheezing and rhonchi are appreciated bilaterally - much decreased overall. EXTREMITIES: Mild edema. No cyanosis, no clubbing. Calves are nontender to palpation. GASTROINTESTINAL: Abdomen is soft, nontender, and nondistended. Bowel sounds are positive. SKIN: No acute rash. NEUROLOGIC: Limited at the present time. IMPRESSION: 1. Lethargy - resolved. 2. Leukocytosis. 3. Recurrent bronchitis. 4. Advanced chronic obstructive pulmonary disease. 5. Advanced adenocarcinoma of the lung. 6. Recent myocardial infarction. Increased troponin. 7. Mild anemia. PLAN: The patient appears comfortable this morning. She is not short of breath at rest. She does state that she was ambulating yesterday and felt fine. She states to feeling much much better overall. On physical exam, her bronchospasm continues to slowly resolve. In addition, the oxygen saturation on nasal cannula is 94-97%. I will continue the current nebulizer treatments and low-dose intravenous steroids (decreased yesterday) for now. The patient also remains on antibiotic therapy. There are no temperatures noted. Repeat a.m. labs are pending. Input by Cardiology is also noted. The troponin is now trending downward. Clinical status of the patient is significantly improved - compared to the initial presentation. However, unfortunately, the future status/prognosis for this patient does remain poor. I will discuss the above with Dr. Proctor. Donato Razo MD MTDD
--- NOTE | 2017-05-16 10:09 | PQF SEPSIS ---
This form is a permanent part of the medical record Dr. Proctor, Your H&P noted "probably sepsis", however subsequent documentation did not follow. Please clarify if sepsis was present on admission or ruled out after study. Clarification of your documentation is requested to better reflect the severity of illness and intensity of treatment of your patient. Indicators present [] Temp < 96.8 or > 100.4 [x] WBC count > 12,000/mm3 or <000/mm3 or 10% immature neutrophils [] Heart Rate > 90 [x] Respiratory Rate > 20 [] Fever or hypothermia [] Chills [] Positive blood cultures [] Hypotension [] Metabolic acidosis (Elevated lactate level, anion gap or reduced blood pH) [] Acute confusion /Altered Mental Status [] Shock [] Other: [] Location in the medical record that reflects the above clinical findings: [] Treatment Provided: [] PHYSICIAN'S RESPONSE Based on your medical judgment of the clinical indicators outlined above, are you treating this patient for a known or suspected: [] Sepsis / Septicemia Please specify organism if known [] [x] SIRS (Systemic Inflammatory Response Syndrome) [] Severe Sepsis (Sepsis with Associated Organ Dysfunction) [] Fever of Unknown Origin [] Other, please indicate: [] [] If Unable to Determine, please check the box, sign and date. Present On Admission (POA) Indicator: [x] Present at the time of admission [] Not present at the time of admission [] Clinically Undetermined In responding to this query, please exercise your independent professional judgment. The fact that a question is asked does not imply that any particular answer is desired or expected. Thank you for your clarification on this documentation. If you have any questions please call:[ ] * Thank you, [ ]Gabriela Mcrae [id number] salesperson [employer]
[2017-05-16] MEDS: Promethazine/Cod 6.25mg-10mg/5ml Syr UD PO SCH ×3 (10:32→17:28)
[2017-05-16] MEDS: MethylPREDNISolone 40 mg Vial IVP SCH ×2 (10:32→22:18)
[2017-05-16] MEDS: Non Formulary Medication (Ezetimibe/Simvastatin [Vytorin 10-20 Mg Tablet] 1 TAB) PO SCH (10:33)
[2017-05-16] MEDS: diltiaZEM 120 mg/24 Hours CD Cap PO SCH (10:33)
[2017-05-16] MEDS: Cefepime 1gm in NS 100ml 1 GM/100 ML BAG IVPB SCH (13:19)
--- NOTE | 2017-05-16 15:01 | PN ---
DATE:05/16/2017 REASON FOR CONSULTATION AND FOLLOWUP: Shortness of breath, coronary artery disease 1-vessel, and positive troponins. SUBJECTIVE: Denies any chest pain. Family is at the bedside. Mild shortness of breath. OBJECTIVE: GENERAL: Not in apparent distress, mild short of breath and getting oxygen. VITAL SIGNS: Temperature afebrile, heart rate 95, and blood pressure 149/62. HEENT: PERRLA. Extraocular muscles intact. NECK: Supple. No carotid bruits or thyromegaly. CHEST: Clear to auscultation. HEART: S1 and S2. Regular. ABDOMEN: Soft. EXTREMITIES: Clubbing and cyanosis negative. LABORATORY DATA: Blood workup as follows: WBC 18.3, hemoglobin 9.8, hematocrit 31, and platelet count 173. Chemistry showed sodium 140, potassium 4.1, chloride 104, carbon dioxide 31, anion gap of 9, BUN 23, and creatinine 0.9. Troponin 0.03. IMPRESSION: An 81-year-old female with past medical history significant for chronic obstructive pulmonary disease, history of 1-vessel coronary artery disease, left anterior descending artery totally occluded, very well collateralized from right coronary artery, status post cardiac catheterization on last admission on 05/04/2017, which is unchanged from 2007 cardiac catheterization 1-vessel coronary artery disease with a very well collateralized from right coronary artery. Medical treatment recommended. Advanced chronic obstructive pulmonary disease, poorly differentiated adenocarcinoma, inoperable. In the past attempt of left anterior descending was tried for percutaneous transluminal coronary angioplasty, was unsuccessful. At this time, repeat catheterization was done and unchanged from 2007. Medical treatment recommended. The positive troponin is most likely secondary to demand and supply mismatch, but no change in the anatomy from before. RECOMMENDATIONS: Aggressive medical treatment and putting on nitrate beta-reggie as blood pressure is tolerated, history of chronic atrial fibrillation, admitted with shortness of breath and elevated troponin secondary to demand and supply mismatch and has history of elevated troponin essentially unchanged on cardiac catheterization on 12/22/2006. Continue beta-reggie as tolerated. Continue nitrate. Aggressive treatment for COPD. The patient is continued on atenolol 25 last time we started. We will add low dose of Imdur as blood pressure is tolerated. Also suggest DVT prophylaxis if H&H remained stable, but I saw the patient, dropping hemoglobin slowly, admitted with 12, now it is 9.8, so we will hold off for now Lovenox, but if H&H remained stable, consider DVT prophylaxis. We will follow with you. Thank you Dr. Proctor for providing the opportunity in taking care of the patient, Valeria Mayen. Mara Norman MD
--- NOTE | 2017-05-16 21:32 | PN ---
DATE: SUBJECTIVE: The patient is 81-years old, seen and examined, doing lot better, less nausea, eating and tolerating, complaining of cough. PHYSICAL EXAMINATION: VITAL SIGNS: She is afebrile. Pulse 75, respirations 18, blood pressure 149/62. LUNGS: Bilateral fair airflow. No rhonchi or crackles. HEART: S1 and S2 audible. ABDOMEN: Soft and nontender. Obese. No hepatosplenomegaly. NEUROLOGIC: The patient is awake, alert, oriented, and able to communicate. LABORATORY DATA: WBC is 18.6, hemoglobin 9.8, hematocrit 31, and platelets of 173. Chemistry; sodium 140, potassium 4.0, chloride 104, CO2 of 31, BUN 23, creatinine 0.5, and blood sugar of 265. ASSESSMENT: 1. Altered mental status. 2. Left upper lung mass with poorly differentiated adenocarcinoma of the lung. 3. Coronary artery disease, recent cardiac catheterization. 4. Exertional dyspnea and hypoxia. PLAN: The patient will be discharged home on p.o. doxycycline. Continue nebulizer treatment. Oxygen will be arranged in the morning, so will be nebulizer. She will be discharged home in a.m. Demarcus Proctor MD
[2017-05-16] MEDS: Latanoprost 2.5 ml Opht Soln OU SCH (22:18)
[2017-05-17] MEDS: Levalbuterol 1.25 MG/3 ML Inhal Soln UD IH SCH ×3 (02:40→13:28)
[2017-05-17] MEDS: Pantoprazole 40 mg EC Tab PO SCH (05:48)
[2017-05-17 06:24] LABS: BASO # 0.01 K/mm3 (0.0-2.0); BASO % 0.1 % (0.0-3.0); GRAN # 16.76 (1.4-6.5); GRAN % 93.6 % (50.0-68.0); HEMATOCRIT 29.3 % (36.0-48.0); LYMPH # 0.4 (1.2-3.4); LYMPH % 2.2 % (22.0-35.0); MEAN CELL VOLUME 88.3 fl (80.0-105.0); MEAN CORPUSCULAR HEMOGLOBIN 27.7 pg (25.0-35.0); MEAN CORPUSCULAR HGB CONC 31.4 g/dl (31.0-37.0); MEAN PLATELET VOLUME 9.5 fl (7.0-11.0); MONO # 0.7 (0.1-0.6); MONO % 4.1 % (1.0-6.0); RED CELL DISTRIBUTION WIDTH 17.2 % (11.5-14.5); WHITE BLOOD COUNT 17.9 10^3/ul (4.5-11.0)
[2017-05-17 06:32] VITALS: BP 131/72; PULSE 86; RESP 19; TEMP 98.5; O2SAT 97
--- NOTE | 2017-05-17 07:03 | PN ---
DATE: 05/17/2017 SUBJECTIVE: The patient appears very comfortable this morning. She is not short of breath at rest. PHYSICAL EXAMINATION: VITAL SIGNS: Temperature is 98,5, pulse 86, respirations 19, blood pressure 131/72. Oxygen saturation on nasal cannula is 97%. HEENT: Normocephalic, atraumatic. NECK: No JVD. CARDIOVASCULAR: Systolic ejection murmur at the lower left sternal border. No S3 gallop. LUNGS: Improved breath sounds at the bases. Minimal/less rhonchi. No wheezing this morning. EXTREMITIES: Mild edema. No cyanosis, no clubbing. Calves are nontender to palpation. GASTROINTESTINAL: Abdomen is soft, nontender and nondistended. Bowel sounds are positive. SKIN: No acute rash. NEUROLOGIC: Limited at the present time. IMPRESSION: 1. Lethargy-resolved. 2. Leukocytosis-resolving. 3. Recurrent bronchitis. 4. Advanced chronic obstructive pulmonary disease. 5. Advanced adenocarcinoma of the lung. 6. Recent myocardial infarction. Increased troponin. 7. Mild anemia. PLAN: The patient appears very comfortable this morning. She is not short of breath at rest. The patient states that she was ambulating around yesterday and did not feel short of breath. She does state to feeling much, much better overall. On physical exam, her bronchospasm continues to resolve. In addition, the alveolar-arterial gradient also continues to resolve. Oxygen saturation on nasal cannula this morning is 97%. I will continue the current nebulizer treatments and decrease the intravenous steroids this morning. The patient remains on antibiotic therapy. There are no temperatures noted. The leukocytosis has improved/decreased on yesterday's laboratory exams. We are awaiting repeat a.m. labs (this morning). Clinical status of the patient is significantly improved-compared to the initial presentation. However, unfortunately, the overall status/prognosis for this patient does remain poor. All are aware. I will discuss the above with Dr. Proctor. Donato Razo MD [facility]
--- NOTE | 2017-05-17 07:42 | CP.PCM.PN ---
Subjective - Date & Time of Evaluation Date of Evaluation: 05/17/17 Time of Evaluation: 07:00 - Subjective Subjective: Heme/onc progress note for Dr Jain Patient reports she's feeling better. States the cough is still there, but the shortness of breath has improved. Denies fever, chills, n/v/d. Objective - Vital Signs/Intake and Output Vital Signs (last 24 hours): Temp Pulse Resp BP Pulse Ox 98.5 F 86 19 131/72 97 05/17/17 06:00 05/17/17 06:00 05/17/17 06:00 05/17/17 06:00 05/17/17 06:00 Intake and Output: 05/17/17 05/17/17 06:59 18:59 Intake Total 120 Balance 120 - Medications Medications: Current Medications Acetaminophen (Tylenol 325mg Tab) 650 mg PO Q6H PRN PRN Reason: Fever >100.4 F Albuterol/Ipratropium (Duoneb 3 Mg/0.5 Mg (3 Ml) Ud) 3 ml IH Q2H PRN PRN Reason: Shortness of Breath Last Admin: 05/14/17 13:39 Dose: 3 ml Alprazolam (Xanax) 0.5 mg PO PRN PRN; Protocol PRN Reason: Anxiety Aspirin (Ecotrin) 81 mg PO DAILY [facility] Last Admin: 05/16/17 10:33 Dose: 81 mg Atenolol (Tenormin) 25 mg PO DAILY [facility] Last Admin: 05/16/17 10:32 Dose: 25 mg Budesonide (Pulmicort Respules) 0.5 mg IH [id number] [facility] Last Admin: 05/16/17 19:34 Dose: 0.5 mg Diltiazem HCl (Cardizem Cd) 120 mg PO DAILY [facility] Last Admin: 05/16/17 10:33 Dose: 120 mg Doxycycline Hyclate 100 mg/ (Sodium Chloride) 100 mls @ 100 mls/hr IVPB Q12 ERMA PRN Reason: Protocol Last Admin: 05/16/17 22:18 Dose: 100 mls/hr Isosorbide Mononitrate (Imdur Er) 30 mg PO DAILY [facility] Last Admin: 05/16/17 11:22 Dose: 30 mg Latanoprost (Xalatan Opht) 0 ml OU HS [facility] Last Admin: 05/16/17 22:18 Dose: 2.5 ml Levalbuterol HCl (Xopenex) 1.25 mg IH [id number] [facility] Last Admin: 05/17/17 02:40 Dose: 1.25 mg Methylprednisolone (Solu-Medrol) 20 mg IVP Q12 [facility] Non-Formulary Medication (Ezetimibe/Simvastatin [Vytorin 10-20 Mg Tablet]) 1 tab PO DAILY [facility] Last Admin: 05/16/17 10:33 Dose: Not Given Ondansetron HCl (Zofran Inj) 4 mg IVP Q6H PRN PRN Reason: Nausea/Vomiting Pantoprazole Sodium (Protonix Ec Tab) 40 mg PO 0630 [facility] Last Admin: 05/17/17 05:48 Dose: 40 mg Promethazine HCl/Codeine (Phenergan/Codeine Oral Syrup) 5 ml PO TID [facility] Last Admin: 05/16/17 17:28 Dose: 5 ml - Labs Labs: 05/17/17 06:00 05/15/17 09:40 PT 16.3 SECONDS (9.4-12.5) H 05/13/17 10:15 INR 1.47 (0.93-1.08) H 05/13/17 10:15 APTT 31.5 Seconds (25.1-36.5) 05/13/17 10:15 - Constitutional Appears: No Acute Distress, Cachectic, Chronically Ill - Head Exam Head Exam: ATRAUMATIC, NORMAL INSPECTION, NORMOCEPHALIC - Eye Exam Eye Exam: Normal appearance, PERRL Pupil Exam: NORMAL ACCOMODATION - ENT Exam ENT Exam: Mucous Membranes Moist, Normal Exam - Neck Exam Neck Exam: Normal Inspection - Respiratory Exam Respiratory Exam: Clear to Ausculation Bilateral, NORMAL BREATHING PATTERN. absent: Rales, Rhonchi, Wheezes, Respiratory Distress, Stridor - Cardiovascular Exam Cardiovascular Exam: REGULAR RHYTHM, +S1, +S2. absent: Bradycardia, Tachycardia , Murmur - GI/Abdominal Exam GI & Abdominal Exam: Soft, Normal Bowel Sounds. absent: Distended, Firm, Guarding, Rigid, Tenderness - Extremities Exam Extremities Exam: Full ROM, Normal Capillary Refill, Normal Inspection. 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 Plan: - Patient to get PET scan as outpatient, Dr Jain gave patient the script. - To be discharged today with home oxygen and nebulizers. - To follow up with Dr Jain as outpatient in 2 weeks. Patient seen, examined and case discussed with Dr Jain.
--- NOTE | 2017-05-17 08:14 | CON ---
DATE: 05/16/2017 LOCATION: The patient is in room 374, bed 2. REASON FOR CONSULTATION: Followup. HISTORY OF PRESENT ILLNESS: This is an 81-year-old white female, who was recently diagnosed to have locally advanced non-small carcinoma of the lung with documented liver metastasis and retrocrural metastasis as well on the staging CAT scans done after the initial discovery of the lung mass. The patient also had non-ST elevation [place] for which she was treated medically with medications. There were no significant changes on the cardiac cath. The patient is being closely monitored by Dr. Norman and his colleague, Dr. Hidalgo. The patient was recently in the hospital, discharged and was readmitted with worsening shortness of breath, and the patient had not yet received oxygen at home or her supplies with nebulizer, and since she was very symptomatic, the patient choose to come back to the hospital. The patient denies any chest pain, daughter is at the bedside. She has mild shortness of breath. Overall, feeling better now, compared to the date of admission on 05/13/2017. The patient denies any history of fever or chills. Has coughing, but no hemoptysis. No chills. No significant headaches at this point in time. PHYSICAL EXAMINATION: GENERAL: The patient is awake, alert and oriented, in no acute or significant distress at this time. The patient is not in any acute pain. She has mild shortness of breath and is on oxygen therapy. VITAL SIGNS: The patient is afebrile, T-max is 98.4, heart rate is 95, blood pressure is 149/62. HEENT: Head is normocephalic, atraumatic. Conjunctivae pale. Sclerae are anicteric. Pupils are equally reactive to light and accommodation. Examination of the oropharynx reveals no oropharyngeal lesions. Tongue is moist. No ulcerations are noted. NECK: Supple. There is no adenopathy. No carotid bruits heard. No jugular venous distention is noted. LUNGS: Relatively clear to percussion and auscultation. HEART: Reveals S1 and S2 to be normal, regular. No gallop or murmur is heard. ABDOMEN: Soft, nontender. Liver and spleen not palpable. There is no rebound, rigidity or guarding noted. EXTREMITIES: Reveal no cyanosis, clubbing or edema. There is no evidence of adenopathy in the neck, axilla, or groin. AND RECTAL: Deferred. NEUROLOGIC: Reveals no focalizing signs. Plantars are flexors. LABORATORY DATA: Reveals a white count of 18.3, hemoglobin 9.8, hematocrit 31, platelet count of 173,000. Chemistry reveals sodium of 140, K is 4.1, chloride is 104, CO2 of 31, annion gap of 9, BUN of 23, creatinine of 0.9, troponin is 0.03. I reviewed the pathology reports in detail with the patient and her daughter by her bedside. Also reviewed the CT of the chest, liver CT, and the CAT scan reports of the patient as well. CAT scan of the chest protocol on 04/29/2017 reviewed the complex primary cystic mass with onset values ranging between 11 and 32. Appears contiguous to the descending aorta, left main pulmonary artery and lobar branches. The mass circumferentially compresses the upper left main stem bronchus. Mass is difficult to quantify as it is somewhat diffuse and infiltrative. Level of pulmonary arteries and left main stem bronchus, mass measures 6 x 6.9 x 3.5 cm. Mass also appears contiguity with the wall of the mid oesophagus, which is of concern to us. There are peripheral infiltrates in multiple segments of the right lower lobe and left lower lobe. The patient also had a CT of the liver done using a triple phase liver protocol that was done on 05/04/2017 that shows two separate lesions in the liver consistent with metastatic disease, one seen in the portal venous phase, series V; on image 22, there is a 24 x 52 mm mass in the lateral segment of the left lobe. There is an another 18 mm lesion in the right lobe as well near the dome of the liver seen best on image VII series V. The patient also has retroperitoneal nodes as evidence in the retrocrural. There is an enlarged lymph node seen in the celiac axis adjacent to the stomach measuring 19 mm and is seen on image 18, series V. Smaller adjacent nodes are also seen in the retroperitoneal area. ASSESSMENT NOTES AND PLAN: Detailed discussion with the patient's daughter by her side and the patient. I told her at this point in time, the patient has stage IV non-small cell lung carcinoma, poorly differentiated adenocarcinoma. Various molecular testings have been done. 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 EGFR is not mutated. ALK gene, YRN gene are negative at this time. PD-L1 is still pending. I told her at this point, if the PD-L1 is positive and if it is more than 20%, the patient may be a candidate for single agent Keytruda or Opdivo. If, on the other hand, the patient does not express any PD-L1, we may have to assess her for systemic chemotherapy. In view of the fact that she has a large central lesion, question about getting local RT is also raised, especially with occlusive compression on the left mainstem bronchus, which maybe contributing to her coughing and the shortness of breath. The patient, since she has recent non-ST elevation myocardial infarction, may not be a candidate for any other procedures such as placement of a stent, so we will have to wait on that at this point till we get some feedback from the cut off machine unloader and the floor layer helper. I told the patient that we will try to set the PET-CT as an outpatient. She also should probably plan to get home oxygen and home nebulizer machine setup before planned discharge. Once the PET-CT is available, since we already know she has metastatic cancer, we wait for the PD-L1 testing before deciding, which chemotherapy regimen should be started on if she was on chemotherapy or if she started on PD-L1 based monoclonal antibiotic therapy, such as Opdivo or pembrolizumab. All questions asked by the patient and the daughter was answered to the best of my ability. Time spent with the patient at least 1 hour. Ruddy Jain MD
[2017-05-17] MEDS: Budesonide 0.5 mg/2 ml Inhal Susp UD IH SCH (08:18)
[2017-05-17] MEDS: Promethazine/Cod 6.25mg-10mg/5ml Syr UD PO SCH ×2 (09:02→14:38)
[2017-05-17] MEDS: diltiaZEM 120 mg/24 Hours CD Cap PO SCH (09:02)
[2017-05-17] MEDS: Non Formulary Medication (Ezetimibe/Simvastatin [Vytorin 10-20 Mg Tablet] 1 TAB) PO SCH (09:03)
[2017-05-17] MEDS ORDERED: MethylPREDNISolone 40 mg Vial IVP SCH (10:00)
--- NOTE | 2017-05-17 18:18 | DS ---
HISTORY OF PRESENT ILLNESS: The patient is an 81-year-old, seen and examined. Sitting in chair. Anxious to go home. No nausea or vomiting. No diarrhea. Eating and tolerating. Has shortness of breath. Complains of cough. PHYSICAL EXAMINATION: VITAL SIGNS: She is afebrile, pulse 86, respirations 20, blood pressure 131/72, pulse ox is 97% upon ambulating and goes down to 84% to 87%. LUNGS: Bilateral fair airflow. Few soft crackles at left upper lung region. HEART: S1 and S2 audible. ABDOMEN: Soft and nontender. No rebound. No guarding. NEUROLOGIC: The patient is awake, alert, oriented, communicative and ambulatory. LABORATORY EXAM: WBC is 17.9, hemoglobin 9.2, hematocrit 29.3 and platelets of 161. Chemistry; troponin was 0.33. ASSESSMENT: 1. Left upper lung mass and that is the poorly differentiated adenocarcinoma. 2. Hypertension. 3. Bilateral knee osteoarthritis. 4. Coronary artery disease. 5. She has stage IV adenocarcinoma of lung with metastasis to the liver and the spleen. PLAN: The patient is going to be discharged today. She home oxygen. She has nebulizer machine. She already finished her course of antibiotics given by Dr. Razo and she still has prednisone at home. She will resume her other medication that is Advair. She will continue Vytorin, aspirin and Cardizem. She will follow up with Dr. Jain who will treat her from oncology point of view as outpatient. Demarcus Proctor MD
--- NOTE | 2017-05-17 23:35 | PN ---
DATE: 05/17/2017 LOCATION: The patient is in room 374, bed 2. REASON FOR CONSULTATION AND FOLLOWUP: Shortness of breath, coronary artery disease one-vessel, and positive troponin. SUBJECTIVE: The patient is sitting comfortably in chair without chest pain, shortness of breath, or palpitations. PHYSICAL EXAMINATION: VITAL SIGNS: Blood pressure 116/64, respirations 21, pulse 78, and temperature 98.4. HEENT: Head is normocephalic. Eyes, pupils normal. Conjunctivae slightly pale. NECK: JVP low. Carotids equal. THORAX: AP diameter normal. LUNGS: No rales. CARDIOVASCULAR: S1 and S2. ABDOMEN: Soft and nontender. No organomegaly. EXTREMITIES: No clubbing. No cyanosis. LABORATORY DATA: WBC 17.9, hemoglobin 9.2, hematocrit 29.3, and platelets 161. Sodium 140, potassium 4.0, BUN 23, and creatinine 0.5. Troponin 0.33, earlier troponin 0.90 and 1.43, and now 0.33. DIAGNOSES: Exacerbation of chronic obstructive pulmonary disease, history of one-vessel coronary artery disease, left anterior descending artery totally occluded, very well collateralized from right coronary artery, status post cardiac catheterization on last admission on 05/04/2017, which is unchanged from 2007 cardiac catheterization, poorly differentiated adenocarcinoma of the lung, which is inoperable. The patient's slight troponin elevation most likely secondary to demand and supply mismatch and no change between the 2 cardiac catheterizations, totally occluded left anterior descending is well collateralized from the right. PLAN: The patient will continue present therapy and we will follow. Mara Hidalgo MD
== END 2017-05-17 17:17 | disposition home or self-care (01) | DRG 191 ==
LOC: ED 09:40 → ERH 12:17 → 3RSO 14:32
PROVIDERS: ADMIT Internal Medicine; ATTEND Internal Medicine
DX: J44.1 Chronic obstructive pulmonary disease with (acute) exacerbation (principal); C78.7 Secondary malignant neoplasm of liver and intrahepatic bile duct; C78.89 Secondary malignant neoplasm of other digestive organs; I11.0 Hypertensive heart disease with heart failure; R65.10 Systemic inflammatory response syndrome (SIRS) of non-infectious origin without acute organ dysfunction; I25.82 Chronic total occlusion of coronary artery; C34.92 Malignant neoplasm of unspecified part of left bronchus or lung; I50.9 Heart failure, unspecified; D64.9 Anemia, unspecified; E78.5 Hyperlipidemia, unspecified; E78.00 Pure hypercholesterolemia, unspecified; H40.9 Unspecified glaucoma; I25.10 Atherosclerotic heart disease of native coronary artery without angina pectoris; K21.9 Gastro-esophageal reflux disease without esophagitis; M17.0 Bilateral primary osteoarthritis of knee; R09.02 Hypoxemia; Z79.82 Long term (current) use of aspirin; Z85.118 Personal history of other malignant neoplasm of bronchus and lung; Z87.01 Personal history of pneumonia (recurrent); Z87.891 Personal history of nicotine dependence; Z90.49 Acquired absence of other specified parts of digestive tract; Z96.653 Presence of artificial knee joint, bilateral

== ENCOUNTER 2017-06-10 10:24 | Inpatient (IN) | payer MEDICARE, OTHER ==
[2017-06-10 10:25] VITALS: BMI 30.1
[2017-06-10] MEDS ORDERED: Albuterol-Ipratrop 3 mg / 0.5 (3 ml) UD ONE (10:35)
[2017-06-10] MEDS ORDERED: Morphine 2 mg/ml ISec IVP STA (10:37)
[2017-06-10] MEDS ORDERED: Ipratropium 0.02% Inhal Soln (0.5 mg/2.5 ml) UD IH STA (10:37)
[2017-06-10] MEDS ORDERED: Aspirin 325 mg EC Tablets PO STA (10:38)
[2017-06-10 10:51] LABS: BASO # 0.06 K/mm3 (0.0-2.0); BASO % 0.2 % (0.0-3.0); GRAN # 24.17 (1.4-6.5); GRAN % 84.8 % (50.0-68.0); HEMATOCRIT 35.6 % (36.0-48.0); LYMPH # 2.7 (1.2-3.4); LYMPH % 9.5 % (22.0-35.0); MEAN CELL VOLUME 90.8 fl (80.0-105.0); MEAN CORPUSCULAR HEMOGLOBIN 27.8 pg (25.0-35.0); MEAN CORPUSCULAR HGB CONC 30.6 g/dl (31.0-37.0); MEAN PLATELET VOLUME 9.9 fl (7.0-11.0); MONO # 1.6 (0.1-0.6); MONO % 5.5 % (1.0-6.0)
[2017-06-10 10:53] LABS: WHITE BLOOD COUNT 28.5 10^3/ul (4.5-11.0)
--- NOTE | 2017-06-10 10:59 | ED PDOC ---
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 On review of history, most recent PET sacn shows right lower lobe infection vs. inflammation on 09/09. Patient has no other complaints at this time. PMD: Dr. Jasper Porctor Time/Duration: 24 hours (back pain since yesterday), < month Symptom Onset: Gradual Symptom Course: Unchanged Severity Level: Moderate Activities at Onset: Light Context: Home Past Medical History - Provider Review Nursing Documentation Reviewed: Yes - Infectious Disease Hx of Infectious Diseases: None - Tetanus Immunization Tetanus Immunization: Unknown - Reproductive Menopause: Yes - Cardiac Hx Cardiac Disorders: Yes (mi 30 yrs ago) Hx Hypertension: Yes Hx Peripheral Edema: Yes (ble +1) - Pulmonary Hx Asthma: Yes Hx Bronchitis: Yes Hx Chronic Obstructive Pulmonary Disease (COPD): Yes Hx Emphysema: Yes Hx Pneumonia: Yes Other/Comment: recently dx with left hilar mass with adenocarcinoma stage IV lung - Neurological Hx Neurological Disorder: No - HEENT Hx HEENT Disorder: Yes (eyeglasses) Hx Glaucoma: Yes - Renal Hx Renal Disorder: No - Endocrine/Metabolic Hx Endocrine Disorders: No - Hematological/Oncological Hx Cancer: Yes (recent dx lung ca) - Integumentary Hx Dermatological Disorder: No - Musculoskeletal/Rheumatological Hx Musculoskeletal Disorders: Yes Hx Degenerative Joint Disease: Yes Hx Falls: No Hx Spinal Stenosis: Yes Hx Unsteady Gait: Yes (weakness) - Gastrointestinal Hx Gastrointestinal Disorders: Yes (poor appetite, weight loss) Hx Gastroesophageal Reflux: Yes - Genitourinary/Gynecological Hx Genitourinary Disorders: No - Psychiatric Hx Psychophysiologic Disorder: No Hx Substance Use: No - Surgical History Hx Cardiac Catheterization: Yes (05/04/17) Hx Cholecystectomy: Yes Other/Comment: B/L knee replacement left knee at 70 yrs old and right knee 79 years old, pac in and out 21 yrs ago following gallbladder sx due to poor veins , ct guide lung bx 05/01/17 - Anesthesia Hx Anesthesia Reactions: No Hx Malignant Hyperthermia: No Family/Social History - Physician Review Nursing Documentation Reviewed: Yes Family/Social History: No Known Family HX Smoking Status: Former Smoker Hx Alcohol Use: No Hx Substance Use: No Allergies/Home Meds Allergies/Adverse Reactions: Allergies No Known Allergies Allergy (Verified 05/13/17 09:45) Home Medications: Home Meds Medication Instructions Recorded Confirmed Ezetimibe/Simvastatin [Vytorin 10 1 tab PO DAILY 12/19/14 06/10/17 mg-20 mg] Latanoprost 0.005% Opht [Xalatan 1 drop BOTHEYES DAILY 12/19/14 06/10/17 Opht] Nitroglycerin 0.4 mg/hr [Nitro-Dur 1 patch TD DAILY 12/19/14 06/10/17 0.4 mg/hr Patch] diltiaZEM [Cardizem] 120 mg PO DAILY 12/19/14 06/10/17 Azelastine/Fluticasone [Dymista 1 spray INH DAILY 02/23/17 06/10/17 Nasal [place]] Aspirin [Ecotrin] 81 mg PO DAILY 04/29/17 06/10/17 Promethazine HCl/Codeine 1 tsp PO TID 04/29/17 06/10/17 Alprazolam [Xanax] 0.25 mg PO BID PRN 05/13/17 06/10/17 Budesonide [Pulmicort Respules] 1 vial NEB Q12 06/10/17 06/10/17 Clotrimazole [Mycelex Johnny] 10 mg PO 5XD 06/10/17 06/10/17 Folic Acid [Folic Acid] 1 mg PO DAILY 06/10/17 06/10/17 Levalbuterol [Xopenex] 1 vial NEB QID PRN 06/10/17 06/10/17 Metoprolol Succinate [Toprol XL] 25 mg PO DAILY 06/10/17 06/10/17 Vancomycin HCl [Vancocin HCl] 250 mg PO TID 06/10/17 06/10/17 Review of Systems - Physician Review All systems were reviewed & negative as marked: Yes - Review of Systems Constitutional: absent: Fatigue, Weight Change Eyes: absent: Vision Changes ENT: absent: Hearing Changes Respiratory: SOB, Cough, Sputum Cardiovascular: Chest Pain (post-tussive), Edema (pitting edema) Gastrointestinal: absent: Abdominal Pain Genitourinary Female: absent: Dysuria, Frequency Musculoskeletal: Back Pain. absent: Arthralgias Skin: absent: Rash, Pruritis Neurological: absent: Headache, Dizziness Endocrine: absent: Diaphoresis Hemo/Lymphatic: absent: Adenopathy Psychiatric: absent: Anxiety, Depression Physical Exam Vital Signs Reviewed: Yes Vital Signs Temp Pulse Resp BP Pulse Ox 06/10/17 11:08 101.7 F H 06/10/17 10:42 129/81 06/10/17 10:38 24 06/10/17 10:28 113 H 22 129/81 83 L 06/10/17 10:25 101.7 F H Temperature: Febrile Medical Decision Making ED Course and Treatment: 06/10/17 11:19 Impression: 81 year old female complaining of productive cough with yellow sputum, worsening of shortness of breath, dyspnea on exertion, post-tussive chest pain, and pitting edema for a few weeks, and atraumatic back pain since last night. Differential Diagnosis included but are not limited to: Plan: -- EKG -- Abdomen and Pelvis CT -- Lumbar Spine CT w/o contrast -- VBG and Blood Culture -- Urinalysis and Urine Culture -- Labs -- Ecotrin, Lasix, Atrovent, Solu-Medrol, and Morphine -- Reassess and disposition Prior Visits: Notes and results from previous visits were reviewed. Patient was last seen in the emergency department on 05/13/17 for evaluation of shortness of breath. Patient was admitted to hospitalist care for further evaluation. Progress Notes: 06/10/17 11:45 Chest X-ray Creator : Edgardo Mosquera MD FINDINGS: LUNGS: Left-sided perihilar mass. This was recently biopsied PLEURA: No significant pleural effusion identified, no pneumothorax apparent. CARDIOVASCULAR: There is mild cardiomegaly and aortic tortuosity OSSEOUS STRUCTURES: No significant abnormalities. VISUALIZED UPPER ABDOMEN: Normal. OTHER FINDINGS: None. IMPRESSION: Left-sided perihilar mass recently evaluated. No acute changes - Lab Interpretations Lab Results: 06/10/17 10:35 06/10/17 10:35 Lab Results 06/10/17 11:29: Urine Color Straw, Urine Appearance Clear, Urine pH 6.5, Ur Specific [place] 1.010, Urine Protein Negative, Urine Glucose (UA) Negative, Urine Ketones Negative, Urine Blood Negative, Urine Nitrate Negative, Urine Bilirubin Negative, Urine Urobilinogen 0.2, Ur Leukocyte Esterase Negative 06/10/17 11:29: Urine Opiates Screen Positive H, Urine Methadone Screen Negative , Ur Barbiturates Screen Negative, Ur Phencyclidine Scrn Negative, Ur Amphetamines Screen Negative, U Benzodiazepines Scrn Negative, U Oth Cocaine Metabols Negative, U Cannabinoids Screen Negative 06/10/17 10:57: pO2 35, VBG pH 7.39, VBG pCO2 52.0, VBG HCO3 31.5 H, VBG Total CO2 33.1 H, VBG O2 Sat (Calc) 66.0 H, VBG Base Excess 5.2 H, VBG Potassium 5.4 H , Glucose 182 H, Lactate 2.1, FiO2 21.0, Sodium 138.0, Chloride 102.0, Venous Blood Potassium 5.4 H 06/10/17 10:35: Sodium 139, Potassium 5.1 H, Chloride Pending, Carbon Dioxide 30 , Anion Gap 14, BUN 33 H, Creatinine 0.7, Est GFR ( Amer) > 60, Est GFR ( Non-Af Amer) > 60, Random Glucose 165 H, Calcium Pending, Total Bilirubin 0.9, AST Pending, ALT Pending, Alkaline Phosphatase Pending, Lactate Dehydrogenase 3047 H, Total Creatine Kinase Pending, Troponin I Pending, NT-Pro-B Natriuret Pep Pending, Total Protein 6.4, Albumin Pending, Globulin 3.0, Albumin/Globulin Ratio 1.1 06/10/17 10:35: PT 18.7 H, INR 1.68 H, APTT 26.2 06/10/17 10:35: WBC 28.5 H* D, RBC 3.92, Hgb 10.9 L, Hct 35.6 L, MCV 90.8, MCH 27.8, MCHC 30.6 L, RDW 20.0 H, Plt Count 163, MPV 9.9, Gran % 84.8 H, Lymph % ( Auto) 9.5 L, [place] % (Auto) 5.5, Eos % (Auto) 0.0 L, Baso % (Auto) 0.2, Gran # 24.17 H, Lymph # 2.7, [place] # 1.6 H, Eos # 0.0, Baso # 0.06 I have reviewed the lab results: Yes - RAD Interpretation Radiology Orders: 06/10/17 10:35 CHEST PORTABLE [RAD] Stat 06/10/17 10:44 ABDOMEN & PELVIS [ABD & PELVIS W/O PO OR IV CONT] [CT] Stat 06/10/17 10:45 LUMBAR SPINE W/O CONTRAST [CT] Stat - Medication Orders Current Medication Orders: Cefepime HCl (Maxipime 2gm) 2 gm in 100 mls @ 100 mls/hr IVPB STAT STA PRN Reason: Protocol Stop: 06/10/17 12:38 Vancomycin HCl (Vancomycin 1gm) 1 gm in 250 mls @ 167 mls/hr IVPB STAT STA Stop: 06/10/17 13:17 Discontinued Medications Aspirin (Ecotrin) 325 mg PO STAT STA Stop: 06/10/17 10:39 Last Admin: 06/10/17 11:08 Dose: 325 mg Doxycycline Hyclate (Doryx) 100 mg PO STAT STA PRN Reason: Protocol Stop: 06/10/17 11:41 Last Admin: 06/10/17 11:52 Dose: 100 mg Furosemide (Lasix) 40 mg IVP STAT STA Stop: 06/10/17 10:37 Last Admin: 06/10/17 10:42 Dose: 40 mg MAR Blood Pressure Document 06/10/17 10:42 EWO (Rec: 06/10/17 10:43 [facility] [id number]) Blood Pressure Blood Pressure (100/60-150/90 mm Hg) 129/81 IVP Administration Document 06/10/17 10:42 EWO (Rec: 06/10/17 10:43 [facility] [id number]) Charges for Administration # of IVP Administrations 1 Ipratropium [place] (Atrovent) 0.5 mg IH STAT STA Stop: 06/10/17 10:38 Last Admin: 06/10/17 11:07 Dose: 0.5 mg Methylprednisolone (Solu-Medrol) 125 mg IVP STAT STA Stop: 06/10/17 10:37 Last Admin: 06/10/17 11:08 Dose: 125 mg IVP Administration Document 06/10/17 11:08 EWO (Rec: 06/10/17 11:08 [facility] [id number]) Charges for Administration # of IVP Administrations 1 Morphine Sulfate (Morphine) 2 mg IVP STAT STA Stop: 06/10/17 10:38 Last Admin: 06/10/17 11:08 Dose: 2 mg MAR Pain Assessment Document 06/10/17 11:08 EWO (Rec: 06/10/17 11:08 [facility] [id number]) Pain Reassessment Is this a pain reassessment? No Sleep Is patient sleeping during reassessment? No Presence of Pain Presence of Pain Yes Pain Scale Used Pain Scale Used Numeric Location Upper or Lower Lower Pain Location Body Site Back Description Description Constant Pain Behavior Moaning IVP Administration Document 06/10/17 11:08 EWO (Rec: 06/10/17 11:08 [facility] [id number]) Charges for Administration # of IVP Administrations 1 - Scribe Statement The provider has reviewed the documentation as recorded by the Bubbaibarnel Sosa Provider Scribe Attestation: All medical record entries made by the Scribe were at my direction and personally dictated by me. I have reviewed the chart and agree that the record accurately reflects my personal performance of the history, physical exam, medical decision making, and the department course for this patient. I have also personally directed, reviewed, and agree with the discharge instructions and disposition. Disposition/Present on Arrival - Present on Arrival Any Indicators Present on Arrival: No History of DVT/PE: No History of Uncontrolled Diabetes: No Urinary Catheter: No History of Decub. Ulcer: No History Surgical Site Infection Following: None - Disposition Have Diagnosis and Disposition been Completed?: Yes Diagnosis: Elevated troponin I level, Upper respiratory infection, Pulmonary mass Disposition: HOSPITALIZED Disposition Time: 12:33 Patient Plan: Admission, Telemetry Condition: GUARDED Referrals: [facility], [Non-Staff] - Follow up with primary Forms: [place] (Slovak)
[2017-06-10 11:03] LABS: VENOUS BLOOD GAS BASE EXCESS 5.2 mmol/L (0.0-2.0); VENOUS BLOOD PH 7.39 (7.32-7.43)
[2017-06-10 11:09] LABS: INR 1.68 (0.93-1.08)
[2017-06-10 11:10] LABS: PARTIAL THROMBOPLASTIN TIME 26.2 Seconds (25.1-36.5)
--- NOTE | 2017-06-10 11:14 | RAD ---
HISTORY: routine med exam COMPARISON: 05/13/2017 FINDINGS: LUNGS: Left-sided perihilar mass. This was recently biopsied PLEURA: No significant pleural effusion identified, no pneumothorax apparent. CARDIOVASCULAR: There is mild cardiomegaly and aortic tortuosity OSSEOUS STRUCTURES: No significant abnormalities. VISUALIZED UPPER ABDOMEN: Normal. OTHER FINDINGS: None. IMPRESSION: Left-sided perihilar mass recently evaluated. No acute changes
[2017-06-10 11:33] LABS: PH,URINE 6.5 (4.7-8.0); URINE BILIRUBIN NEGATIVE (NEGATIVE); URINE BLOOD NEGATIVE (NEGATIVE); URINE GLUCOSE (UA) NEGATIVE (NEGATIVE); URINE KETONE NEGATIVE (NEGATIVE); URINE LEUKOCYTE ESTERASE NEGATIVE Leu/uL (NEGATIVE); URINE PROTEIN NEGATIVE mg/dL (<30 mg/dL); URINE UROBILINOGEN 0.2 E.U./dL (<1 E.U./dL)
[2017-06-10 11:34] LABS: URINE APPEARANCE CLEAR (CLEAR); URINE COLOR STRAW (YELLOW)
[2017-06-10] MEDS ORDERED: Vancomycin 1 g Inj IVPB ONE (11:38)
[2017-06-10] MEDS ORDERED: Cefepime IV 2 gm in NS 2 GM/100 ML BAG IVPB STA (11:39)
[2017-06-10] MEDS ORDERED: Vancomycin 1gm in NS 250ml 1 GM/250 ML BAG IVPB STA (11:48)
[2017-06-10 11:51] LABS: ALB/GLOB RATIO 1.1 (1.1-1.8); BILIRUBIN,TOTAL 0.9 mg/dL (0.2-1.3); BLOOD UREA NITROGEN 33 mg/dL (7-21); CARBON DIOXIDE 30 mmol/L (21-33); GFR AFRICAN-AMERICAN > 60; GLUCOSE,RANDOM 165 mg/dL (70-110); POTASSIUM 5.1 mmol/L (3.6-5.0); SODIUM 139 mmol/L (132-148); TOTAL PROTEIN 6.4 g/dL (5.8-8.3)
[2017-06-10 12:33] LABS: TROPONIN I 0.29 ng/mL
[2017-06-10 12:43] LABS: ALKALINE PHOSPHATASE 258 U/L (38-126); ALT/SGPT 45 U/L (7-56); AST/SGOT 44 U/L (14-36); CALCIUM 9.3 mg/dL (8.4-10.5); CHLORIDE 100 mmol/L (98-107)
--- NOTE | 2017-06-10 13:03 | CT ---
PROCEDURE: CT Abdomen and Pelvis without intravenous contrast HISTORY: back pain, mets /lung ca COMPARISON: None. TECHNIQUE: Without contrast.. Contrast Dose: Radiation dose: Total exam DLP = 789 mGy-cm. This CT exam was performed using one or more of the following dose reduction techniques: Automated exposure control, adjustment of the mA and/or kV according to patient size, and/or use of iterative reconstruction technique. FINDINGS: LOWER THORAX: There is a mass and consolidation along the medial aspect of the left lower lobe. This was recently evaluated with a contrast-enhanced CT. LIVER: There is a mass in the low lateral segment of the left lobe of the liver measuring 4.5 x 5.7 cm. This is seen on image 46 through 48. GALLBLADDER AND BILE DUCTS: Removed PANCREAS: Unremarkable. No gross lesion or ductal dilatation. SPLEEN: Unremarkable. ADRENALS: Unremarkable. No mass. KIDNEYS AND URETERS: Unremarkable. No hydronephrosis. No solid mass. VASCULATURE: Unremarkable. No aortic aneurysm. BOWEL: Unremarkable. No obstruction. No gross mural thickening. APPENDIX: Unremarkable. Normal appendix. PERITONEUM: Unremarkable. No free fluid. No free air. LYMPH NODES: Unremarkable. No enlarged lymph nodes. BLADDER: Unremarkable. REPRODUCTIVE: Unremarkable. BONES: There is disc degeneration a multiple levels OTHER FINDINGS: None. IMPRESSION: Mass in the lateral segment of the left lobe of the liver consistent with metastatic disease. No acute findings in the abdomen. Degenerative changes in the lumbar spine
--- NOTE | 2017-06-10 13:10 | CT ---
PROCEDURE: CT Lumbar Spine without contrast HISTORY: midthocolumbar ttp/lung ca /mets COMPARISON: None. TECHNIQUE: Axial computed tomography images were obtained of the lumbar spine without the use of intravenous contrast. Coronal and sagittal reformatted images were created and reviewed. Radiation dose: Total exam DLP = 929 mGy-cm. This CT exam was performed using one or more of the following dose reduction techniques: Automated exposure control, adjustment of the mA and/or kV according to patient size, and/or use of iterative reconstruction technique. FINDINGS: VERTEBRAE: There is no evidence of metastatic disease. There is a mild compression deformity of the superior endplate of L2. The age of this is uncertain. This was not present on the CT of the abdomen and pelvis dated 01/09/2017. DISCS/SPINAL CANAL/NEURAL FORAMINA: L1-2: Unremarkable. L2-3: Moderate disc bulge. Moderate stenosis L3-4: Moderate disc bulge and moderate stenosis L4-5: Severe disc degeneration with a vacuum disc and spondylolisthesis. Facet arthropathy. Severe spinal stenosis L5-S1: Severe disc degeneration with a vacuum disc and marginal osteophytes producing bilateral foraminal stenosis PARASPINAL SOFT TISSUES: There is a 2 x 3 cm soft tissue mass in the subcutaneous fat overlying the sacrum. This is of uncertain etiology and significance. The finding is seen on image 79 series 4 and sagittal image 54. OTHER FINDINGS: None. IMPRESSION: Mild compression deformity of the superior endplate of L2. No evidence of metastatic disease. Multilevel disc degeneration and spinal stenosis. See comments Soft tissue mass in the subcutaneous fat overlying the sacrum
[2017-06-10] MEDS ORDERED: Influenza Vaccine 60 mcg/0.5 mL SYR (4YR UP) IM ONE (14:04)
[2017-06-10] MEDS ORDERED: Pneumococcal 23-Valent Vaccine IM ONE (14:04)
--- NOTE | 2017-06-10 15:00 | CARD ---
APPROVED REPORT EKG Measurement Heart [id number] <Conclusion> Sinus tachycardia Inferior infarct, age undetermined Anterior infarct, age undetermined Abnormal ECG
[2017-06-10] MEDS: Sodium Chloride 0.9% 1,000 ML IV SCH (16:53)
[2017-06-10 18:16] LABS: VENOUS BLOOD GAS BASE EXCESS 5.4 mmol/L (0.0-2.0); VENOUS BLOOD PH 7.49 (7.32-7.43)
[2017-06-10] MEDS ORDERED: Levalbuterol 1.25 MG/3 ML Inhal Soln UD INH PRN (18:37)
[2017-06-10] MEDS: Levalbuterol 1.25 MG/3 ML Inhal Soln UD IH PRN (19:35)
[2017-06-10] MEDS: Budesonide 0.5 mg/2 ml Inhal Susp UD IH SCH (19:35)
[2017-06-10] MEDS ORDERED: Albuterol-Ipratrop 3 mg / 0.5 (3 ml) UD IH SCH (20:00)
[2017-06-10] MEDS: Cefepime 1gm in NS 100ml 1 GM/100 ML BAG IVPB SCH (21:52)
[2017-06-10] MEDS: MethylPREDNISolone 40 mg Vial IV SCH (22:14)
[2017-06-10] MEDS: Latanoprost 2.5 ml Opht Soln OU SCH (23:27)
--- NOTE | 2017-06-11 03:26 | HP ---
HISTORY OF PRESENT ILLNESS: The patient is an 81-year-old, seen and examined in the emergency room. According to daughter, she has been increasingly weak, tired, unable to eat, complaining of shortness of breath, complaining of back pain and chest pain. Patient was recently diagnosed with lung CA and was evaluated by Dr. Jain. Plan is to start radiation therapy from Monday. But the patient's daughter states she has been increasingly lethargic and short of breath, so they could not wait for Monday and brought her to emergency room for further evaluation. Denies any fever. Does complain of increasing leg swelling, and complains of difficulty walking and increasing lethargy. PAST MEDICAL HISTORY: Significant for, 1. Hypertension. 2. Coronary artery disease, status post recent cardiac cath that showed right total occlusion with good collaterals. 3. History of COPD. 4. Bilateral knee osteoarthritis, status post knee replacement. 5. Anxiety disorder. 6. Hyperlipidemia. PAST SURGICAL HISTORY: Significant for left total knee replacement, 2 years ago. ALLERGIES: SHE IS NOT ALLERGIC TO ANY MEDICATIONS. MEDICATIONS: At home, she is on diltiazem 120 daily, vancomycin 250 t.i.d., promethazine with codeine, metoprolol 25 daily, Xopenex q.6 hours, folic acid 1 mg daily, Vytorin 10/20 daily, Dymista nasal spray, aspirin 81 daily, and Xanax. SOCIAL HISTORY: She used to be a heavy smoker in the past and used to socially drink. REVIEW OF SYSTEMS: Generalized weakness, lethargy, poor appetite, difficulty walking and ambulating. Patient states she lost almost 50 pounds in the last 3 to 4 months. PHYSICAL EXAMINATION: GENERAL: She is awake, alert. She is sleepy, but arousable; answers questions appropriately. VITAL SIGNS: She is afebrile. Pulse 65, respirations 18, blood pressure 87/59. LUNGS: Bilateral soft crackle in the left upper lung region. HEART: S1, S2 audible. ABDOMEN: Soft, obese, nontender. No rebound, no guarding. NEUROLOGIC: Patient is lethargic, sleepy. LABORATORY DATA: WBC is 28.5, hemoglobin 10.9, hematocrit 35.6, platelets of 163. PT 18.7, INR 1.68. Chemistry: Sodium 139, potassium 5.1, chloride 100 and CO2 of 30, BUN 33, creatinine 0.7, blood sugar 165, alkaline phosphatase is 258, LDH is 3047, troponin 0.29. Urinalysis is negative. Urine tox positive for opiates. DIAGNOSTIC DATA: She had CT scan of the abdomen and pelvis done, which shows mass in the lateral aspect of the left lobe of the liver, consistent with mets. CT scan of lumbar spine shows compression deformity of superior endplate of L2, no evidence of metastatic disease, multi-level disc degeneration. X-ray of chest, left-sided perihilar mass recently evaluated. EKG shows sinus tachycardia, inferior infarct - age undetermined. ASSESSMENT: 1. Lung cancer; poorly differentiated adenocarcinoma of the lung with metastases to the liver. 2. History of hypertension, but now hypotensive. 3. Coronary artery disease, status post cardiac catheterization and right coronary artery occlusion. 4. Chronic obstructive pulmonary disease. 5. History of smoking. 6. Leukocytosis, probably secondary to infection and malignancy. PLAN: We will start the patient on nebulizer treatment. Start her on doxycycline. We will put her on 100% nonrebreather. She has been started on cefepime, started on IV steroids. ID consult by Dr. Simeon, Oncology consult by Dr. Jain, and Cardiology consult by Dr. Hidalgo have been requested. Demarcus Proctor MD
[2017-06-11] MEDS: Budesonide 0.5 mg/2 ml Inhal Susp UD IH SCH ×2 (07:42→19:30)
[2017-06-11] MEDS: Levalbuterol 1.25 MG/3 ML Inhal Soln UD IH PRN ×3 (07:43→19:29)
[2017-06-11 07:49] LABS: BASO # 0.02 K/mm3 (0.0-2.0); BASO % 0.1 % (0.0-3.0); GRAN # 22.05 (1.4-6.5); GRAN % 93.1 % (50.0-68.0); HEMATOCRIT 31.2 % (36.0-48.0); LYMPH # 1.1 (1.2-3.4); LYMPH % 4.6 % (22.0-35.0); MEAN CELL VOLUME 90.7 fl (80.0-105.0); MEAN CORPUSCULAR HEMOGLOBIN 27.6 pg (25.0-35.0); MEAN CORPUSCULAR HGB CONC 30.4 g/dl (31.0-37.0); MEAN PLATELET VOLUME 10.3 fl (7.0-11.0); MONO # 0.5 (0.1-0.6); MONO % 2.2 % (1.0-6.0); PLATELET COUNT 128 10^3/uL (120.0-450.0); RED CELL DISTRIBUTION WIDTH 19.8 % (11.5-14.5); WHITE BLOOD COUNT 23.7 10^3/ul (4.5-11.0)
[2017-06-11 08:16] LABS: ALKALINE PHOSPHATASE 211 U/L (38-126); ALT/SGPT 35 U/L (7-56); AST/SGOT 31 U/L (14-36); BILIRUBIN,TOTAL 0.6 mg/dL (0.2-1.3); BLOOD UREA NITROGEN 31 mg/dL (7-21); CALCIUM 8.4 mg/dL (8.4-10.5); CARBON DIOXIDE 27 mmol/L (21-33); CHLORIDE 102 mmol/L (98-107); GFR AFRICAN-AMERICAN > 60; GLUCOSE,RANDOM 193 mg/dL (70-110); POTASSIUM 4.5 mmol/L (3.6-5.0); SODIUM 138 mmol/L (132-148); TOTAL PROTEIN 5.4 g/dL (5.8-8.3)
[2017-06-11] MEDS: Sodium Chloride 0.9% 1,000 ML IV SCH ×2 (08:36→22:15)
[2017-06-11 09:42] LABS: ANISOCYTOSIS 1+; HYPOCHROMIA 1+; NEUTROPHIL 90 % (50.0-70.0); POIKILOCYTOSIS 1+
[2017-06-11 09:43] LABS: POLYCHROMASIA SLIGHT
[2017-06-11] MEDS: Enoxaparin 40 mg Syringe SC SCH (10:07)
[2017-06-11] MEDS: MethylPREDNISolone 40 mg Vial IV SCH ×2 (10:07→22:09)
[2017-06-11] MEDS: Cefepime 1gm in NS 100ml 1 GM/100 ML BAG IVPB SCH ×2 (12:38→22:08)
--- NOTE | 2017-06-11 16:45 | CP.PCM.PN ---
Subjective - Date & Time of Evaluation Date of Evaluation: 06/11/17 Time of Evaluation: 16:00 - Subjective Subjective: Had some sputum production earlier today; and cough; tired on bipap. Endorses SOB; but better than yesterday 12 ROS otherwise negative Pain: denies Objective - Vital Signs/Intake and Output Vital Signs (last 24 hours): Temp Pulse Resp BP Pulse Ox 97.8 F 99 H 22 111/66 97 06/11/17 12:00 06/11/17 15:56 06/11/17 12:00 06/11/17 12:00 06/11/17 06:00 Intake and Output: 06/11/17 06/11/17 06:59 18:59 Intake Total 1200 Output Total 900 Balance 300 - Medications Medications: Current Medications Acetaminophen (Tylenol 325mg Tab) 650 mg PO Q6H PRN PRN Reason: Fever >100.4 F Albuterol/Ipratropium (Duoneb 3 Mg/0.5 Mg (3 Ml) Ud) 3 ml IH Q2H PRN PRN Reason: Shortness of Breath Alprazolam (Xanax) 0.25 mg PO BID PRN; Protocol PRN Reason: Anxiety Last Admin: 06/10/17 22:03 Dose: 0.25 mg Aspirin (Aspirin Chewable) 81 mg PO DAILY [facility] Last Admin: 06/11/17 10:07 Dose: 81 mg Budesonide (Pulmicort Respules) 0.5 mg IH [id number] [facility] Last Admin: 06/11/17 07:42 Dose: 0.5 mg Clotrimazole (Mycelex Johnny) 10 mg PO 5XD [facility] Last Admin: 06/11/17 14:04 Dose: 10 mg Enoxaparin Sodium (Lovenox) 40 mg SC DAILY ERMA PRN Reason: Protocol Last Admin: 06/11/17 10:07 Dose: 40 mg Folic Acid (Folic Acid) 1 mg PO DAILY [facility] Last Admin: 06/11/17 10:07 Dose: 1 mg Sodium Chloride (Sodium Chloride 0.9%) 1,000 mls @ 75 mls/hr IV .[id number] [facility] Last Admin: 06/11/17 08:36 Dose: 75 mls/hr Cefepime HCl (Maxipime 1gm) 1 gm in 100 mls @ 100 mls/hr IVPB Q12 ERMA PRN Reason: Protocol Last Admin: 06/11/17 12:38 Dose: 100 mls/hr Doxycycline Hyclate 100 mg/ (Sodium Chloride) 100 mls @ 100 mls/hr IVPB Q12 ERMA PRN Reason: Protocol Last Admin: 06/11/17 10:09 Dose: 100 mls/hr Latanoprost (Xalatan Opht) 0 ml OU HS ERMA Last Admin: 06/10/17 23:27 Dose: 2.5 ml Levalbuterol HCl (Xopenex) 1.25 mg IH [id number] PRN PRN Reason: Shortness of Breath Last Admin: 06/11/17 13:43 Dose: 1.25 mg Methylprednisolone (Solu-Medrol) 40 mg IV Q12 [facility] Last Admin: 06/11/17 10:07 Dose: 40 mg Ondansetron HCl (Zofran Inj) 4 mg IVP Q6H PRN PRN Reason: Nausea/Vomiting Pantoprazole Sodium (Protonix Inj) 40 mg IVP DAILY [facility] Last Admin: 06/11/17 10:07 Dose: 40 mg - Labs Labs: 06/11/17 06:45 06/11/17 06:45 PT 18.7 SECONDS (9.4-12.5) H 06/10/17 10:35 INR 1.68 (0.93-1.08) H 06/10/17 10:35 APTT 26.2 Seconds (25.1-36.5) 06/10/17 10:35 - Constitutional Appears: Non-toxic - Head Exam Head Exam: ATRAUMATIC, NORMAL INSPECTION, NORMOCEPHALIC - Respiratory Exam Respiratory Exam: Accessory Muscle Use, Wheezes. absent: Chest Wall Tenderness , Decreased Breath Sounds - Cardiovascular Exam Cardiovascular Exam: REGULAR RHYTHM, +S1, +S2. absent: Murmur - GI/Abdominal Exam GI & Abdominal Exam: Soft, Normal Bowel Sounds. absent: Tenderness - Extremities Exam Extremities Exam: Full ROM, Normal Capillary Refill, Normal Inspection. absent : Joint Swelling, Pedal Edema Assessment and Plan (1) Pulmonary mass Status: Acute - Assessment and Plan (Free Text) Assessment: Ms. 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 Agree with medical management of COPD exacerbation and intermittient Bipap use per primary team. Pending respiratory status, will discuss utility/saftey of administering XRT with radiation oncology which theoretically should help the patient's breathing in the long run given suspected mainstem compression. Gildardo Jain MD Oncology Service
--- NOTE | 2017-06-11 16:54 | PN ---
DATE: SUBJECTIVE: The patient is an 81-year-old, seen and examined, short of breath without BiPAP. Eating some semi-solid food without any coughing or choking. Seems to be more alert than yesterday. PHYSICAL EXAMINATION: VITAL SIGNS: She is afebrile, pulse 99, respirations 22, and blood pressure 111/66. LUNGS: Bilateral few soft crackle in upper lung region. HEART: S1 and S2 audible. ABDOMEN: Soft, obese, nontender. No rebound. No guarding. NEUROLOGIC: The patient is awake, alert, oriented, able to communicate, moves all extremities. LABORATORY DATA: WBC 23.7, hemoglobin 9.5, hematocrit 31.2, and platelets 128. Chemistry, sodium 138, potassium 4.5, chloride 102, CO2 of 27, BUN 31, creatinine 0.6, and blood sugar of 193. Troponin 0.29. Urinalysis is unremarkable. Urine tox positive for opioids. She had lumber spine x-ray that shows old L2 endplate compression fracture and also she has metastasis to the liver. ASSESSMENT: 1. 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 2. Mediastinal lymphadenopathy. 3. History of chronic obstructive pulmonary disease. 4. Hypertension. 5. Coronary artery disease. PLAN: Currently, the patient is on doxycycline. She is getting nebulizer treatment. She is on aspirin. We will continue her on folic acid. She is on DVT prophylaxis. She is also on Maxipime. Out of bed to chair. We will discuss with Dr. Rachel in a.m. If she can be started on palliative radiation therapy to decrease tumor size in her mediastinum to improve her respiratory status and we will continue her on Telemetry. Discussed with the patient and family at length. She does not want to be DNR. She states if her respiratory status gets compromised she would like to be on respiratory . Demarcus Proctor MD
--- NOTE | 2017-06-11 19:47 | CON ---
DATE: 06/11/2017 LOCATION: The patient is seen in room 270, bed 2. CHIEF COMPLAINT: Weakness times several days. HISTORY OF PRESENT ILLNESS: An 81-year-old female with history of poorly differentiated metastatic adenocarcinoma of the lung with osteoporosis. The patient does have mets to the liver, spleen, and sacral bone. The patient is on home O2 therapy. The patient has hypertension, chronic obstructive lung disease, asthma and emphysema, presents to the emergency room with weakness, shortness of breath, and cough. The cough is productive, she describes it is yellow and there is mild chest pain and leg swelling, low-grade fevers. PAST MEDICAL HISTORY: Significant for lung cancer, poorly differentiated adenocarcinoma, hypertension, chronic obstructive lung disease, asthma, and emphysema. The patient has lung cancer, adenocarcinoma, is metastatic to the lung, liver, spleen and sacral bone. The patient also on home O2 therapy. Past medical history also significant for coronary artery disease, myocardial infarction, high cholesterol, and hypertension. PAST SURGICAL HISTORY: Significant for cardiac cath and left knee replacement 2 years ago. ALLERGIES: THE PATIENT HAS NO KNOWN ALLERGIES. MEDICATIONS AT HOME: Reveal to be Xanax, aspirin, Cardizem, and Toprol. PHYSICAL EXAMINATION: GENERAL: The patient is in bed, weak, chronically ill. VITAL SIGNS: Temperature of 101.7; heart rate of 93, it was up to 113 in the emergency room; respiratory rate of 19, it was up to 24 in the emergency room; blood pressure of 117/60, it was down to 87/54 yesterday; oxygen saturation is at 83%. HEENT: Unremarkable. NECK: Supple. LUNGS: Have decreased breath sounds. HEART: Normal S1, S2. ABDOMEN: Soft, nontender. LABORATORY DATA: White count is 28,000, hemoglobin of 10, platelets of 163, 84% granulocytosis. Coagulation is noted. BUN of 33, creatinine of 0.7. Random glucose is 165, alk phos is 258, LDH is 3000. Urinalysis is noted. Microbiology reveals that on 04/29/2017, the patient had an E. coli in the urine, which was pansensitive, and on 06/09/2017, two days ago, the patient had C. diff antigen and toxin, both were negative. ASSESSMENT AND PLAN: This is an 81-year-old female with past medical history of poorly-differentiated adenocarcinoma of the lung with liver metastases, spleen metastases, and sacral bone metastases with history of coronary artery disease, history of myocardial infarction, high cholesterol, hypertension, asthma and emphysema, end-stage chronic obstructive pulmonary disease, on home oxygen therapy, now presenting with fever of 101, tachycardia, dyspnea, hypoxia, hypotension, and although the patient's chest x-ray is reported to be negative, the patient has severe sepsis with mass in the lateral segment of the lobe consistent with metastatic disease. Also on the CT scan of the abdomen, there is consolidation consistent with healthcare-associated pneumonia. The patient has severe sepsis secondary to healthcare-associated pneumonia, complication of her metastatic lung cancer. We will treat the patient with doxycycline and cefepime and check on the procalcitonin and blood cultures, urine cultures and sputum cultures. We will make further recommendations upon availability of initial results. Overall prognosis is quite poor for this patient. Toi Simeon MD
[2017-06-11] MEDS: Latanoprost 2.5 ml Opht Soln OU SCH (22:09)
[2017-06-12] MEDS: Albuterol-Ipratrop 3 mg / 0.5 (3 ml) UD IH PRN ×2 (01:37→08:15)
--- NOTE | 2017-06-12 04:22 | CON ---
DATE: 06/11/2017 LOCATION: The patient is in room 270, bed 2. REASON FOR CONSULTATION: Coronary artery disease, shortness of breath. HISTORY OF PRESENT ILLNESS: An 81-year-old female, who recently was diagnosed with mediastinal mass with poorly differentiated adenocarcinoma with metastasis to liver and spleen, admitted with history that the patient is getting very weak and having lot of shortness of breath, cough, and back pain, and sometimes she is very lethargic at home. The patient had cardiac catheterization on 12/22/2016, which showed totally occluded LAD with collaterals from RCA, this is the same finding as on cath of 12/22/2005. Attempts were made to try to open this artery, but it was heavily calcified, so attempt to try to open it was not successful. PAST MEDICAL HISTORY: Positive for COPD, hyperlipidemia, anxiety disorder, mediastinal mass with poorly differentiated adenocarcinoma with metastasis to liver and spleen, coronary artery disease as mentioned above, and arthritis. PAST SURGICAL HISTORY: The patient had knee replacements and cholecystectomy. PERSONAL HISTORY: He used to smoke 2 packs a day, stopped about 20 years ago. Denies drinking. ALLERGIES: THE PATIENT DENIES ANY ALLERGIES. REVIEW OF SYSTEMS: All the systems are reviewed positives mentioned in the history, others were negative. MEDICATIONS AT HOME: The patient was on diltiazem 120 p.o. daily, vancomycin 250 p.o. t.i.d., Promethazine with Codeine, metoprolol 25 mg daily, Xopenex q.6 hours, folic acid 1 mg daily, Vytorin 20 mg daily, aspirin 81 mg daily, and Xanax. PHYSICAL EXAMINATION: VITAL SIGNS: Blood pressure 115/69, respirations 23, pulse 98, and temperature 98.6. HEENT: Head is normocephalic. Eyes; pupils are normal. Conjunctivae slightly pale. NECK: JVP is low. Carotids are equal. THORAX: AP diameter normal. LUNGS: Few rales, few rhonchi. CARDIOVASCULAR: S1 and S2. No rub. ABDOMEN: Soft. No tenderness. No organomegaly. EXTREMITIES: No clubbing. No cyanosis. LABORATORY DATA: Shows WBC 23.7, hemoglobin 9.5, hematocrit 31.2, and platelets 128. Sodium 138, potassium 4.5, BUN 31, creatinine 0.6, random glucose 193. AST and ALT normal. Alkaline phosphatase 211. Troponin 0.29. Total protein 5.4 and albumin 2.7. Chest x-ray, left-sided perihilar mass, mild cardiomegaly. EKG showed sinus tachycardia of 111 per minute, poor progression of R in V leads. Abdomen and pelvis CT scan, mass in the lateral segment of the left lobe of the liver consistent with metastatic disease. CT scan of the lumbar vertebrae showed mild compression deformity of the superior endplate of L2, no evidence of metastatic disease, multilevel disk degeneration, and spinal stenosis. DIAGNOSES: Poorly differentiated adenocarcinoma of the lung with metastasis to the liver, exacerbation of chronic obstructive pulmonary disease, respiratory tract infection, coronary artery disease, totally occluded left anterior descending artery, but getting well collateralized from the right coronary artery on cardiac catheterization on 05/04/2017. The patient's slight troponin elevation probably not significant. On the previous admissions also she has troponin elevations; that was the reason cardiac catheterization was performed, history of hypertension in the past, and ex-tobacco abuse. PLAN: The patient is on aspirin 81 mg daily, doxycycline hyclate 100 mg IV q.12 hours, Lovenox 40 mg subcutaneous daily, cefepime 1 g IV q.12 hours, Protonix 40 mg IV daily, IV fluid saline 75 mL an hour, methylprednisolone 40 mg IV q.12 hours, and Xopenex handheld nebulizer therapy. We will add Toprol XL 25 mg p.o. daily to therapy. We will follow with you. Mara Hidalgo MD
[2017-06-12] MEDS: Budesonide 0.5 mg/2 ml Inhal Susp UD IH SCH ×2 (08:15→20:06)
[2017-06-12] MEDS: Metoprolol Succinate 25 mg XL Tab PO SCH (10:44)
[2017-06-12] MEDS: Enoxaparin 40 mg Syringe SC SCH (10:44)
[2017-06-12] MEDS: MethylPREDNISolone 40 mg Vial IV SCH ×2 (10:45→22:26)
[2017-06-12] MEDS: Cefepime 1gm in NS 100ml 1 GM/100 ML BAG IVPB SCH ×2 (10:46→22:25)
[2017-06-12] MEDS: Sodium Chloride 0.9% 1,000 ML IV SCH ×2 (10:48→10:49)
--- NOTE | 2017-06-12 10:55 | PQF SEPSIS ---
This form is a permanent part of the medical record Dr. Proctor, ID consultant internship noted sepsis secondary to pneumonia as diagnoses. Please specify if you concur, was sepsis and pneumonia ruled out, undetermined. Clarification of your documentation is requested to better reflect the severity of illness and intensity of treatment of your patient. Indicators present [] Temp < 96.8 or > 100.4 [x] WBC count > 12,000/mm3 or <000/mm3 or 10% immature neutrophils [] Heart Rate > 90 [x] Respiratory Rate > 20 [] Fever or hypothermia [] Chills [] Positive blood cultures [] Hypotension [] Metabolic acidosis (Elevated lactate level, anion gap or reduced blood pH) [] Acute confusion /Altered Mental Status [] Shock [] Other: [] Location in the medical record that reflects the above clinical findings: [] Treatment Provided: [] PHYSICIAN'S RESPONSE Based on your medical judgment of the clinical indicators outlined above, are you treating this patient for a known or suspected: [] Sepsis / Septicemia Please specify organism if known [] [] SIRS (Systemic Inflammatory Response Syndrome) [] Severe Sepsis (Sepsis with Associated Organ Dysfunction) [] Fever of Unknown Origin [] Other, please indicate: [] [x] If Unable to Determine, please check the box, sign and date. Present On Admission (POA) Indicator: [] Present at the time of admission [] Not present at the time of admission [] Clinically Undetermined In responding to this query, please exercise your independent professional judgment. The fact that a question is asked does not imply that any particular answer is desired or expected. Thank you for your clarification on this documentation. If you have any questions please call:[ ] * Thank you, [ ]Gabriela Mcrae [facility], #[id number] music rehabilitation therapist DARIEN
--- NOTE | 2017-06-12 11:17 | CP.PCM.CON ---
History of Present Illness - History of Present Illness History of Present Illness: Palliative consult requested by Dr Elizabeth Jain copies to Hitesh Hardy Reason: Goals of care and advance care planning 81 year old female with history of COPD, CAD and metastatic NSC lung cancer who presenter with productive cough shortness of breath and chest pressure when coughing. She also reports edema of lower extremities and back pain. She denied fever, nausea, vomiting, chills. PMHx: CAD,N STEMI, COPD,CHF,HTN, emphysema, Stage IV poorly differentiated adenocarcinoma of lung, (05/25/17) showed mass in LLL, mediastinal and gastric adenopathy,liver lesions,osseous metastatic disease to left iliac bone, soft tissue mass over the sacrum. Osteo arthritis, bilateral knee replacements. Social History: Long time smoker(40 pack year), no alcohol or drug use.Lives independently. Works as a school traffic guard. Family History: Non contributory. Advance Care Planning: The patient does not have an Advanced directive at home. Review of Systems : As per HPI, all other systems negative Past Patient History - Infectious Disease Hx of Infectious Diseases: None - Tetanus Immunizations Tetanus Immunization: Unknown - Past Medical History & Family History Past Medical History?: Yes - Past Social History Smoking Status: Former Smoker - CARDIAC Hx Cardiac Disorders: Yes (mi 30 yrs ago, chest pain, cad) Hx Hypercholesterolemia: Yes Hx Hypertension: Yes Hx Peripheral Edema: Yes (+4 pitting edema ble) Other/Comment: swelling to knees chronic, pt on home o2, difficulty sleeping due to sob, sleeps sitting up - PULMONARY Hx Asthma: Yes Hx Bronchitis: Yes Hx Chronic Obstructive Pulmonary Disease (COPD): Yes Hx Emphysema: Yes Hx Pneumonia: Yes Other/Comment: recently dx with left hilar mass with adenocarcinoma stage IV lung - NEUROLOGICAL Hx Neurological Disorder: No - HEENT Hx HEENT Problems: Yes (eyeglasses) Hx Glaucoma: Yes - RENAL Hx Chronic Kidney Disease: No - ENDOCRINE/METABOLIC Hx Endocrine Disorders: No - HEMATOLOGICAL/ONCOLOGICAL Hx Cancer: Yes (recent dx lung ca) Hx Metastesis: Yes (liver spleen sacral bone) Other/Comment: pt was to start radiation on 06/12/17 and start chemo on 06/14/17 - INTEGUMENTARY Other/Comment: +3 pitting edema ble slight redness - MUSCULOSKELETAL/RHEUMATOLOGICAL Hx Musculoskeletal Disorders: Yes Hx Degenerative Joint Disease: Yes Hx Falls: No Hx Osteoporosis: Yes Hx Spinal Stenosis: Yes Hx Unsteady Gait: Yes (weakness/ walker/w/ch) - GASTROINTESTINAL Hx Gastrointestinal Disorders: Yes (poor appetite, weight loss) Hx Gastroesophageal Reflux: Yes Other/Comment: pt lost 15 lbs in the last 2 wks, about 50 lbs in the last 6 months as per daughter - GENITOURINARY/GYNECOLOGICAL Hx Incontinence: Yes - PSYCHIATRIC Hx Psychophysiologic Disorder: No Hx Substance Use: No - SURGICAL HISTORY Hx Cardiac Catheterization: Yes (05/04/17) Hx Cholecystectomy: Yes Other/Comment: B/L knee replacement left knee at 70 yrs old and right knee 79 years old, pac in and out 21 yrs ago following gallbladder sx due to poor veins , ct guide lung bx 05/01/17 - ANESTHESIA Hx Anesthesia Reactions: No Hx Malignant Hyperthermia: No Meds Allergies/Adverse Reactions: Allergies Allergy/AdvReac Type Severity Reaction Status Date / Time No Known Allergies Allergy Verified 05/13/17 09:45 - Medications Medications: Current Medications Acetaminophen (Tylenol 325mg Tab) 650 mg PO Q6H PRN PRN Reason: Fever >100.4 F Albuterol/Ipratropium (Duoneb 3 Mg/0.5 Mg (3 Ml) Ud) 3 ml IH Q2H PRN PRN Reason: Shortness of Breath Last Admin: 06/12/17 08:15 Dose: 3 ml Alprazolam (Xanax) 0.25 mg PO BID PRN; Protocol PRN Reason: Anxiety Last Admin: 06/12/17 10:45 Dose: 0.25 mg Aspirin (Aspirin Chewable) 81 mg PO DAILY [facility] Last Admin: 06/12/17 10:44 Dose: 81 mg Budesonide (Pulmicort Respules) 0.5 mg IH [id number] [facility] Last Admin: 06/12/17 08:15 Dose: 0.5 mg Clotrimazole (Mycelex Johnny) 10 mg PO 5XD [facility] Last Admin: 06/12/17 10:45 Dose: 10 mg Enoxaparin Sodium (Lovenox) 40 mg SC DAILY [facility] PRN Reason: Protocol Last Admin: 06/12/17 10:44 Dose: 40 mg Folic Acid (Folic Acid) 1 mg PO DAILY [facility] Last Admin: 06/12/17 10:46 Dose: 1 mg Sodium Chloride (Sodium Chloride 0.9%) 1,000 mls @ 75 mls/hr IV .[id number] [facility] Last Admin: 06/12/17 10:49 Dose: 75 mls/hr Cefepime HCl (Maxipime 1gm) 1 gm in 100 mls @ 100 mls/hr IVPB Q12 [facility] PRN Reason: Protocol Last Admin: 06/12/17 10:46 Dose: 100 mls/hr Doxycycline Hyclate 100 mg/ (Sodium Chloride) 100 mls @ 100 mls/hr IVPB Q12 ERMA PRN Reason: Protocol Last Admin: 06/12/17 10:47 Dose: 100 mls/hr Latanoprost (Xalatan Opht) 0 ml OU HS [facility] Last Admin: 06/11/17 22:09 Dose: 2.5 ml Levalbuterol HCl (Xopenex) 0.63 mg IH [id number] [facility] Methylprednisolone (Solu-Medrol) 40 mg IV Q12 [facility] Last Admin: 06/12/17 10:45 Dose: 40 mg Metoprolol Succinate (Toprol Xl) 25 mg PO BRK [facility] Last Admin: 06/12/17 10:44 Dose: 25 mg Ondansetron HCl (Zofran Inj) 4 mg IVP Q6H PRN PRN Reason: Nausea/Vomiting Last Admin: 06/12/17 06:52 Dose: 4 mg Pantoprazole Sodium (Protonix Inj) 40 mg IVP DAILY [facility] Last Admin: 06/12/17 10:46 Dose: 40 mg Physical Exam - Constitutional Appears: Cachectic, Chronically Ill - Head Exam Head Exam: NORMAL INSPECTION - Eye Exam Eye Exam: Normal appearance, PERRL - ENT Exam ENT Exam: Mucous Membranes Moist, Normal Oropharynx - Neck Exam Neck exam: Positive for: Normal Inspection - Respiratory Exam Respiratory Exam: Decreased Breath Sounds, Rhonchi Additional comments: dyspnea - Cardiovascular Exam Cardiovascular Exam: Tachycardia, +S1, +S2 - GI/Abdominal Exam GI & Abdominal Exam: Normal Bowel Sounds, Soft Additional comments: no tenderness - Extremities Exam Additional comments: 3+ edema of both lower extremities - Back Exam Back exam: vertebral tenderness - Neurological Exam Neurological exam: Alert, Oriented x3 - Skin Skin Exam: Dry, Pallor - Additional Findings Additional findings: Palliative performance scale rating 40% Results - Vital Signs Recent Vital Signs: Last Vital Signs Temp 98.6 F 12/18/17 06:00 Pulse 98 H 06/12/17 10:44 Resp 29 H 06/12/17 09:40 BP 128/80 06/12/17 10:44 Pulse Ox 95 06/12/17 06:00 - Labs Result Diagrams: 06/11/17 06:45 06/11/17 06:45 Labs: Laboratory Results - last 24 hr 06/11/17 06:30 Procalcitonin 0.30 Assessment & Plan - Assessment and Plan (Free Text) Assessment: 81 year old female with history of COPD,emphysema,NE and metastatic NSCL cancer admitted with COPD exacerbation, hypotension, shortness of breath, hypoxia and cachexia . Ms. Mayen is known to me from previous admission. She appears weaker and more cachectic than when we meet in April. She has a chronic cough. She needs assistance with ADL's. She is anxious, complaining of shortness of breath and weakness. She was given Ativan earlier and is now very tired, stating she just wants to rest. Doesn't want to discuss advance care planning today. Psychosocial support given. Will reconvene tomorrow to discuss future goals of care and advance care planning. Plan: Palliative support in establishing goals of care and advance care planning
--- NOTE | 2017-06-12 12:53 | CON ---
DATE: 06/12/2017 PULMONARY CONSULTATION REASON FOR CONSULTATION: Cough. REFERRING PHYSICIAN: Dr. Proctor. HISTORY OF PRESENT ILLNESS: The patient is an 81-year-old female, with past medical history significant for advanced chronic obstructive pulmonary disease, on home oxygen, advanced metastatic adenocarcinoma of the lung (positive splenic and hepatic mets), osteoporosis, coronary artery disease, status post recent myocardial infarction, hypertension, who presents to [facility] with worsening shortness of breath at rest, dyspnea on exertion, cough, and yellowish sputum production for the past 4 days. There is no history of chest pain, coughing up of blood, or chest pain - made worse with deep respirations. The patient does complain of back pain. The patient did present to [facility] with a fever. No history of chills or infectious exposure. No history of night sweats. There is a definite decrease in the patient's appetite with weight loss as of recent. No history of calf pains. No history of syncope or diaphoresis. No history of recent travel or trauma. REVIEW OF SYSTEMS: No history of nausea, vomiting or diarrhea. No acute urinary symptoms. No new neurologic complaints. Rest of the review of systems is negative. ALLERGIES: NO KNOWN ALLERGIES. SOCIAL HISTORY: Positive for extensive tobacco usage, and negative for alcohol. FAMILY HISTORY: No inheritable diseases. HOME MEDICATIONS: Include Cardizem, vancomycin, Nitro-Dur, Toprol, Xopenex, Vytorin, Pulmicort, Dymista nasal spray Ecotrin, and Xanax. PHYSICAL EXAMINATION: GENERAL: The patient is mildly short of breath, but in no acute distress. She appears very weak looking. VITAL SIGNS: Temperature is 98.6, pulse on the monitor is 107, respiratory rate 20/22, blood pressure 110/62. Oxygen saturation on BiPap is 95%. HEENT: Normocephalic, atraumatic. NECK: No JVD. CARDIOVASCULAR: Systolic ejection murmur at the lower left sternal border. No S3 gallop. LUNGS: Decreased breath sounds at the bases. Mild bilateral rhonchi and wheezing are appreciated. EXTREMITIES: Positive for mild edema. No cyanosis, no clubbing. Calves are nontender to palpation. GI: Abdomen is soft, nontender and nondistended. Bowel sounds are positive. SKIN: No acute rash. NEUROLOGIC: Exam limited at the present time. PERTINENT LABORATORY DATA: Chest x-ray was done on 06/10/2017 and reviewed. There is no acute change from the previous film. CT scan of the abdomen and pelvis was also done. There is no change compared to the previous CT scan. CBC: White count 23.7, hemoglobin 9.5, hematocrit 31.2, platelets of 128,000. INR 1.68. Complete metabolic profile: BUN 31, creatinine 0.6, glucose 193, alkaline phosphatase to 11, protein 5.4, albumin 2.7. Rest of the metabolic profile is within normal limits. Peak troponin during the admission 0.29. Peak B-type natriuretic peptide - 6740. IMPRESSION: 1. Recurrent bronchitis. 2. Advanced chronic obstructive pulmonary disease. 3. Sepsis syndrome. 4. Advanced lung cancer-- with liver and splenic metastasis. 5. Coronary artery disease. 6. Chronic anemia. PLAN: The patient presents to [facility] with a 4-day history of worsening pulmonary symptoms. In addition, she also complains of progressive weakness, feeling fatigued, and back pain. She was thus admitted for additional evaluation. I did review the chest x-ray as above. There is no significant change from the previous chest x-ray. I have also reviewed the CT scan of the abdomen and pelvis. Again, there is no significant change from the previous CT scan. On physical exam, the patient is in [id number] bronchospasm. I will continue with the current intravenous steroids, but change the nebulizer treatments to a scheduled dosage. I have also discussed the case with the respiratory therapist at length. The patient does not want to wear the BiPAP mask consistently, so I will change the BiPAP to p.r.n. for shortness of breath at night/bedtime. I have also reviewed the laboratory data. A significant leukocytosis is noted. The patient has been pancultured and placed on antibiotic therapy - as per Infectious Disease. Input by Dr. Simeon is noted. Cardiology evaluation with Dr. Hidalgo is also noted. The patient does feel a little bit better this morning - compared to the past few days. However, unfortunately, the overall status/prognosis for this patient remains very poor. I will discuss the above with the attending physician later this morning. Thank you very much for this pulmonary consultation. Donato Razo MD [facility]AR[facility]
--- NOTE | 2017-06-12 13:38 | PN ---
DATE: REASON FOR CONSULTATION AND FOLLOWUP: Coronary artery disease, occluded LAD chronic since 12/22/2005, history of recently lung CA, admitted with shortness of breath, possible upper respiratory tract infection, cardiac evaluation. SUBJECTIVE: The patient denies any chest pain, but complaining of mild shortness of breath, getting very weak. OBJECTIVE: GENERAL: Not in apparent distress, lying flat in the bed. VITAL SIGNS: As follows, temperature afebrile, heart rate 98, and blood pressure 128/80. HEENT: PERRLA. Extraocular muscles intact. NECK: Supple. No carotid bruits or thyromegaly. CHEST: Clear to auscultation. HEART: S1 and S2. Regular. ABDOMEN: Soft. EXTREMITIES: Clubbing and cyanosis negative. LABORATORY DATA: Blood workup as follows: WBC 23.7, hemoglobin 9.5, hematocrit 31.2, and platelet count 128. Chemistry shows sodium 138, potassium 4.5, chloride 102, carbon dioxide 27, anion gap of 13, BUN 31, and creatinine 0.6. Total protein 5.7, albumin 2.7, and albumin globulin ratio 1. IMPRESSION: Upper respiratory tract infection, history of coronary artery disease status post occluded left anterior descending artery in 12/22/2005, since last catheterization 05/04/2017 that shows occluded LAD since 12/22/2005, no change noted; history of recently lung cancer with metastasis; upper respiratory tract infection; chronic obstructive pulmonary disease. RECOMMENDATIONS: Aggressive medical treatment. We will discontinue telemetry. No further cardiac workup was planned. Thank you Dr. Proctor for providing the opportunity in taking care of the patient, Valeria Mayen. We will follow with you. We will repeat the previous workup. Mara Norman MD
[2017-06-12] MEDS: Levalbuterol 0.63 MG/3 ML Inhal Soln UD IH SCH ×2 (14:11→20:06)
--- NOTE | 2017-06-12 15:04 | PN ---
SUBJECTIVE: The patient is 81-year-old, seen and examined, currently on high-flow oxygen, getting nebulizer treatment, shortness of breath is little better, pulse ox 90%. PHYSICAL EXAMINATION: VITAL SIGNS: The patient is afebrile. Pulse 98, respirations 18, blood pressure 128/80. LUNGS: Bilateral fair airflow. No rhonchi or crackle. HEART: S1, S2 audible. ABDOMEN: Soft and nontender. No rebound. No guarding. NEUROLOGIC: Patient is awake, alert, oriented, communicative. EXTREMITIES: Bilateral leg +2 edema. LABORATORY EXAMINATION: WBC is 20.7, hemoglobin 9.8, hematocrit 31.2, platelet of 128. Chemistry: Sodium 138, potassium 4.5, chloride 102, CO2 of 27, BUN 31, creatinine 0.6, blood sugar of 193. LFTs are within normal limits. Blood cultures and urine cultures are negative. ASSESSMENT: 1. Metastatic lung carcinoma. 2. Chronic obstructive pulmonary disease. 3. Hypoxia. 4. Bronchospasm. 5. Coronary artery disease, status post with total right coronary occlusion with lateral. 6. Poorly differentiated adenocarcinoma of the lung. 7. Deconditioning. 8. Significant weight loss. PLAN: Currently, the patient is on aspirin. She is on doxycycline. She is getting nebulizer treatments. She is on DVT prophylaxis. Maxipime has been started. We will order for procalcitonin. Order for stool for C. difficile. The patient is scheduled to have radiation therapy today. We will follow her clinical status closely. Demarcus Proctor MD
--- NOTE | 2017-06-12 18:15 | PN ---
DATE: 06/12/2017 PHYSICAL EXAMINATION: VITAL SIGNS: Temperature is 98, blood pressure is 120/80, respiratory rate of 20. HEENT: Unremarkable. NECK: Supple. LUNGS: Decreased breath sounds. HEART: Normal S1 and S2. ABDOMEN: Soft, nontender. LABORATORY DATA: Reveals blood cultures are negative, urine cultures are negative. ASSESSMENT AND PLAN: An 81-year-old female, seen earlier this morning in room 270, bed 2 with a poorly differentiated adenocarcinoma of the lung with metastases to the liver, spleen and sacral bone, on home O2 therapy and osteoporosis. The patient with hypertension, chronic obstructive lung disease, asthma, emphysema, history of coronary artery disease and myocardial infarction, high cholesterol, hypertension, end-stage obstructive lung disease, admitted on this admission with severe sepsis, healthcare-associated pneumonia, on doxycycline and cefepime on day #3 with a procalcitonin of 0.30. Upon discharge, may discontinue the cefepime and complete with p.o. doxycycline. Cultures thus far are negative. The patient does have leukocytosis. The patient is on Solu-Medrol. Toi Simeon MD
--- NOTE | 2017-06-12 19:09 | CARD ---
APPROVED REPORT EXAM: Two-dimensional and M-mode echocardiogram with Doppler and color Doppler. INDICATION Cardiac Disease: CAD COPD LVFX 2D DIMENSIONS IVSd0.8 (0.7-1.1cm)LVDd3.6 (3.9-5.9cm) PWd1.1 (0.7-1.1cm)LVDs2.6 (2.5-4.0cm) FS (%) 27.2 %LVEF (%)54.0 (>50%) M-Mode DIMENSIONS Aortic Root4.00 (2.2-3.7cm)Aortic Cusp Exc.1.60 (1.5-2.0cm) Aortic Valve AoV Peak Cwnaubcf573.0cm/[place] Peak GR.20mmHgLVOT Peak Krawpsoa257.0cm/s LVOT VTI23.30cmAI P 1/2 Jahf384xv Mitral Valve E/A ratio0.0 TDI E/Lateral E'0.0E/Medial E'0.0 Pulmonary Valve PV Peak Telhtnam22.4cm/sPV Peak Grad.1mmHg Tricuspid Valve TR Peak Gnxogijy251md/sRAP [id number] Peak Gr.67mmHg [id number] LEFT VENTRICLE The left ventricle is normal size. There is normal left ventricular wall thickness. The left ventricular function is normal.EF-55% There is mild hypokinesis in the apical anterior wall. Transmitral Doppler flow pattern is Grade II-pseudonormal filling dynamics. No left ventricle thrombus noted on this study. There is no ventricular septal defect visualized. There is no left ventricular aneurysm. There is no mass noted in the left ventricle. RIGHT VENTRICLE The right ventricle is moderately to severely dilated. There is normal right ventricular wall thickness. Systolic function of RV is moderately reduced. ATRIA The left atrium is borderline dilated. The right atrium is moderately dilated. The interatrial septum is intact with no evidence for an atrial septal defect. AORTIC VALVE The aortic valve is thickened but opens well. The aortic valve is moderately sclerotic. There is mild aortic regurgitation. Aortic Sclerosis Vs Mild As There is no aortic valvular vegetation. MITRAL VALVE The mitral valve is thickened but opens well. Mitral annular calcification is moderate. Mitral regurgitation is mild to moderate. There is no mitral valve stenosis. There is no evidence of mitral valve prolapse. TRICUSPID VALVE The tricuspid valve leaflets are thickened , but open well. There is moderate to severe tricuspid regurgitation.RVSP-77 of Hg. There is moderate to severe pulmonary hypertension. There is no tricuspid valve stenosis. There is no tricuspid valve prolapse or vegetation. PULMONIC VALVE The pulmonic valve is mildly thickened. There is trace to mild pulmonic valvular regurgitation. There is no pulmonic valvular stenosis. GREAT VESSELS The aortic root is normal in size. The ascending aorta is normal in size. The pulmonary artery is normal. The IVC is dilated. PERICARDIAL EFFUSION There is no pleural effusion. There is no pericardial effusion. <Conclusion> The left ventricle is normal size. There is normal left ventricular wall thickness. The left ventricular function is normal.EF-55% The right ventricle is moderately to severely dilated. Systolic function of RV is moderately reduced. There is mild aortic regurgitation. Aortic Sclerosis Vs Mild As Mitral regurgitation is mild to moderate. There is moderate to severe tricuspid regurgitation.RVSP-77 of Hg. There is moderate to severe pulmonary hypertension. There is no pericardial effusion. The IVC is dilated.
[2017-06-12] MEDS: Latanoprost 2.5 ml Opht Soln OU SCH (23:07)
[2017-06-13] MEDS: Levalbuterol 0.63 MG/3 ML Inhal Soln UD IH SCH ×4 (01:05→20:19)
[2017-06-13] MEDS: Sodium Chloride 0.9% 1,000 ML IV SCH (07:07)
[2017-06-13 07:19] LABS: BASO # 0.01 K/mm3 (0.0-2.0); GRAN # 25.8 (1.4-6.5); GRAN % 93.8 % (50.0-68.0); HEMATOCRIT 31.4 % (36.0-48.0); LYMPH # 0.8 (1.2-3.4); LYMPH % 2.9 % (22.0-35.0); MEAN CELL VOLUME 92.6 fl (80.0-105.0); MEAN CORPUSCULAR HEMOGLOBIN 27.4 pg (25.0-35.0); MEAN CORPUSCULAR HGB CONC 29.6 g/dl (31.0-37.0); MEAN PLATELET VOLUME 9.4 fl (7.0-11.0); MONO # 0.9 (0.1-0.6); MONO % 3.3 % (1.0-6.0); RED CELL DISTRIBUTION WIDTH 20.3 % (11.5-14.5)
[2017-06-13 07:47] LABS: WHITE BLOOD COUNT 27.5 10^3/ul (4.5-11.0)
[2017-06-13 07:48] LABS: ALKALINE PHOSPHATASE 212 U/L (38-126); ALT/SGPT 41 U/L (7-56); AST/SGOT 30 U/L (14-36); BILIRUBIN,TOTAL 0.5 mg/dL (0.2-1.3); BLOOD UREA NITROGEN 20 mg/dL (7-21); CALCIUM 8.6 mg/dL (8.4-10.5); CARBON DIOXIDE 26 mmol/L (21-33); CHLORIDE 108 mmol/L (98-107); GFR AFRICAN-AMERICAN > 60; GLUCOSE,RANDOM 195 mg/dL (70-110); POTASSIUM 4.3 mmol/L (3.6-5.0); SODIUM 139 mmol/L (132-148); TOTAL PROTEIN 5.3 g/dL (5.8-8.3)
[2017-06-13] MEDS: Budesonide 0.5 mg/2 ml Inhal Susp UD IH SCH ×2 (08:11→20:19)
--- NOTE | 2017-06-13 09:58 | PN ---
PULMONARY NOTE DATE: 06/13/2017 SUBJECTIVE: The patient appears comfortable this morning. She is mildly short of breath, but in no acute distress. She appears very weak looking. PHYSICAL EXAMINATION VITAL SIGNS: Last temperature recorded is 100.9, pulse on the monitor is 102, respiratory rate 20/22, blood pressure 100/55. Oxygen saturation on high-flow delivery is 96%. HEENT: Normocephalic, atraumatic. No JVD. CARDIOVASCULAR: Systolic ejection murmur at the lower left sternal border. No S3 gallop. LUNGS: Decreased breath sounds at the bases. Still with mild rhonchi and wheezing bilaterally. EXTREMITIES: Positive for mild edema. No cyanosis, no clubbing. Calves are nontender to palpation. GI: Abdomen is soft, nontender and nondistended. Bowel sounds are positive. SKIN: No acute rash. NEUROLOGIC: Limited at the present time. IMPRESSION: 1. Recurrent bronchitis. 2. Advanced chronic obstructive pulmonary disease. 3. Sepsis syndrome. 4. Advanced lung cancer with liver and splenic metastasis. 5. Coronary artery disease. 6. Chronic anemia. PLAN: The patient appears comfortable this morning. She is mildly short of breath, but in no acute distress. She does remain very weak appearing. I did discuss the case with the night nurse at length. The night nurse stated that the patient wore her BiPAP most of the night. She is now on high-flow delivery with an oxygen saturation of 96%. On physical exam, mild to moderate bronchospasm remains. I will continue the current nebulizer treatments, inhaled steroids and intravenous steroids for now. The patient also remains on antibiotic therapy - as per Infectious Disease. Input by Dr. Simeon is noted. Input by oncology is also noted. The patient was marked for radiation therapy yesterday. Clinical status of the patient is somewhat improved - compared to the initial presentation. However, again, unfortunately, the overall status/prognosis for this patient is very poor. I will discuss the above with the attending physician.. Donato Razo MD MTDTawnya
[2017-06-13] MEDS: Metoprolol Succinate 25 mg XL Tab PO SCH (11:06)
[2017-06-13] MEDS: MethylPREDNISolone 40 mg Vial IV SCH ×2 (11:07→21:12)
[2017-06-13] MEDS: Enoxaparin 40 mg Syringe SC SCH (11:07)
[2017-06-13] MEDS: Pantoprazole 40 mg EC Tab PO SCH (11:07)
[2017-06-13] MEDS: Cefepime 1gm in NS 100ml 1 GM/100 ML BAG IVPB SCH ×2 (11:08→21:17)
--- NOTE | 2017-06-13 12:15 | CP.PCM.PN ---
Subjective - Date & Time of Evaluation Date of Evaluation: 06/13/17 Time of Evaluation: 11:00 - Subjective Subjective: Alert, oriented to place and self. Dyspnea on exertion. Objective - Vital Signs/Intake and Output Vital Signs (last 24 hours): Temp Pulse Resp BP Pulse Ox 100.5 F H 99 H 26 H 109/55 L 96 06/13/17 08:36 06/13/17 08:36 06/13/17 11:10 06/13/17 08:36 06/13/17 08:36 Intake and Output: 06/13/17 06/13/17 06:59 18:59 Intake Total 845 Output Total 350 Balance 495 - Medications Medications: Current Medications Acetaminophen (Tylenol 325mg Tab) 650 mg PO Q6H PRN PRN Reason: Fever >100.4 F Last Admin: 06/13/17 01:57 Dose: 650 mg Alprazolam (Xanax) 0.25 mg PO BID PRN; Protocol PRN Reason: Anxiety Aspirin (Aspirin Chewable) 81 mg PO DAILY [facility] Last Admin: 06/13/17 11:05 Dose: 81 mg Budesonide (Pulmicort Respules) 0.5 mg IH [id number] [facility] Last Admin: 06/13/17 08:11 Dose: 0.5 mg Clotrimazole (Mycelex Johnny) 10 mg PO 5XD [facility] Last Admin: 06/13/17 11:07 Dose: 10 mg Enoxaparin Sodium (Lovenox) 40 mg SC DAILY [facility] PRN Reason: Protocol Last Admin: 06/13/17 11:07 Dose: 40 mg Folic Acid (Folic Acid) 1 mg PO DAILY [facility] Last Admin: 06/13/17 11:06 Dose: 1 mg Furosemide (Lasix) 40 mg PO DAILY [facility] Sodium Chloride (Sodium Chloride 0.9%) 1,000 mls @ 75 mls/hr IV .[id number] [facility] Last Admin: 06/13/17 07:07 Dose: 75 mls/hr Cefepime HCl (Maxipime 1gm) 1 gm in 100 mls @ 100 mls/hr IVPB Q12 ERMA PRN Reason: Protocol Last Admin: 06/13/17 11:08 Dose: 100 mls/hr Doxycycline Hyclate 100 mg/ (Sodium Chloride) 100 mls @ 100 mls/hr IVPB Q12 ERMA PRN Reason: Protocol Last Admin: 06/13/17 11:08 Dose: 100 mls/hr Latanoprost (Xalatan Opht) 0 ml OU HS [facility] Last Admin: 06/12/17 23:07 Dose: 2.5 ml Levalbuterol HCl (Xopenex) 0.63 mg IH [id number] [facility] Last Admin: 06/13/17 08:11 Dose: 0.63 mg Methylprednisolone (Solu-Medrol) 40 mg IV Q12 [facility] Last Admin: 06/13/17 11:07 Dose: 40 mg Metoprolol Succinate (Toprol Xl) 25 mg PO BRK [facility] Last Admin: 06/13/17 11:06 Dose: 25 mg Ondansetron HCl (Zofran Inj) 4 mg IVP Q6H PRN PRN Reason: Nausea/Vomiting Last Admin: 06/12/17 06:52 Dose: 4 mg Pantoprazole Sodium (Protonix Ec Tab) 40 mg PO DAILY [facility] Last Admin: 06/13/17 11:07 Dose: 40 mg - Labs Labs: 06/13/17 06:00 06/13/17 06:00 PT 18.7 SECONDS (9.4-12.5) H 06/10/17 10:35 INR 1.68 (0.93-1.08) H 06/10/17 10:35 APTT 26.2 Seconds (25.1-36.5) 06/10/17 10:35 - Constitutional Appears: Cachectic, Chronically Ill - Head Exam Head Exam: NORMAL INSPECTION - Eye Exam Eye Exam: Normal appearance, PERRL - ENT Exam ENT Exam: Mucous Membranes Moist, Normal Oropharynx - Respiratory Exam Respiratory Exam: Decreased Breath Sounds, Rhonchi, Wheezes - Cardiovascular Exam Cardiovascular Exam: Tachycardia, +S1, +S2 - GI/Abdominal Exam GI & Abdominal Exam: Soft, Normal Bowel Sounds - Extremities Exam Extremities Exam: Pedal Edema - Back Exam Back Exam: NORMAL INSPECTION - Psychiatric Exam Psychiatric exam: Anxious - Skin Skin Exam: Dry, Pallor Assessment and Plan - Assessment and Plan (Free Text) Assessment: 81 year old female with history of Stage IV NSCL cancer who as admitted with COPD exacerbation,hypoxia,shortness of breath, cough and edema of lower extremities. The patient is alert and oriented. She remembers meeting with me in the past. At that time we discussed goals of care. Today, the patient and I spoke at length about resuscitation status and goals of care. The patient knows she is very ill but is willing to try all options for care, including intubation and CPR. Burdens of intubation and CPR explained. Patient verbalizes understanding of outcomes. States if she doesn't improve than her family will "pull the plug and stop machines". Patient states that she had this conversation with both her son and daughter. Ms. Mayen also wishes to continue with chemotherapy and radiation therapy. She is not interested in hospice care at this time. Psychosocial support provided. Time spent with patient in goals of care discussion, 20 minutes Plan: Palliative support in advance care planning
[2017-06-13 14:35] LABS: URINE BILIRUBIN NEGATIVE (NEGATIVE); URINE BLOOD LARGE (NEGATIVE); URINE GLUCOSE (UA) NEGATIVE (NEGATIVE); URINE KETONE NEGATIVE (NEGATIVE); URINE LEUKOCYTE ESTERASE TRACE Leu/uL (NEGATIVE); URINE PROTEIN 30 mg/dL (<30 mg/dL); URINE UROBILINOGEN 0.2 E.U./dL (<1 E.U./dL)
--- NOTE | 2017-06-13 14:49 | PN ---
DATE: 06/13/2017 REASON FOR CONSULTATION: Followup coronary artery disease, occluded LAD since 12/22/2005, lung CA, admitted with shortness of breath, possibly secondary to respiratory tract infection, cardiac evaluation. SUBJECTIVE: The patient denies any chest pain, but complaint of shortness of breath on high flow oxygen. PHYSICAL EXAMINATION: GENERAL: Not in apparent distress. She is on high flow oxygen. VITAL SIGNS: Temperature 100.5, heart rate 99, blood pressure 109/55. HEENT: PERRLA. Extraocular muscles intact. NECK: Supple. No carotid bruits or thyromegaly. CHEST: Clear to auscultation. HEART: S1 and S2, regular. ABDOMEN: Soft. EXTREMITIES: Clubbing and cyanosis negative. LABORATORY DATA: Blood workup as follows: WBC is 27.1, hemoglobin 9.7, hematocrit 31.4, platelets count 165. Chemistry shows sodium 130, potassium 4.2, chloride 108, carbon dioxide 26, anion gap of 9, BUN 20, creatinine 0.5. Total protein is 5.3, albumin 2.6, albumin globulin ratio 1.0. The patient had echocardiography done yesterday that showed ejection fraction 55%, right ventricle moderate to severely dilated, aortic sclerosis with mild , mild aortic regurgitation, mqsb-oe-xerrenuc mitral regurgitation, wromnquw-cm-piygvt tricuspid regurgitation, RV systolic pressure of 77 dated on 06/12/2017 that is yesterday. IMPRESSION: An 81-year-old female with past medical history significant for coronary artery disease, status post one-vessel, left anterior descending totally occluded since 12/22/2005, who recently had cardiac catheterization on 05/04/2017 because of dul-YH-xwmspozwk myocardial infarction essentially unchanged catheter on 12/22/2005, mild aortic stenosis, dajn-sp-okdnzlys mitral regurgitation, mild aortic regurgitation, zofnwpqr-gu-tmbcqh tricuspid regurgitation, right ventricular systolic pressure of 77, preserved left ventricular function, lung cancer, shortness of breath probably most likely secondary to underlying pulmonary condition. CVS status is stable. History of , but now the patient is normal sinus. Continue low-dose beta-reggie. Continue gentle diuretics as needed. Continue prednisone. Continue aspirin. We will avoid beta-2 agonist, DuoNeb nebulizer rather than give Xopenex atrial fibrillation. We will put low dose of diuretics. The patient has little troponin positive which may be secondary to demand and supply mismatch, post recent catheterization and one-vessel left anterior descending totally occluded, very well collateralized from right coronary artery, which is essentially unchanged from 2006. No further cardiac invasive workup or noninvasive is planned. Aggressive medical treatment. We will put low-dose of Lasix p.o. Keep a negative fluid balance and discontinue albuterol and encourage to give Xopenex to prevent tachycardia and going into atrial fibrillation. Mara Norman MD
[2017-06-13 15:17] LABS: URINE APPEARANCE CLEAR (CLEAR); URINE COLOR YELLOW (YELLOW)
--- NOTE | 2017-06-13 15:19 | PN ---
DATE: 06/13/2017 SUBJECTIVE: The patient is in bed, in no acute distress, nontoxic. PHYSICAL EXAMINATION: VITAL SIGNS: Temperature is 98, blood pressure is 109/50, T-max is 100.5, respiratory rate of 18. HEENT: Unremarkable. NECK: Supple. LUNGS: Have decreased breath sounds. HEART: Normal S1, S2. ABDOMEN: Soft, nontender. LABORATORY DATA: White count of 27,000, hemoglobin of 9, platelets of 165 and the chemistries reveals a BUN of 20, creatinine of 0.5 and urinalysis is noted. Toxicology is noted. Blood cultures are no growth. Urine cultures are no growth. ASSESSMENT AND PLAN: This is an 81-year old female with past medical history of poorly differentiated metastatic adenocarcinoma of lung with osteoporosis and mets to the liver, spleen and sacral bone and on home O2 therapy and hypertension and chronic for lung disease, asthma, emphysema and with severe sepsis with a mass in the lateral aspect consistent with metastatic disease and secondary to healthcare-associated pneumonia and with negative blood cultures, negative urine cultures and procalcitonin of 0.30. New fevers may be from the IV site, we will change the doxycycline to p.o. and does cause burning. We will repeat the pancultures.. Overall, prognosis is quite poor for this patient who appears to be end-stage malignancy. We will repeat blood, sputum, urinalysis, urine culture and procalcitonin. We will follow closely with you. Vaishnavi Suarez's note is reviewed. Dr. Razo's progress note is also reviewed. Toi Simeon MD
[2017-06-13 15:58] LABS: URINE BACTERIA MANY (NEG); URINE RBC TNTC /hpf (0-2)
[2017-06-13 15:59] LABS: URINE RED BLOOD CELL CAST 0 - 2 /hpf
[2017-06-13] MEDS: guaiFENesin-Codeine 100-10mg/5ml Syrup (5 ml) UD PO PRN (16:31)
[2017-06-13] MEDS: POLYETHYLENE GLYCOL 3350 17 GM/Dose PACKET PO SCH (18:51)
--- NOTE | 2017-06-13 19:33 | PN ---
DATE: SUBJECTIVE: The patient is an 81-year-old, seen and examined, has shortness of breath, on high flow oxygen, complain of persistent cough, asking for some antitussives, poor oral intake. PHYSICAL EXAMINATION VITAL SIGNS: She has temperature 100.5, pulse 99, respirations 22, blood pressure 109/55. LUNGS: Bilateral expiratory rhonchi. ABDOMEN: Soft and nontender. No rebound. No guarding. NEUROLOGIC: She is awake and alert. Able to communicative, but short of breath. LABORATORY DATA: WBC is 27.5, hemoglobin 9.3, hematocrit 31.4, platelet of 165. Chemistry: Sodium 139, potassium 4.3, chloride 108, CO2 of 26, BUN 20, creatinine 0.5 blood sugar of 195. ASSESSMENT: 1. Chronic obstructive pulmonary disease exacerbation. 2. Metastatic cancer of the lung with liver metastasis. 3. Exertional dyspnea and hypoxia. 4. Coronary artery disease status post angioplasty. PLAN: We will continue the patient on current medications including IV antibiotic, nebulizer treatment, antitussives, SCDs for DVT prophylaxis since the patient is high risk and encourage out of bed to chair. We will follow the patient. Demarcus Proctor MD
--- NOTE | 2017-06-13 20:30 | PN ---
DATE: 06/13/2017 This is [facility] visit on the medical floor. For Dr. Jain SUBJECTIVE: The patient is an 81-year-old female seen sitting up in bed with her daughter at the bedside, status post radiation earlier today with the patient's chest marked for her radiation treatments. 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 She also was known to have tumor compression of the left main stem bronchus with exacerbation of COPD. PHYSICAL EXAMINATION: VITAL SIGNS; Temperature 98.4, pulse 103, respirations 21, blood pressure 145/85, pulse ox 90%. She has BiPAP on. HEENT: Unremarkable. NECK: Supple. HEART: Regular rate. LUNGS: Clear. ABDOMEN: Soft, obese, nontender. EXTREMITIES: No edema. SKIN: Warm and dry. NEUROLOGIC: Awake, alert, and oriented x3. LABORATORY DATA: Patient's labs were done. White blood cell count of 27.5, hemoglobin 9.3, hematocrit 31.4, platelet count of 165,000 with chem metabolic panel within normal limits except for nonfasting glucose of 195, alk phos of 212. Her urinalysis showed large amount of blood with her urine culture showing no growth. Blood cultures also negative after 3 days. Patient's echocardiogram done yesterday, it was read as ejection fraction of 56%, fairly dilated right ventricle, aktrztkm-yz-valqwv pulmonary hypertension, cdqizgnt-ch-vfsyus tricuspid regurgitation. 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 PLAN: After conversation with doctor, continue radiation treatment as per Dr. Shari Barahona, with nebulized treatments and antibiotics, IV steroids to continue with consideration for chemotherapy to begin as per Dr. Jain's recommendations. Prognosis for this patient is guarded. We will monitor clinically with labs. Dereck Leyva MD [facility] # [id number]
[2017-06-13] MEDS: Latanoprost 2.5 ml Opht Soln OU SCH (21:12)
[2017-06-13] MEDS: Clotrimazole/Betamethasone Cream(15 gm) TOP SCH (22:15)
[2017-06-14] MEDS: Sodium Chloride 0.9% 1,000 ML IV SCH (00:52)
[2017-06-14] MEDS: guaiFENesin-Codeine 100-10mg/5ml Syrup (5 ml) UD PO PRN ×2 (00:52→16:10)
[2017-06-14 06:37] LABS: HEMATOCRIT 32.8 % (36.0-48.0); MEAN CELL VOLUME 93.2 fl (80.0-105.0); MEAN CORPUSCULAR HEMOGLOBIN 27.6 pg (25.0-35.0); MEAN CORPUSCULAR HGB CONC 29.6 g/dl (31.0-37.0); MEAN PLATELET VOLUME 9.3 fl (7.0-11.0); RED CELL DISTRIBUTION WIDTH 20.2 % (11.5-14.5)
[2017-06-14 06:46] LABS: ALKALINE PHOSPHATASE 241 U/L (38-126); ALT/SGPT 41 U/L (7-56); AST/SGOT 36 U/L (14-36); BILIRUBIN,TOTAL 0.7 mg/dL (0.2-1.3); BLOOD UREA NITROGEN 18 mg/dL (7-21); CALCIUM 8.8 mg/dL (8.4-10.5); CARBON DIOXIDE 25 mmol/L (21-33); CHLORIDE 108 mmol/L (98-107); GFR AFRICAN-AMERICAN > 60; GLUCOSE,RANDOM 241 mg/dL (70-110); POTASSIUM 4.1 mmol/L (3.6-5.0); SODIUM 140 mmol/L (132-148); TOTAL PROTEIN 5.3 g/dL (5.8-8.3)
[2017-06-14 06:56] LABS: WHITE BLOOD COUNT 26.3 10^3/ul (4.5-11.0)
[2017-06-14] MEDS: Budesonide 0.5 mg/2 ml Inhal Susp UD IH SCH ×2 (08:35→18:56)
[2017-06-14] MEDS: Levalbuterol 0.63 MG/3 ML Inhal Soln UD IH SCH ×3 (08:35→18:56)
--- NOTE | 2017-06-14 08:47 | PN ---
DATE: 06/14/2017 PULMONARY NOTE SUBJECTIVE: The patient appears comfortable this morning. She is mildly short of breath, but in no acute distress. She remains very weak appearing. OBJECTIVE: VITALS: Temperature is 97.8, pulse 88, respirations 20/22, blood pressure 143/88. Oxygen saturation on high-flow delivery is 94%. HEENT: Normocephalic, atraumatic. No JVD. CARDIOVASCULAR: Systolic ejection murmur at the lower left sternal border. No S3 gallop. LUNGS: Decreased breath sounds at the bases. Less rhonchi. Less wheezing. EXTREMITIES: Positive for mild edema. No cyanosis, no clubbing. Calves are nontender to palpation. GI: Abdomen is soft, nontender, and nondistended. Bowel sounds are positive. SKIN: No acute rash. NEUROLOGIC: Limited at the present time. IMPRESSION: 1. Recurrent bronchitis. 2. Advanced chronic obstructive pulmonary disease. 3. Sepsis syndrome. 4. Advanced lung cancer with liver and splenic metastasis. 5. Coronary artery disease. 6. Chronic anemia. PLAN: The patient appears comfortable this morning. She is mildly short of breath, but in no acute distress. She remains very weak appearing. I did discuss the case with the night nurse at length. The night nurse stated that the patient had a pretty good night, but was refusing her physical therapy yesterday. I did discuss the issue with the patient this morning. On physical exam, there is less bronchospasm noted. I will continue the current nebulizer treatments and try decreasing the intravenous steroids this morning. The patient remains on antibiotic therapy - as per Infectious Disease. Input by Oncology is also noted. Input by Vaishnavi Suarez (palliative care) is also noted. Clinical status of the patient is somewhat improved - compared to the initial presentation. However, unfortunately, the overall status/prognosis for this patient remains very poor. All are aware. I will discuss the above with the attending physician later this morning. Donato Razo MD [facility]
[2017-06-14] MEDS: Cefepime 1gm in NS 100ml 1 GM/100 ML BAG IVPB SCH ×2 (09:00→23:18)
[2017-06-14] MEDS: Enoxaparin 40 mg Syringe SC SCH (09:09)
[2017-06-14] MEDS: MethylPREDNISolone 40 mg Vial IVP SCH ×2 (09:09→21:46)
[2017-06-14] MEDS: Clotrimazole/Betamethasone Cream(15 gm) TOP SCH ×2 (09:09→17:18)
[2017-06-14] MEDS: Metoprolol Succinate 25 mg XL Tab PO SCH (09:10)
[2017-06-14] MEDS: Pantoprazole 40 mg EC Tab PO SCH (09:26)
[2017-06-14] MEDS: POLYETHYLENE GLYCOL 3350 17 GM/Dose PACKET PO SCH (09:26)
--- NOTE | 2017-06-14 11:12 | PN ---
DATE: 06/12/2017 [facility] hospital visit on the medical floor. For Dr. Jain. Refer to the visit by Dr. Gildardo Jain dated 06/11/2017 for her original consultation. SUBJECTIVE: The patient is an 81-year-old female recently seen in Dr. Jain's office, admitted by the emergency room by Dr. Proctor for increasing weakness, shortness of breath, back, and chest pain. 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 She was thus started radiation treatment this week and is now admitted with radiation treatment begun earlier today. At present, the patient is now transferred from telemetry to the fifth floor with Dr. Jain planning to begin chemotherapy soon. To this time, we will transfer to the Oncology floor in when the bed is available. PHYSICAL EXAMINATION: GENERAL: The patient appears in no acute distress this visit. VITAL SIGNS: Temperature 97.7, pulse 76, respirations 22, blood pressure 140/73, and pulse oximetry 92%. HEENT: Unremarkable. NECK: Supple. HEART: Regular rate. LUNGS: Clear. ABDOMEN: Obese, soft, and nontender. EXTREMITIES: No edema. SKIN: Warm and dry. NEUROLOGIC: Awake and alert. REVIEW OF SYSTEMS: The patient did report diarrhea for which vancomycin was begun as an outpatient empirically; however, this is no longer a problem. Also Mycelex Johnny were given with oropharyngeal candidiasis now appearing to be modestly improved. LABORATORY DATA: The patient's labs were done. White blood cell count of 23,700, hemoglobin of 9.5, hematocrit of 31.2, and platelet count of 128,000, with a chem metabolic panel dated from earlier today showing a BUN of 32 with creatinine of 0.6. Troponin yesterday was 0.29, with B-natriuretic peptide of 6700 and alkaline phosphatase of 211. Total protein is 5.4. Her INR was 1.68, two days prior. Urine culture showed no growth from 06/10/2017 as did the blood cultures x2 also being negative. ASSESSMENT: Stage IV KRAS mutated non-small cell carcinoma of the lung, metastasis to the liver and spleen with tumor compression of the left mainstem bronchus, exacerbation of chronic obstructive pulmonary disease, hypertension, atherosclerotic cardiovascular disease, degenerative joint disease of the knee, and history of smoking. The patient also is status post [id number] myocardial infarction on 04/2017. PLAN: Plan for this patient is to continue her present medical regimen with radiation begun with chemotherapy with possibly Opdivo to be begun as per Dr. Jain's recommendations. The patient did have a PET CT scan done on 05/25/2017. It was read as findings consistent with malignant neoplasm within the left lower lung with mediastinal involvement as delineated mild patchy opacity of the mediastinal right lower lobe unclear significant, possibly inflammatory infections, emphysematous changes and mediastinal adenopathy as well as large gastrohepatic lymph node, suspicious for metastatic disease in the right pelvis, lesions within the liver and spleen with FDG uptake consistent with metastatic disease, findings significant for osseous metastases involving the left iliac and sternum. Soft tissue mass and posterior tissue of sacrum demonstrate FDG uptake neoplasm mild, adrenal gland, hypertrophy with probable 7 mm nodule in the left with minimal increased FDG uptake nonspecific. Plan will be as above with the prognosis for this patient guarded with a transfer to 3-R med/surg floor once the bed is available. We will monitor clinically and with labs. Dereck Leyva MD
--- NOTE | 2017-06-14 14:27 | IP.NPCORE ---
COPD Progress Note - COPD Progress Note Plan to assess at outpatient follow up: Yes Symptoms:: Increase in Dyspnea, Cough Initial CXR:: left perihilar mass Date:: 06/10/17 Oxygen Saturation/Pulse Oximetry:: 91 Nebulizers Q2-4 hrs:: Duonebs/Albuterol Therapy Antibiotics (Name/Dose/Frequency):: [id number] mg iv q12, Maxipime 1 gm q12 , Systemic Steroids w/ methylprednisolone Name/Dose/Frequency:: Solumedrol 30 mg iv q12 Oxygen Delivery Method: Non-Rebreather Oxygen Flow Rate: 40 Smoking cessation counseling all stages copd exacerbation: No (non smoker)
--- NOTE | 2017-06-14 18:58 | PN ---
DATE: SUBJECTIVE: The patient is an 81-year-old, seen and examined, lying in bed, seems to be short of breath, got third round of radiation therapy today. States she feels little better. PHYSICAL EXAMINATION: VITAL SIGNS: She is afebrile, pulse 90, pulse ox is 91%, respirations 14, blood pressure 129/64. LUNGS: Bilateral soft crackle in upper lung region. HEART: S1 and S2, audible. ABDOMEN: Soft, nontender. No rebound. No guarding. NEUROLOGIC: The patient is awake, alert, oriented, communicative. LABORATORY EXAMINATION: WBC 26.3, hemoglobin 9.7, hematocrit 32.8, platelet 174. Chemistry: Sodium 140, potassium 4.1, chloride 108, CO2 of 25, BUN 18, creatinine 0.5, blood sugar 241. Blood culture and urine culture are negative. ASSESSMENT: 1. Chronic obstructive pulmonary disease exacerbation. 2. Metastatic lung cancer, metastasis to the liver. 3. Asthmatic bronchitis. 4. Post-obstructive pneumonia. 5. Coronary artery disease. 6. Chronic anemia. 7. Deconditioning. 8. Significant mediastinal lymphadenopathy. PLAN: The patient is on doxycycline. She is getting Lasix. She is on Maxipime. Discontinue IV fluid. Encourage p.o. intake. We will start her on Ensure. We will continue her radiation therapy. We will follow up patient in a.m. Demarcus Proctor MD
[2017-06-14] MEDS ORDERED: Levalbuterol 0.63 MG/3 ML Inhal Soln UD IH STA (19:51)
[2017-06-14] MEDS ORDERED: MethylPREDNISolone 40 mg Vial IV STA (19:55)
--- NOTE | 2017-06-14 20:06 | CP.PCM.PN ---
Subjective - Date & Time of Evaluation Date of Evaluation: 06/14/17 Time of Evaluation: 19:58 - Subjective Subjective: Patient was seen because of sob and heart rate of 180's. Denies chest pain, sweating, palpitation, nausea. This 81 year old woman was admitted with weakness, tiredness, chest pain, back pain, sob,lethargy. Has PMH of non small cell lung cancer,HTN, CAD, HLD,COPD, anxiety, bilateral OA , knee replacement. Objective - Vital Signs/Intake and Output Vital Signs (last 24 hours): Temp Pulse Resp BP Pulse Ox 97.8 F 107 H 24 119/63 93 L 06/14/17 16:00 06/14/17 18:00 06/14/17 16:00 06/14/17 16:00 06/14/17 16:00 Intake and Output: 06/14/17 06/15/17 18:59 06:59 Intake Total 580 Balance 580 - Medications Medications: Current Medications Acetaminophen (Tylenol 325mg Tab) 650 mg PO Q6H PRN PRN Reason: Fever >100.4 F Last Admin: 06/14/17 04:31 Dose: 650 mg Alprazolam (Xanax) 0.25 mg PO BID PRN; Protocol PRN Reason: Anxiety Last Admin: 06/14/17 09:33 Dose: 0.25 mg Aspirin (Aspirin Chewable) 81 mg PO DAILY [facility] Last Admin: 06/14/17 09:08 Dose: 81 mg Betamethasone/Clotrimazole (Lotrisone) 0 gm TOP BID [facility] Last Admin: 06/14/17 17:18 Dose: 1 applic Budesonide (Pulmicort Respules) 0.5 mg IH [id number] [facility] Last Admin: 06/14/17 18:56 Dose: 0.5 mg Clotrimazole (Mycelex Johnny) 10 mg PO 5XD [facility] Last Admin: 06/14/17 17:17 Dose: 10 mg Doxycycline Hyclate (Doryx) 100 mg PO Q12 [facility] PRN Reason: Protocol Stop: 06/22/17 22:01 Last Admin: 06/14/17 09:08 Dose: 100 mg Enoxaparin Sodium (Lovenox) 40 mg SC DAILY [facility] PRN Reason: Protocol Last Admin: 06/14/17 09:09 Dose: 40 mg Folic Acid (Folic Acid) 1 mg PO DAILY [facility] Last Admin: 06/14/17 09:08 Dose: 1 mg Furosemide (Lasix) 40 mg PO DAILY [facility] Last Admin: 06/14/17 09:08 Dose: 40 mg Guaifenesin/Codeine Phosphate (Robitussin W/Codeine) 5 ml PO Q6H PRN PRN Reason: Cough and congestion Last Admin: 06/14/17 16:10 Dose: 5 ml Cefepime HCl (Maxipime 1gm) 1 gm in 100 mls @ 100 mls/hr IVPB Q12 [facility] PRN Reason: Protocol Last Admin: 06/14/17 09:00 Dose: 100 mls/hr Latanoprost (Xalatan Opht) 0 ml OU HS [facility] Last Admin: 06/13/17 21:12 Dose: 2.5 ml Levalbuterol HCl (Xopenex) 0.63 mg IH [id number] [facility] Last Admin: 06/14/17 18:56 Dose: 0.63 mg Methylprednisolone (Solu-Medrol) 30 mg IVP Q12 [facility] Last Admin: 06/14/17 09:09 Dose: 30 mg Methylprednisolone (Solu-Medrol) 60 mg IV STAT STA Stop: 06/14/17 19:56 Metoprolol Succinate (Toprol Xl) 25 mg PO BRK [facility] Last Admin: 06/14/17 09:10 Dose: 25 mg Ondansetron HCl (Zofran Inj) 4 mg IVP Q6H PRN PRN Reason: Nausea/Vomiting Last Admin: 06/12/17 06:52 Dose: 4 mg Pantoprazole Sodium (Protonix Ec Tab) 40 mg PO DAILY [facility] Last Admin: 06/14/17 09:26 Dose: 40 mg Polyethylene Glycol (Miralax) 17 gm PO DAILY [facility] Last Admin: 06/14/17 09:26 Dose: 17 gm - Labs Labs: 06/14/17 06:10 06/14/17 06:10 PT 18.7 SECONDS (9.4-12.5) H 06/10/17 10:35 INR 1.68 (0.93-1.08) H 06/10/17 10:35 APTT 26.2 Seconds (25.1-36.5) 06/10/17 10:35 Last Vital Signs Temp 97.8 F 06/14/17 16:00 Pulse 107 H 06/14/17 18:00 Resp 24 06/14/17 16:00 BP 119/63 06/14/17 16:00 Pulse Ox 93 L 06/14/17 16:00 - Constitutional Appears: No Acute Distress - Head Exam Head Exam: ATRAUMATIC, NORMAL INSPECTION, NORMOCEPHALIC - Eye Exam Eye Exam: Normal appearance - ENT Exam ENT Exam: Mucous Membranes Moist - Neck Exam Neck Exam: Normal Inspection - Respiratory Exam Respiratory Exam: Rales (Bilateral basal.), Respiratory Distress (Mild.) - Cardiovascular Exam Cardiovascular Exam: Tachycardia, REGULAR RHYTHM, +S1 (Normal.), +S2 (Normal.). absent: JVD - GI/Abdominal Exam GI & Abdominal Exam: Normal Bowel Sounds. absent: Distended - Rectal Exam Rectal Exam: Deferred - Exam Additional comments: Deferred. - Extremities Exam Extremities Exam: Normal Inspection - Back Exam Back Exam: NORMAL INSPECTION - Neurological Exam Neurological Exam: Alert, Awake, Oriented x3 - Psychiatric Exam Psychiatric exam: Normal Affect, Normal Mood - Skin Skin Exam: Normal Color Assessment and Plan - Assessment and Plan (Free Text) Assessment: Sinus Tachycardia. Dyspnea. Exacerbation of COPD. Lung cancer. Hypertension. CAD. OA. HLD. Plan: Lasix 80 mg IV stat. Xopenex 0.63 Neb treatment . Ativan 0.5 mg IV stat. Solumedrol 60 mg IV stat. Lopressor 5 mg IV stat. Continue present management.
[2017-06-14] MEDS ORDERED: Metoprolol 1 mg/ml Inj IVP STA (20:19)
[2017-06-14] MEDS ORDERED: Metoprolol 1 mg/ml Inj IVP ONE (20:24)
--- NOTE | 2017-06-14 21:32 | PN ---
DATE: 06/14/2017 This is [facility]'s hospital visit on the medical floor. For Dr. Jain. SUBJECTIVE: The patient is an 81-year-old female seen lying awake in the bed, known stage IV KRAS-mutated non-small cell CA of the lung with metastasis to the liver, spleen with tumor compression of the left mainstem bronchus, admitted for exacerbation of COPD. At present, the patient has continued radiation as per Dr. Shari Barahona with the patient unfortunately now suffering an exacerbation of her COPD with Dr. Harrison, health physician, administering care to the patient at present with shortness of breath, worsening with a heart rate in the 180s with anxiety component. At present, she is now resting more comfortably after anxiolytics were given with a dose of IV steroids to continue along with nebulizer treatments and IV Lasix. This patient is unstable and should not be moved from the medical floor as was suggested earlier to be transferred to TCU. With this, there are also plans should she improve for her to receive her chemotherapy as per Dr. Jian's protocol tomorrow if possible and radiation to continue. OBJECTIVE PHYSICAL EXAMINATION: VITAL SIGNS: Temperature 97.8; pulse 107, down from high rate into the 180s; respirations 24; blood pressure 155/88, which is now improved; oxygen saturation of 93% after treatment by Dr. Harrison. HEENT: Oxygen is on. Otherwise, unremarkable. NECK: Supple. HEART: Tachy rate, regular rhythm. LUNGS: Faint crackles at the bases bilaterally. Rare wheezes. ABDOMEN: Obese, soft, nontender. EXTREMITIES: No edema. SKIN: Warm and dry. NEUROLOGIC: She is somnolent, but arousable after anxiolytics were given. LABORATORY DATA: The patient's labs were done. White blood cell count of 26.3, hemoglobin 9.7, hematocrit of 32.8, platelet count of 174,000 with a chem metabolic panel within normal range except for nonfasting glucose of 241 secondary to IV steroids. Procalcitonin done yesterday was 0.14. Her INR was done on 06/10/2017, it was 1.68. This will be repeated. Urine was done yesterday with large amount of blood noted. This will also be repeated. The other testing for this patient included a Gram stain sputum culture which was done yesterday showing rare polymorphonuclear white blood cells, few gram-positive cocci in pairs. Cultures pending. Urine culture is no growth with blood culture no growth after 24 hours. ASSESSMENT: The assessment for this patient is that of exacerbation of chronic obstructive pulmonary disease, stage IV KRAS mutated non-small cell cancer of the lung with metastases to the liver, spleen, tumor compression of the left mainstem bronchus, atherosclerotic cardiovascular disease, deconditioning, tricuspid regurgitation, pulmonary hypertension. PLAN: Plan for this patient is to continue present medical regimen as per Dr. Harrison as the patient is modestly improved. We will continue her present medical regimen. We will repeat her INR as it was elevated from her original admission. We will continue the present medical regimen with IV antibiotics as indicated along with IV Solu-Medrol and [employer] industrial [employer] consultant's recommendations. The prognosis for this patient is guarded. We will monitor clinically and with labs. Dereck Leyva MD
--- NOTE | 2017-06-14 21:47 | PN ---
DATE: 06/14/2017 REASON FOR CONSULTATION AND FOLLOWUP: Coronary artery disease, occluded LAD since 12/22/2005, lung CA, admitted with shortness of breath, possibly secondary to respiratory infection, cardiac evaluation. SUBJECTIVE: The patient denies any chest pain, but complaint of shortness of breath, status post radiation x2. Today, going for radiation again. PHYSICAL EXAMINATION GENERAL: Mild respiratory distress. Mild wheezing. VITAL SIGNS: Temperature afebrile, heart rate 76, and blood pressure 109/63. HEENT: PERRLA. Extraocular muscles intact. NECK: Supple. No carotid bruits or thyromegaly. CHEST: Clear to auscultation. HEART: S1 and S2, regular. ABDOMEN: Soft. EXTREMITIES: Clubbing and cyanosis negative. LABORATORY DATA: Blood workup as follows: WBC 26.3, hemoglobin 9.3, hematocrit 32.8, and platelet count 174. Chemistry shows sodium 140, potassium 4.0, chloride 108, carbon dioxide 25, anion gap of 11, BUN 18, and creatinine 0.5. Total protein 5.3, albumin 2.6, albumin-globulin ratio is 1. IMPRESSION: Protein-calorie malnutrition, moderate, which was not present on admission; anemia; lung cancer, status post radiation 2 settings, going third session for today; history of coronary artery disease; left anterior descending occluded since 12/22/2005. The patient had cardiac catheterization, repeat 05/04/2017, [id number] myocardial infarction. Cardiac catheterization revealed essentially unchanged. Cardiac catheterization on 12/22/2005 with left anterior descending totally occluded, very well collateralized from right coronary artery. The patient had echocardiography done because of increasing shortness of breath that show left ventricular function preserved. As of yesterday, the echo showed ejection fraction 55%, right ventricle severely dilated, mild aortic regurgitation, aortic sclerosis with mild aortic stenosis, [id number] mitral regurgitation, [id number] tricuspid regurgitation, right ventricular systolic pressure 77 consists with severe pulmonary hypertension. History of lung cancer, on local radiation. Chronic obstructive pulmonary disease. RECOMMENDATION: Continue aggressive treatment for COPD. CVS status is stable. Continue supportive care. Overall, the patient's condition is critical. Long-term prognosis is extremely guarded. We will supplement nutritional support because of protein-calorie malnutrition. We will follow with you. Thank you Dr. Proctor, for providing us the opportunity in taking care of the patient, Valeria Mayen. Mara Norman MD
[2017-06-14] MEDS: Latanoprost 2.5 ml Opht Soln OU SCH (22:59)
[2017-06-14] MEDS ORDERED: DiphenhydrAMINE 50 mg/ml Inj IVP STA (23:03)
[2017-06-15] MEDS ORDERED: Levalbuterol 0.63 MG/3 ML Inhal Soln UD IH STA ×2 (00:52→09:32)
[2017-06-15] MEDS ORDERED: MethylPREDNISolone 40 mg Vial IVP ONE (00:54)
[2017-06-15] MEDS: Levalbuterol 0.63 MG/3 ML Inhal Soln UD IH SCH ×2 (01:04→09:02)
--- NOTE | 2017-06-15 02:13 | PN ---
DATE: 06/14/2017 SUBJECTIVE: The patient is in bed, in no acute distress. The patient was seen earlier this morning in room 363, bed 1. PHYSICAL EXAMINATION: VITAL SIGNS: Temperature is 98, blood pressure is 150/80, respiratory rate of 22, heart rate of 125. HEENT: Unremarkable. NECK: Supple. LUNGS: Have decreased breath sounds. HEART: Normal S1, S2. ABDOMEN: Soft, nontender. LABORATORY EXAMINATION: Reveals a white count of 26,000, hemoglobin of 9, platelets of 174. Coagulation is noted. Chemistries reveals a BUN of 18, creatinine of 0.5. Procalcitonin is 0.30 and a repeat one is 0.14 and renal function is within normal limits with a GFR greater than 60. Urinalysis is noted and microbiology reveals that blood cultures are negative and urine culture is negative. Sputum culture is pending. REVIEW OF ORDERS: Reveals the patient to be on p.o. doxycycline and Solu-Medrol. 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 The patient also has metastases to the liver, spleen and sacral bone. The patient has home O2 therapy and hypertensive and chronic obstructive lung disease, asthma, emphysema, who was admitted on this admission with severe sepsis, with a mass in the lateral aspect consistent with metastatic disease. The patient is with healthcare-associated pneumonia and negative cultures, negative urine cultures and normal procalcitonin. Currently on p.o. doxycycline, afebrile with all cultures are negative. Dr. Razo's note is reviewed. We will follow closely with you. Toi Simeon MD
[2017-06-15] MEDS ORDERED: Metoprolol 1 mg/ml Inj IVP ONE (02:19)
[2017-06-15 02:48] LABS: ARTERIAL BLOOD GAS HCO3 33.4 mmol/L (21-28); ARTERIAL BLOOD GAS O2 CAPACITY 15.2 mL/dl (16-24); ARTERIAL BLOOD GAS O2 CONTENT 12.4 ML/dl (15-23); ARTERIAL BLOOD GAS PH 7.53 (7.35-7.45); ARTERIAL BLOOD HGB O2 SAT 78.6 % (95.0-98.0); CARBOXYHEMOGLOBIN 2.7 % (0.5-1.5); HHB 17.7 % (0-5)
[2017-06-15 06:58] LABS: ARTERIAL BLOOD GAS HCO3 37.6 mmol/L (21-28); ARTERIAL BLOOD GAS O2 CAPACITY 14.4 mL/dl (16-24); ARTERIAL BLOOD GAS O2 CONTENT 14.1 ML/dl (15-23); ARTERIAL BLOOD GAS PH 7.52 (7.35-7.45); CARBOXYHEMOGLOBIN 2.4 % (0.5-1.5); HHB 1.8 % (0-5); METHEMOGLOBIN 0.8 % (0.0-3.0)
[2017-06-15 07:08] LABS: ALB/GLOB RATIO 0.9 (1.1-1.8); ALKALINE PHOSPHATASE 273 U/L (38-126); ALT/SGPT 53 U/L (7-56); AST/SGOT 37 U/L (14-36); BLOOD UREA NITROGEN 20 mg/dL (7-21); CALCIUM 8.7 mg/dL (8.4-10.5); CARBON DIOXIDE 33 mmol/L (21-33); CHLORIDE 97 mmol/L (98-107); GFR AFRICAN-AMERICAN > 60; GLUCOSE,RANDOM 316 mg/dL (70-110); POTASSIUM 3.2 mmol/L (3.6-5.0); SODIUM 138 mmol/L (132-148); TOTAL PROTEIN 5.9 g/dL (5.8-8.3)
[2017-06-15 07:14] LABS: HEMATOCRIT 37.7 % (36.0-48.0); MEAN CELL VOLUME 92.6 fl (80.0-105.0); MEAN CORPUSCULAR HEMOGLOBIN 27.3 pg (25.0-35.0); MEAN CORPUSCULAR HGB CONC 29.4 g/dl (31.0-37.0); RED CELL DISTRIBUTION WIDTH 19.8 % (11.5-14.5); WHITE BLOOD COUNT 24.1 10^3/ul (4.5-11.0)
[2017-06-15] MEDS ORDERED: MethylPREDNISolone 40 mg Vial IVP SCH (07:45)
--- NOTE | 2017-06-15 08:09 | PN ---
DATE: 06/15/2017 PULMONARY PROGRESS NOTE SUBJECTIVE: The patient appears sedated this morning. She is arousable. She is mildly short of breath, but in no acute distress. PHYSICAL EXAMINATION: VITAL SIGNS: Temperature is 97.8, pulse is 99, respirations are 20/22, and blood pressure is 172/97. Oxygen saturation on BiPAP is 97%. HEENT: Normocephalic and atraumatic. NECK: No JVD. CARDIOVASCULAR: Systolic ejection murmur at the lower left sternal border. No S3, gallop. LUNGS: Decreased breath sounds at the bases. Scattered bilateral rhonchi. +Minimal wheezing. EXTREMITIES: Positive for mild edema. No cyanosis and no clubbing. Calves are nontender to palpation. GASTROINTESTINAL: Abdomen is soft, nontender and nondistended. Bowel sounds are positive. SKIN: No acute rash. NEUROLOGIC: Exam is limited at the present time. PERTINENT LABORATORY DATA: Chest x-ray was done this morning and reviewed. The film today-- shows possibly slightly more infiltrate in the left lung compared to the previous film. Arterial blood gas was done on high-flow oxygen. Results are: PH of 7.53, pCO2 of 40, and pO2 of 39. Arterial blood gas was repeated on BiPAP with 70% oxygen. Results are: PH of 7.52, pCO2 of 46, and pO2 of 78. IMPRESSION: 1. Recurrent bronchitis. 2. Advanced chronic obstructive pulmonary disease. 3. Sepsis syndrome. 4. Advanced lung cancer with liver and splenic metastasis. 5. Coronary artery disease. 6. Chronic anemia. PLAN: The patient is currently mildly sedated this morning. She is also mildly short of breath, but in no acute distress. She remains very weak appearing. I did discuss the case with the night nurse at length. The night nurse stated that the patient had a rough night. During the last shift, the patient became more short of breath. Cardiac arrhythmias with rapid heart rates were also noted. I did review the chest x-ray as above. The x-ray shows possibly slightly more infiltrate in the left lung. I have also reviewed the arterial blood gasses. The last arterial blood gas reveals a mixed disorder with a significant rise in the alveolar-arterial gradient. I will continue with the BiPAP for now. On physical exam, the patient remains in mild bronchospasm. I will continue with the current nebulizer treatments and try increasing the intravenous steroids this morning. The patient remains on antibiotic therapy - as per infectious disease. Input by Dr. Simeon is noted. There are no temperatures noted. The leukocytosis has decreased. Inputs by Cardiology and Oncology are also noted. Unfortunately, the clinical status and overall prognosis for this patient remains very poor. I will discuss the above with the with the attending physician later this morning. Donato Razo MD MTDD
[2017-06-15 08:42] VITALS: BP 107/67
[2017-06-15 08:46] LABS: VENOUS BLOOD GAS BASE EXCESS 15.2 mmol/L (0.0-2.0); VENOUS BLOOD PH 7.53 (7.32-7.43)
[2017-06-15 09:02] LABS: INR 2.07 (0.93-1.08)
[2017-06-15] MEDS: Budesonide 0.5 mg/2 ml Inhal Susp UD IH SCH (09:03)
--- NOTE | 2017-06-15 09:42 | CP.PCM.PN ---
Subjective - Date & Time of Evaluation Date of Evaluation: 06/15/17 Time of Evaluation: 09:30 - Subjective Subjective: Ms Mayen is an 81 year old female who was getting palliative radiation to the left hilar lung mass. She has had three treatments so far. As per the nurse, she was put in restraints overnight because she was disoriented and trying to pull out her lines. Currently, she appears lethargic. She clinically appears worse today. Her platelet levels dropped to the 40s from yesterday. We will be holding her RT for now given her sudden worsening clinical condition Objective - Vital Signs/Intake and Output Vital Signs (last 24 hours): Temp Pulse Resp BP Pulse Ox 99.2 F 117 H 28 H 107/67 97 06/15/17 08:41 06/15/17 09:11 06/15/17 08:41 06/15/17 08:41 06/15/17 08:41 Intake and Output: 06/15/17 06/15/17 06:59 18:59 Intake Total 240 Balance 240 - Medications Medications: Current Medications Acetaminophen (Tylenol 325mg Tab) 650 mg PO Q6H PRN PRN Reason: Fever >100.4 F Last Admin: 06/14/17 04:31 Dose: 650 mg Alprazolam (Xanax) 0.25 mg PO BID PRN; Protocol PRN Reason: Anxiety Last Admin: 06/14/17 09:33 Dose: 0.25 mg Aspirin (Aspirin Chewable) 81 mg PO DAILY [facility] Last Admin: 06/14/17 09:08 Dose: 81 mg Betamethasone/Clotrimazole (Lotrisone) 0 gm TOP BID [facility] Last Admin: 06/14/17 17:18 Dose: 1 applic Budesonide (Pulmicort Respules) 0.5 mg IH [id number] [facility] Last Admin: 06/15/17 09:03 Dose: 0.5 mg Clotrimazole (Mycelex Johnny) 10 mg PO 5XD [facility] Last Admin: 06/15/17 05:23 Dose: Not Given Doxycycline Hyclate (Doryx) 100 mg PO Q12 [facility] PRN Reason: Protocol Stop: 06/22/17 22:01 Last Admin: 06/14/17 21:47 Dose: Not Given Enoxaparin Sodium (Lovenox) 40 mg SC DAILY [facility] PRN Reason: Protocol Last Admin: 06/14/17 09:09 Dose: 40 mg Folic Acid (Folic Acid) 1 mg PO DAILY [facility] Last Admin: 06/14/17 09:08 Dose: 1 mg Furosemide (Lasix) 40 mg PO DAILY [facility] Last Admin: 06/14/17 09:08 Dose: 40 mg Guaifenesin/Codeine Phosphate (Robitussin W/Codeine) 5 ml PO Q6H PRN PRN Reason: Cough and congestion Last Admin: 06/14/17 16:10 Dose: 5 ml Cefepime HCl (Maxipime 1gm) 1 gm in 100 mls @ 100 mls/hr IVPB Q12 [facility] PRN Reason: Protocol Last Admin: 06/14/17 23:18 Dose: 100 mls/hr Latanoprost (Xalatan Opht) 0 ml OU HS [facility] Last Admin: 06/14/17 22:59 Dose: Not Given Levalbuterol HCl (Xopenex) 0.63 mg IH [id number] [facility] Last Admin: 06/15/17 09:02 Dose: 0.63 mg Methylprednisolone (Solu-Medrol) 40 mg IVP Q8H [facility] Last Admin: 06/15/17 08:42 Dose: 40 mg Metoprolol Succinate (Toprol Xl) 25 mg PO BRK [facility] Last Admin: 06/14/17 09:10 Dose: 25 mg Ondansetron HCl (Zofran Inj) 4 mg IVP Q6H PRN PRN Reason: Nausea/Vomiting Last Admin: 06/12/17 06:52 Dose: 4 mg Pantoprazole Sodium (Protonix Ec Tab) 40 mg PO DAILY [facility] Last Admin: 06/14/17 09:26 Dose: 40 mg Polyethylene Glycol (Miralax) 17 gm PO DAILY [facility] Last Admin: 06/14/17 09:26 Dose: 17 gm - Labs Labs: 06/15/17 06:00 06/15/17 06:00 PT 23.1 SECONDS (9.4-12.5) H 06/15/17 08:30 INR 2.07 (0.93-1.08) H 06/15/17 08:30 APTT 26.2 Seconds (25.1-36.5) 06/10/17 10:35
[2017-06-15] MEDS: POLYETHYLENE GLYCOL 3350 17 GM/Dose PACKET PO SCH (11:46)
[2017-06-15] MEDS: Metoprolol Succinate 25 mg XL Tab PO SCH (11:47)
[2017-06-15] MEDS: Pantoprazole 40 mg EC Tab PO SCH (11:47)
[2017-06-15] MEDS: Enoxaparin 40 mg Syringe SC SCH (12:19)
[2017-06-15] MEDS ORDERED: Morphine 2 mg/ml ISec IVP STA (12:56)
[2017-06-15] MEDS ORDERED: Morphine PCA 1 mg/ml (25ml) 25 ML IV PRN ×2 (12:57→14:45)
--- NOTE | 2017-06-15 13:04 | CP.PCM.PN ---
Subjective - Date & Time of Evaluation Date of Evaluation: 06/15/17 Time of Evaluation: 06:00 - Subjective Subjective: Tachypneic, tachycardic, accessory muscle use, agitation Objective - Vital Signs/Intake and Output Vital Signs (last 24 hours): Temp Pulse Resp BP Pulse Ox 99.2 F 100 H 28 H 107/67 97 06/15/17 08:41 06/15/17 11:47 06/15/17 08:41 06/15/17 11:47 06/15/17 08:41 Intake and Output: 06/15/17 06/15/17 06:59 18:59 Intake Total 240 Balance 240 - Medications Medications: Current Medications Betamethasone/Clotrimazole (Lotrisone) 0 gm TOP BID [facility] Last Admin: 06/14/17 17:18 Dose: 1 applic Budesonide (Pulmicort Respules) 0.5 mg IH [id number] [facility] Last Admin: 06/15/17 09:03 Dose: 0.5 mg Furosemide (Lasix) 40 mg PO DAILY [facility] Last Admin: 06/15/17 11:45 Dose: Not Given Cefepime HCl (Maxipime 1gm) 1 gm in 100 mls @ 100 mls/hr IVPB Q12 ERMA PRN Reason: Protocol Last Admin: 06/14/17 23:18 Dose: 100 mls/hr Potassium Chloride (Potassium Chloride 10 Meq/100 Ml) 10 meq in 100 mls @ 50 mls/hr IVPB Q2H ERMA Stop: 06/15/17 13:59 Last Admin: 06/15/17 12:14 Dose: 50 mls/hr Morphine Sulfate (Morphine Video Production Assistant 1 Mg/Ml) 25 mls @ 2 mls/hr IV PRN PRN; Protocol ; 2 MG/HR PRN Reason: SOAPSTONER PER MD ORDER Methylprednisolone (Solu-Medrol) 40 mg IVP Q8H [facility] Last Admin: 06/15/17 08:42 Dose: 40 mg - Labs Labs: 06/15/17 06:00 06/15/17 06:00 PT 23.1 SECONDS (9.4-12.5) H 06/15/17 08:30 INR 2.07 (0.93-1.08) H 06/15/17 08:30 APTT 26.2 Seconds (25.1-36.5) 06/10/17 10:35 - Constitutional Appears: Agitated, Chronically Ill - Eye Exam Eye Exam: Normal appearance, PERRL - ENT Exam ENT Exam: Mucous Membranes Moist, Normal Oropharynx - Neck Exam Neck Exam: Normal Inspection - Respiratory Exam Respiratory Exam: Accessory Muscle Use, Rhonchi, Wheezes, Respiratory Distress - Cardiovascular Exam Cardiovascular Exam: Tachycardia, +S1, +S2 - GI/Abdominal Exam GI & Abdominal Exam: Soft, Normal Bowel Sounds - Extremities Exam Extremities Exam: Pedal Edema - Neurological Exam Neurological Exam: Altered Assessment and Plan - Assessment and Plan (Free Text) Assessment: 81 year old female with extensive NSCL cancer who was admitted with COPD exacerbation and disease progression.Was receiving Palliative radiation. Patients condition deteriorating. Increased respiratory distress, hypoxia, agitation. Dr Smith and I met with patients family. Patients son Rudy is POA. Extensive discussion regarding patients condition, prognosis and goals of care ensued. Families questions answered. Family has decided on DNR/DNI. Hospice care also discussed at length. Family very clear in stating that they do not want to pursue an aggressive medical interventions including IV's, lab and radiology testing, blood products, etc. They are requesting comfort measures, pain and symptom management only. Family met with [facility] meteorologist liaison and signed on for GIP services under [facility]. Time spent with family in discussing goals of care,45 minutes Plan: Hospice [id number] for GIP services DNR/DNI Stop all aggressive medical interventions such as IV, antibiotic, lab and radiology testing
[2017-06-15 13:19] VITALS: RESP 30
--- NOTE | 2017-06-15 13:24 | CON ---
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 The patient also was being increasingly lethargic and short of breath. Due to extent of the malignancy, it was decided to proceed with palliative radiation therapy, which was done. The patient received several cycles of palliative radiation therapy, which, however, were complicated by increased cough, sputum production and difficulty breathing. Overnight, the patient developed lethargy, hypoxemia, respiratory distress. She was put on BiPAP and ICU consult was called for further management and monitoring. PAST MEDICAL HISTORY: Hypertension, coronary artery disease, COPD, bilateral knee osteoarthritis, status post knee replacement, anxiety disorder, hyperlipidemia. PAST SURGICAL HISTORY: Significant for left total knee replacement 2 years ago. ALLERGIES: NKDA. CURRENT MEDICATION: Tylenol p.r.n., Xanax p.r.n., aspirin, Pulmicort, doxycycline, Lovenox, Folic acid, Lasix, cefepime, Solu-Medrol 40 mg IV q.8 hours., Zofran p.r.n., and Protonix. PHYSICAL EXAMINATION: VITAL SIGNS: Temperature 99.2, heart rate 117, blood pressure 107/67, respiratory rate 28, oxygen saturation 97% on 70% FiO2 on BiPAP. HEENT: Head and neck atraumatic. LUNGS: Rhonchi and crackles bilaterally. HEART: Regular rate and rhythm. S1, S2 normal. ABDOMEN: Soft, nontender and nondistended. MUSCULOSKELETAL: Trace bilateral pedal and ankle edema. NEUROLOGIC: The patient moves all extremities spontaneously. SKIN: Moist. PSYCH: The patient is somnolent and not responding to commands; however, arousable. LABORATORY DATA: WBC is 24.1, hemoglobin 11.1, platelet count 240. Sodium 138, potassium 3.2 (supplemented), chloride 97, carbon dioxide 33, BUN 20, creatinine 0.5, glucose 316, troponin 0.1, AST 37, ALT 53. Chest x-ray showed left lobar infiltrate with large perihilar mass. Echocardiogram performed 3 days ago showed normal left ventricular wall thickness. Left ventricular function is normal, 55%. The right ventricle is moderately to severely dilated. Systolic function of right ventricle is moderately reduced. There is severe pulmonary hypertension with RVSP 77. ASSESSMENT: This is an 81-year-old lady with progression of hypoxemic respiratory failure, now on bilevel positive airway pressure. Differential diagnosis include progression of postobstructive pneumonia, radiation pneumonitis, pulmonary embolism, worsening of right ventricular failure, with chronic obstructive pulmonary disease exacerbation, congestive heart failure. At present time, situation was discussed with Dr. Jain, Dr. Razo and the patient's daughter. The patient is confused, lethargic and unable to speak for herself and patient's family want to take a bit more time to decide whether to proceed with comfort care only or full aggressive support. Thus meanwhile patient will be going to Intensive Care Unit. Physiologically speaking, however, PPV in the setting severe RV failure may lead to physiological and clinical deterioration, besides , mechanical ventilation will not change the course of extensive metastatic disease. I will proceed with IV steroids, conservative fluid management, conservative oxygen management. I would broaden antibiotics coverage. I would proceed with venous Doppler of lower extremities and upper extremities. If the patient is stable enough or when the patient is stable enough, we will consider CAT scan with PE protocols to rule out venous thromboembolism. We will continue to target euvolemia, euglycemia, normothermia, and oxygen saturation more than 90%. I will continue with pulmonary toilet, bronchodilators, gastrointestinal prophylaxis, deep venous thrombosis prophylaxis. Addendum: family requested DNR/DNI and switch to comfort care/hospice. Palliative care nurse was called. ccm time 40 min Kevyn Smith MD [facility]
[2017-06-15 14:02] VITALS: PULSE 116; O2SAT 89
[2017-06-15 14:06] VITALS: TEMP 101
--- NOTE | 2017-06-15 15:25 | RAD ---
HISTORY: SOB COMPARISON: 06/10/2017 FINDINGS: LUNGS: Left upper lobe opacity and left basilar opacity, possible pneumonia. PLEURA: Bilateral small pleural effusion. No pneumothorax. CARDIOVASCULAR: Evaluation limited by portable technique. Grossly normal size. Apparent widening of mediastinum likely artifactual. OSSEOUS STRUCTURES: No significant abnormalities. VISUALIZED UPPER ABDOMEN: Normal. OTHER FINDINGS: None. IMPRESSION: Small bilateral pleural effusion. Left perihilar and basilar opacity, possible pneumonia.
--- NOTE | 2017-06-15 19:25 | PN ---
DATE: 06/15/2017 SUBJECTIVE: The patient is seen earlier this morning in room 363, bed 1. The patient's condition continued to deteriorate, and the patient is more short of breath and continues to do poorly. There has been no abdominal pain. There is shortness of breath. There has been fevers. PHYSICAL EXAMINATION: VITAL SIGNS: Temperature is 101, blood pressure is 100/60, respiratory rate of 30, heart rate of 120. HEENT: Examination of HEENT is unremarkable. NECK: Supple. LUNGS: Have decreased breath sounds. HEART: Normal S1, S2. ABDOMEN: Soft and nontender. LABORATORY EXAMINATION: Reveals a white count of 24,000, hemoglobin of 11. BUN of 20, creatinine of 0.5. Urinalysis is noted, and Microbiology reveals the blood cultures are negative. Urine cultures are negative. Sputum cultures are normal singh. Vaishnavi Suarez's note is reviewed, and the patient's family want all aggressive treatments to be stopped and hospice and comfort measures only. 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 The patient has lung cancer with metastases to liver, spleen, and sacral bone, on home O2 therapy, hypertensive, chronic obstructive lung disease, asthma, emphysema, admitted on this admission with severe sepsis, mass in the lateral aspect consistent with metastatic disease, healthcare-associated pneumonia, negative cultures, blood cultures and urine cultures, negative procalcitonin and supportive care. We will discontinue all antibiotic and hospice evaluation. Case discussed with Vaishnavi Suarez and staff on the floor. We will follow with you if changes are noted. Toi Simeon MD
--- NOTE | 2017-06-16 00:09 | PN ---
DATE: 06/15/2017 LOCATION: The patient is in CCU, bed 6. REASON FOR CONSULTATION: Coronary artery disease, occluded LAD since 12/22/2005, lung carcinoma with metastasis, shortness of breath, and respiratory tract infection. SUBJECTIVE: The patient is known case of carcinoma of the lung with metastasis, was on the floor when she developed respiratory distress, and she was transferred to Intensive Care Unit in CCU, bed 6. The patient is still having mild shortness of breath. The patient is status post radiation x2. PHYSICAL EXAMINATION: VITAL SIGNS: Blood pressure 107/67, temperature 101, respirations 30, and pulse 116. HEENT: Head is normocephalic. Eyes; pupils normal. Conjunctivae slightly pale. NECK: JVP low. Carotids equal. THORAX: AP diameter normal. Bilateral wheezing. CARDIOVASCULAR: S1 and S2. ABDOMEN: Soft. Bowel sounds normal. EXTREMITIES: There is no cyanosis. LABORATORY DATA: WBC 24.1, hemoglobin 11.1, hematocrit 37.7, and platelets 42. Sodium 138, potassium 3.2, BUN 20, and creatinine 0.5. Troponin 0.10. Random sugar 316. Protein 5.9 and albumin 2.9. Chest x-ray repeated, bilateral small pleural effusion, left perihilar and basilar opacity, possible pneumonia. DIAGNOSES: Respiratory distress, carcinoma of lung with metastasis, pneumonia, respiratory tract infection, history of coronary artery disease, and left anterior descending totally occluded since 12/22/2005. The patient had repeat cardiac catheterization on 05/04/2017 due to non-ST segment elevation myocardial infarction. Cardiac catheterization revealed essentially unchanged from 12/22/2005 with complete occlusion of left anterior descending artery, which was very well collateralized from the right coronary artery. The patient also had echocardiogram, which showed preserved left ventricular function with ejection fraction 55%. Right ventricle is clearly dilated, mild aortic regurgitation, mild aortic stenosis, [id number] mitral regurgitation, [id number] tricuspid regurgitation, and right ventricular systolic pressure of 77 consistent with severe pulmonary hypertension, chronic obstructive lung disease, and carcinoma of the lung with metastasis. PLAN: The patient's family is deciding whether at this point. In the meantime, we will continue present therapy at this point and we will closely follow. Mara Hidalgo MD [facility] # [id number]
--- NOTE | 2017-06-16 09:35 | CARD ---
APPROVED REPORT EKG Measurement Heart [id number] <Conclusion> Sinus tachycardia with premature atrial complexes Inferior infarct, age undetermined Anteroseptal infarct, age undetermined STTW changes c/w ischemia/RI
== END 2017-06-15 14:40 | disposition hospice, inpatient (51) | DRG 871 ==
LOC: ED 10:24 → ERH 12:26 → 2RSO 14:30 → 5RSO 06-12 18:17 → 3RNO 06-12 21:49 → CCU 06-15 11:20
PROVIDERS: ADMIT Internal Medicine; ATTEND Internal Medicine
PROC: 5A09457 Assistance with Respiratory Ventilation, 24-96 Consecutive Hours, Continuous Positive Airway Pressure (ICD-10-PCS; principal; 2017-06-10)
PROC: DB021ZZ Beam Radiation of Lung using Photons 1 - 10 MeV (ICD-10-PCS; 2017-06-13)
DX: A41.9 Sepsis, unspecified organism (principal); J18.9 Pneumonia, unspecified organism; J96.91 Respiratory failure, unspecified with hypoxia; C78.7 Secondary malignant neoplasm of liver and intrahepatic bile duct; E44.0 Moderate protein-calorie malnutrition; R64 Cachexia; I11.0 Hypertensive heart disease with heart failure; C78.89 Secondary malignant neoplasm of other digestive organs; C79.51 Secondary malignant neoplasm of bone; I50.9 Heart failure, unspecified; C34.90 Malignant neoplasm of unspecified part of unspecified bronchus or lung; J44.1 Chronic obstructive pulmonary disease with (acute) exacerbation; J44.0 Chronic obstructive pulmonary disease with (acute) lower respiratory infection; R65.20 Severe sepsis without septic shock; I25.82 Chronic total occlusion of coronary artery; I27.20 Pulmonary hypertension, unspecified; I25.10 Atherosclerotic heart disease of native coronary artery without angina pectoris; E78.00 Pure hypercholesterolemia, unspecified; D64.9 Anemia, unspecified; R62.7 Adult failure to thrive; R59.0 Localized enlarged lymph nodes; I08.3 Combined rheumatic disorders of mitral, aortic and tricuspid valves; M81.0 Age-related osteoporosis without current pathological fracture; F41.9 Anxiety disorder, unspecified; Z78.1 Physical restraint status; R41.0 Disorientation, unspecified; Z66 Do not resuscitate; Z51.5 Encounter for palliative care; K21.9 Gastro-esophageal reflux disease without esophagitis; Y95 Nosocomial condition; I25.2 Old myocardial infarction; Z98.61 Coronary angioplasty status; Z79.82 Long term (current) use of aspirin; Z79.899 Other long term (current) drug therapy; Z99.81 Dependence on supplemental oxygen; Z96.653 Presence of artificial knee joint, bilateral

== ENCOUNTER 2017-06-15 14:47 | Inpatient (IN) | payer OTHER ==
[2017-06-15] MEDS ORDERED: DiphenhydrAMINE 50 mg/ml Inj IVP SCH (18:00)
[2017-06-15] MEDS: Morphine PCA 1 mg/ml (25ml) 25 ML IV PRN ×2 (19:08→20:34)
[2017-06-15 21:31] VITALS: RESP 18
--- NOTE | 2017-06-16 01:00 | CP.PCM.PRO ---
Pronouncement of Note - Clinical Findings Physical Exam: No Response Verbal/Painful Stimuli, Absent Peripheral Pulses{ Carotid & Femoral}, Absent Heart & Breath Sounds, No Pupillary Light Reflex, No Corneal Reflex, Pupils Fixed & Dilated, Absence of Vital Signs - Pronouncement Time Time of Pronouncement of : 00:50 - Notifications Pronouncement Notifications: Family Notified, Atending Notified Director Of Clinical Trials Notified: No - Autopsy Autopsy Requested: No - [place] [id number]
--- NOTE | 2017-06-16 07:51 | DS ---
HISTORY OF PRESENT ILLNESS: The patient is an 81-year-old, last night events noted, patient became hypoxic, tachycardic. She was given multiple nebulizer treatment, IV steroids and Lasix. Patient was very restless this morning, was placed on BiPAP, was given extra dose of steroid, so patient was transferred to ICU myself and Dr. Smith had a long discussion with the patient. Patient's family stated that they cannot see her suffering, they wanted her to be on hospice care. They do not want her to be resuscitated, getting CPR or get incubated, so patient is being discharged to hospice care. PHYSICAL EXAMINATION: GENERAL: On examination she is minimally responsive. VITAL SIGNS: She is afebrile, temperature 101, pulse 116, respirations 30, blood pressure 107/67. LUNGS: Bilateral rhonchi and crackle. HEART: S1 and S2, audible, tachycardic. ABDOMEN: Soft, obese, nontender. No rebound. No guarding. NEUROLOGIC: Patient is sleepy and minimally arousable. LABORATORY DATA: WBC is 24.1, hemoglobin 11.1, hematocrit 37.7 and platelet of 42. ASSESSMENT: 1. Metastatic lung cancer. 2. Respiratory distress. 3. History of hypertension. 4. Coronary artery disease. 5. Bilateral knee osteoarthritis. PLAN: Patient is being discharged to hospice care. We will discuss with family, they are agreeable. We will put her on comfort care. Demarcus Proctor MD
--- NOTE | 2017-06-17 01:27 | HP ---
HISTORY OF PRESENT ILLNESS: The patient is an 81-year-old. She was recently diagnosed with lung cancer with mediastinal lymphadenopathy, but she shows poorly differentiated adenocarcinoma. She has mets to the liver. The patient was scheduled to have radiation done, but she went into respiratory distress. She was placed on BiPAP, has been on IV antibiotics, has been on steroid. Discussed with the family at length. Prognosis is poor. They made her hospice care, so she was admitted for hospice care. PHYSICAL EXAMINATION GENERAL: She was confused, disoriented, not communicative. VITAL SIGNS: The patient is afebrile, pulse 110, respirations 24 and blood pressure 110/70. LUNGS: Bilateral soft crackle. HEART: S1 and S2 audible. ABDOMEN: Soft, obese and nontender. No rebound. No guarding. NEUROLOGIC: The patient was sleepy and not arousable. ASSESSMENT: 1. Metastatic lung cancer. 2. Osteoarthritis. 3. Coronary artery disease. 4. History of hypertension. PLAN: So, the patient was placed on hospice in the middle of night, she went into respiratory arrest and asystole since she was made DNR, so she was not resuscitated and she . Demarcus Proctor MD
== END 2017-06-16 00:50 | DRG 181 ==
LOC: CCU 14:47
PROVIDERS: ADMIT Internal Medicine; ATTEND Internal Medicine
DX: C34.90 Malignant neoplasm of unspecified part of unspecified bronchus or lung (principal); C78.7 Secondary malignant neoplasm of liver and intrahepatic bile duct; R06.03 Acute respiratory distress; Z51.5 Encounter for palliative care; I25.10 Atherosclerotic heart disease of native coronary artery without angina pectoris; I10 Essential (primary) hypertension; R59.0 Localized enlarged lymph nodes; Z66 Do not resuscitate; M17.0 Bilateral primary osteoarthritis of knee